=== PATIENT | female | born 1945 | race Two or more races ===

== ENCOUNTER → 2017-11-03 | Outpatient (CLI) | payer MEDICARE ==
--- NOTE | 2017-11-05 13:18 | MR ---
EXAMINATION TYPE: MR brain/cspine wo DATE OF EXAM: 11/03/2017 COMPARISON: NONE HISTORY: Essential Tremors,Neck Pain, since 2013 per patient and order. Neck pain causing pain and we akness into both arms and fingers since 2013 with headache and tremors per patient. TECHNIQUE: Multiplanar, multisequence imaging of the cervical spine, brain, and brainstem are all per formed without IV contrast. FINDINGS: Exam is suboptimal as is degraded by patient motion related to known underlying tremor. BRAIN: Diffusion weighted images demonstrate no evidence of a recent infarct or other diffusion abnormality. There is no worrisome extra-axial fluid collection. There is ventricular and sulcal prominence consis tent with diffuse cerebral atrophy. There are few scattered foci of T2 hyperintensity seen throughout the deep and periventricular white matter. Lesions are nonspecific in appearance and distribution ar e most likely on basis of product of chronic small vessel ischemic change in patient this age. Midline structures demonstrate normal morphology. The craniocervical junction appears within normal limits. Normal vascular flow voids are present. There is dominant left vertebral artery. There is tor tuous course to the vertebrobasilar system noted. There is suspected tortuous course to right posteri or communicating artery The visualized sinuses are clear and the globes are intact. IMPRESSION: Mild to moderate diffuse cerebral atrophy and mild chronic small vessel ischemic change. C-SPINE: FINDINGS: Sagittal images of the cervical spine show the craniocervical junction to appear within nor mal limits. The cervical and upper thoracic spinal cord is likely normal in course, caliber, and sig nal. Motion artifact degradation is noted making evaluation suboptimal. Vertebral alignment is anatom ic. There is mild to moderate disc space narrowing C5-C6 level otherwise the vertebral body and intra vertebral disk heights are normal. Posterior spur disc complex C5-C6 level and posterior disc herniat ion C6-C7 level are effacing the anterior thecal sac. There is mild to moderate anterior spurring faith tered C6 level. The bone marrow signal intensity is within normal limits. Axial images show the C2-C3 level to appear within normal limits. Axial images C3-C4 level shows some left-sided uncovertebral facet degenerative changes with spinal c anal is preserved bilateral neural foramina are patent. Axial images at C4-C5 level showed left paracentral disc protrusion and uncovertebral facet degenerat alejandro changes bilaterally. There is mild effacement anterior thecal sac and mild bilateral neuroforamin al narrowing. Axial images at C5-C6 level are significantly degraded by artifact. There is posterior spur disc comp hiral effacing anterior thecal sac and suspected mild bilateral neural foraminal narrowing. Axial images at C6-C7 level are significantly degraded by artifact. There is broad-based posterior di sc protrusion effacing the anterior thecal sac, bilateral neural foramina are patent. Axial images at C7-T1 level are degraded by artifact but felt within normal limits. IMPRESSION: Suboptimal study with multilevel degenerative changes seen most prominent at C5-C6 and C 6-C7 level as detailed above.
== END | disposition home or self-care (01) ==
LOC: RADMRIMAIN 19:27
PROVIDERS: ATTEND Psychiatry & Neurology Neurology
DX: M47.812 Spondylosis without myelopathy or radiculopathy, cervical region (principal); G31.9 Degenerative disease of nervous system, unspecified; I67.82 Cerebral ischemia
CPT/HCPCS: 70551; 72141

== ENCOUNTER 2018-01-02 08:52 | Day surgery (SDC) | payer MEDICARE ==
[2018-01-01 09:47] VITALS: BMI 28.7
[2018-01-02 09:18] VITALS: TEMP 97.7
[2018-01-02] MEDS: LACTATED RINGERS 1,000 ML IV SCH ×2 (09:21→09:24)
[2018-01-02] MEDS ORDERED: PROPOFOL 10 MG/ML 20 ML VIAL IV ONE (09:26)
[2018-01-02] MEDS ORDERED: LIDOCAINE 1% INJ 10MG/ML (20 ML MDV) ONE (09:26)
--- NOTE | 2018-01-02 09:28 | P.GSHP ---
History of Present Illness H&P Date: 01/02/18 Chief Complaint: GERD, GI bleed This a 72-year-old female referred from Dr. Irina Jackson. Patient presents today for EGD colonoscopy. She's had issues with GERD and GI bleed. Past Medical History Past Medical History: GERD/Reflux, Hyperlipidemia, Hypertension, Osteoarthritis (OA) Additional Past Medical History / Comment(s): ANEMIA History of Any Multi-Drug Resistant Organisms: None Reported Past Surgical History: Appendectomy, Cholecystectomy, Hysterectomy Past Anesthesia/Blood Transfusion Reactions: No Reported Reaction Smoking Status: Never smoker - Past Family History Mother Family Medical History: Dementia Brother(s) Family Medical History: Cancer Sister(s) Family Medical History: Cancer Medications and Allergies Home Medications Medication Instructions Recorded Confirmed Type Meloxicam [Mobic] 15 mg PO DAILY 01/01/18 01/02/18 History Omeprazole 40 mg PO DAILY 01/01/18 01/02/18 History Pramipexole [Mirapex] 1 mg PO HS 01/01/18 01/02/18 History Primidone [Mysoline] 50 mg PO HS 01/01/18 01/02/18 History Propranolol [Inderal] 40 mg PO BID 01/01/18 01/02/18 History Simvastatin [Zocor] 20 mg PO DAILY 01/01/18 01/02/18 History Valsartan [Diovan] 80 mg PO DAILY 01/01/18 01/02/18 History Allergies Allergy/AdvReac Type Severity Reaction Status Date / Time No Known Allergies Allergy Verified 01/02/18 09:18 Surgical - Exam Vital Signs Temp Pulse Resp BP Pulse Ox 97.7 F 107 H 20 162/93 93 L 01/02/18 09:17 01/02/18 09:17 01/02/18 09:17 01/02/18 09:17 01/02/18 09:17 - General well developed, no distress - Eyes PERRL - ENT normal pinna - Neck no masses - Respiratory normal expansion - Cardiovascular Rhythm: regular - Abdomen Abdomen: soft, non tender Assessment and Plan Assessment: GERD, GI bleed. We'll perform EGD colonoscopy.
--- NOTE | 2018-01-02 09:49 | P.OP ---
Date of Procedure: 01/02/18 Preoperative Diagnosis: GERD GI bleed Postoperative Diagnosis: Antral gastritis Hiatal hernia Esophagitis External hemorrhoids Procedure(s) Performed: EGD Colonoscopy Anesthesia: MAC Surgeon: Kevin Mckenna Pathology: other (Antrum) Condition: stable Disposition: PACU Description of Procedure: The patient's placed on the endoscopy table in the lateral position. She received IV sedation. Digital rectal exam was performed which revealed external hemorrhoids. The flexible colonoscope was then placed patient anus passed throughout the entire colon. The ileocecal valve was visualized. There was a large amount liquid stool throughout the colon. This limited the view of the mucosa. Cecum appeared normal. The ascending colon and transverse colon was normal. The descending and sigmoid colon was normal. Scope was brought back the rectum was normal. Scope was withdrawn through the anus and there is some minimal internal and more significant external hemorrhoids seen. Scope was withdrawn for patient. The gastroscope was placed into the oropharynx and passed into the esophagus and stomach. Scope was then placed through the pylorus. The first and second portion of the duodenum appeared normal. The scope was then brought back the antrum this appeared mildly inflamed. A biopsies performed. Scope was unretroflexed and remainder of the stomach appeared normal. There was a moderate size hiatal hernia. The hiatal hernia sliding. The GE junction was at 38 cm. The distal esophagus appeared inflamed and a biopsies performed. The proximal esophagus appeared normal. The withdrawn from patient.
[2018-01-02 10:08] VITALS: RESP 16
[2018-01-02 10:27] VITALS: BP 155/84
[2018-01-02 10:56] VITALS: PULSE 80
== END 2018-01-02 10:57 | disposition home or self-care (01) ==
LOC: ORWHC2ENDO 08:52
PROVIDERS: ATTEND Surgery
DX: K29.50 Unspecified chronic gastritis without bleeding (principal); K44.9 Diaphragmatic hernia without obstruction or gangrene; K21.0 Gastro-esophageal reflux disease with esophagitis; K64.4 Residual hemorrhoidal skin tags; K64.8 Other hemorrhoids; E78.5 Hyperlipidemia, unspecified; I10 Essential (primary) hypertension; M19.90 Unspecified osteoarthritis, unspecified site; R25.1 Tremor, unspecified; D64.9 Anemia, unspecified; Z79.1 Long term (current) use of non-steroidal anti-inflammatories (NSAID); Z79.899 Other long term (current) drug therapy
CPT/HCPCS: 88305; 88342; 45378; 43239; J2001; J2704

== ENCOUNTER → 2018-01-16 | Outpatient (CLI) | payer MEDICARE ==
--- NOTE | 2018-01-17 08:52 | NM ---
EXAMINATION TYPE: NM DatScan Brain SPECT DATE OF EXAM: 01/16/2018 COMPARISON: Brain MR 11/03/2017 HISTORY: Essential tremor, G 25.0 TECHNIQUE: 10 drops of Lugol's solution was administered 1 hour prior to injection as a thyroid bloc josie agent. After the administration of 4.35 mCi I-123 Ioflupane DaTscan. Images obtained 3 hours p ost injection. SPECT images of the brain were acquired with axial and coronal reconstructions. FINDINGS: Radio pharmaceutical uptake shows a normal crescent-shaped appearance bilaterally, symmetrically with in the striatum. IMPRESSION: Normal Ashly scan
== END | disposition home or self-care (01) ==
LOC: RADNMMAIN 10:53
PROVIDERS: ATTEND Psychiatry & Neurology Neurology
DX: G25.0 Essential tremor (principal)
CPT/HCPCS: 78607; A9584

== ENCOUNTER → 2018-03-21 | Outpatient (CLI) | payer MEDICARE | END | disposition home or self-care (01) | LOC: LABPAT 08:22 | PROVIDERS: ATTEND Surgery | DX: Z01.812 Encounter for preprocedural laboratory examination (principal); K21.9 Gastro-esophageal reflux disease without esophagitis; Z01.810 Encounter for preprocedural cardiovascular examination | CPT/HCPCS: 36415; 85025; 86850; 86900; 86901; 93005 ==

== ENCOUNTER 2018-03-30 06:47 | Inpatient (IN) | payer MEDICARE ==
[2018-03-21 09:20] LABS: Basophils % (A) 1 %; Eosinophils # (A) 0.1 k/uL (0-0.7); Eosinophils % (A) 2 %; HCT 31.7 % (34.0-46.0); HGB 10.8 gm/dL (11.4-16.0); Lymphocytes # (A) 1.6 k/uL (1.0-4.8); Lymphocytes % (A) 31 %; MCH 29.5 pg (25.0-35.0); MCHC 33.9 g/dL (31.0-37.0); MCV 86.9 fL (80.0-100.0); Mean Platelet Volume 7.1; Monocytes # (A) 0.4 k/uL (0-1.0); Monocytes % (A) 7 %; Neutrophils % (A) 58 %; Platelet Count 338 k/uL (150-450); RBC 3.65 m/uL (3.80-5.40); WBC 5.2 k/uL (3.8-10.6)
[2018-03-22 15:48] VITALS: BMI 29.2
[~2018-03-30 06:47] MED LIST: DEXAMETHASONE SOD PHOSPHATE 10 MG/ML 1 ML VIAL IV ONE; HEPARIN SODIUM,PORCINE 5,000 UNIT/ML 1 ML VIAL SQ ONE; LACTATED RINGERS 1,000 ML IV SCH; LIDOCAINE 1% 20 ML VIAL (10MG/ML) FOR IV START INTRADERMA PRN; MIDAZOLAM 2 MG/2 ML VIAL IV PRN; ONDANSETRON 4 MG/2 ML VIAL IVP ONE; SCOPOLAMINE 1.5MG/72HR PATCH TRANSDERM ONE; ceFAZolin IN SWFI 2 GM/20 ML SYRINGE IVP ONE
--- NOTE | 2018-03-30 07:51 | P.GSHP ---
History of Present Illness H&P Date: 03/30/18 Chief Complaint: GERD This is a 72-year-old female referred from that Miguel GENAO. Patient has excellent of GERD. She has issues with reflux in the supine position. She presents today for laparoscopic Roxy fundoplication.The patient has had long- standing problems with reflux esophagitis. The patient underwent recent EGD is found have evidence of esophagitis. Patient has been well informed on the procedure of laparoscopic Roxy fundoplication. The patient is aware the risk of the conversion to the open procedure, risk of injury to the stomach, liver and spleen. The patient is also a risk of recurrent GERD and dysphagia symptoms. The patient understands there is a postoperative diet of full liquids for 2 weeks after surgery. Past Medical History Past Medical History: GERD/Reflux, Hyperlipidemia, Hypertension, Osteoarthritis (OA) Additional Past Medical History / Comment(s): tremors in hand and heads, varicose veins rt leg, occasional dizzy spells and off balance "comes and goes" , seasonal allergies, hiatal hernia History of Any Multi-Drug Resistant Organisms: None Reported Past Surgical History: Appendectomy, Cholecystectomy, Hysterectomy Additional Past Surgical History / Comment(s): vein stripping lt leg Past Anesthesia/Blood Transfusion Reactions: No Reported Reaction Smoking Status: Never smoker - Past Family History Mother Family Medical History: Coronary Artery Disease (CAD), Dementia Brother(s) Family Medical History: Cancer, Congestive Heart Failure (CHF), Coronary Artery Disease (CAD) Additional Family Medical History / Comment(s): 1 brother of cancer, 1 of heart disease, 3 brothers agent orange 1 brother alzheimer Sister(s) Family Medical History: Cancer Additional Family Medical History / Comment(s): 2 sisters young of cancer Medications and Allergies Home Medications Medication Instructions Recorded Confirmed Type Meloxicam [Mobic] 15 mg PO DAILY PRN 01/01/18 03/30/18 History Omeprazole 40 mg PO DAILY 01/01/18 03/30/18 History Pramipexole [Mirapex] 1 mg PO HS 01/01/18 03/30/18 History Primidone [Mysoline] 50 mg PO HS 01/01/18 03/30/18 History Propranolol [Inderal] 40 mg PO BID 01/01/18 03/30/18 History Simvastatin [Zocor] 20 mg PO DAILY 01/01/18 03/30/18 History Valsartan [Diovan] 80 mg PO DAILY 01/01/18 03/30/18 History Aspirin [Adult Low Dose Aspirin EC] 81 mg PO DAILY 03/22/18 03/30/18 History Allergies Allergy/AdvReac Type Severity Reaction Status Date / Time No Known Allergies Allergy Verified 03/30/18 07:17 Surgical - Exam Vital Signs Temp Pulse Resp BP Pulse Ox 98.5 F 100 16 166/99 95 03/30/18 07:06 03/30/18 07:06 03/30/18 07:06 03/30/18 07:06 03/30/18 07:06 - General well developed, no distress - Eyes PERRL - ENT normal pinna - Neck no masses - Respiratory normal expansion - Cardiovascular Rhythm: regular - Abdomen Abdomen: soft, non tender Results - Labs 03/21/18 08:55 Assessment and Plan Assessment: GERD. We'll perform laparoscopic Roxy fundal plication.
[2018-03-30] MEDS ORDERED: LIDOCAINE 1% INJ 10MG/ML (20 ML MDV) ONE (08:03)
[2018-03-30] MEDS ORDERED: MIDAZOLAM 2 MG/2 ML VIAL ONE (08:03)
[2018-03-30] MEDS ORDERED: PROPOFOL 10 MG/ML 20 ML VIAL IV ONE (08:03)
[2018-03-30] MEDS ORDERED: fentaNYL (PF) 50 MCG/ML 2 ML AMP ONE (08:03)
[2018-03-30] MEDS ORDERED: SUCCINYLCHOLINE CHLORIDE 100 MG/5 ML SYR IV ONE (08:03)
[2018-03-30] MEDS ORDERED: BUPIVACAINE (PF) 0.5% 30 ML VIAL SQ ONE ×2 (08:26→08:36)
[2018-03-30] MEDS ORDERED: LACTATED RINGERS 1,000 ML IV ONE (09:00)
--- NOTE | 2018-03-30 09:38 | P.OP ---
Date of Procedure: 03/30/18 Preoperative Diagnosis: GERD Postoperative Diagnosis: GERD Procedure(s) Performed: Laparoscopic Roxy fundal plication Anesthesia: OLVIN Surgeon: Kevin Mckenna Estimated Blood Loss (ml): 5 Pathology: none sent Condition: stable Disposition: PACU Description of Procedure: Goyo patient was placed on the operating table in the supine position. The patient received general anesthesia. And was placed in dorsal lithotomy position. The patient was prepped and draped in the usual sterile fashion. The skin incision sites were anesthetized with 1% local Xylocaine. The skin was incised in the left periumbilical area and then using a blade less 5 mm trocar under direct visualization panel cavity was entered. After adequate insufflation the laparoscope was then placed into the peritoneal cavity. Next a 5 mm trochars placed in the right epigastric position. Another 5 millimeter trocar the right lateral position. Another 5 millimeter trocar in the left lateral position a 5 mm trocar is placed in the left epigastric position. And then the initial 5 mm trocar was exchanged for a 10 mm trocar. The left lateral lobe liver was retracted. The hernia was seen. The crural defect was then dissected using the Harmonic scissors device. A 360 crural dissection was performed the esophagus stomach was reduced back into the peritoneal Cavity. The crural defect was then closed using 2-0 Ethibond suture. Next the fundus of the stomach was mobilized using the Whitewright scissors device. and then a 58-Iranian bougie dilator was placed oropharynx passed into the esophagus and stomach the fundal plication wrap was then performed by grasping the fundus posteriorly and bringing it around the esophagus and stomach fundoplication was then performed using 2-0 Ethibond suture. Care was taken that the fundal location rested over top of the intra-abdominal esophagus. There was no injury seen to the stomach or esophagus. The dilator was then withdrawn. The abdomen was irrigated there is no bleeding seen. The trochars were then withdrawn and then skin incision sites were closed using 3-0 Monocryl suture Steri-Strips are applied. Patient thought procedure well and sent to recovery room in stable condition.
[2018-03-30] MEDS: HYDROmorphone 0.5 MG/0.5 ML SYRINGE IVP PRN ×2 (09:43→09:56)
[2018-03-30] MEDS: MORPHINE SULFATE 4 MG/ML SYRINGE IVP ONE ×2 (10:26→10:39)
[2018-03-30] MEDS ORDERED: HYDROmorphone 0.5 MG/0.5 ML SYRINGE IVP PRN (10:54)
[2018-03-30] MEDS ORDERED: HYDROcodone/APAP 7.5-325MG 1 EACH TAB PO PRN (10:55)
[2018-03-30] MEDS: LACTATED RINGERS 1,000 ML IV SCH ×2 (11:33→22:29)
--- NOTE | 2018-03-30 14:28 | P.CONS ---
History of Present Illness - Reason for Consult Consult date: 03/30/18 Medical management Requesting physician: Kevin Mckenna - Chief Complaint Status post Roxy fundoplication - History of Present Illness This is a 72-year-old female with a known history of GERD, benign essential tremor, hyperlipidemia, hypertension and osteoarthritis. Patient presents to the hospital for Roxy fundoplication to her to her history of GERD. She had a recent EGD that showed evidence of esophagitis. Patient underwent left scalp Roxy complication today. She has tolerated surgery well. We have been consulted for medical management. Postoperatively she has been slightly tachycardic. Heart rate in the low 100s to 1 teens. Patient did not take her beta fernando this morning because she was nothing by mouth before surgery. We' ll resume her propranolol now. Patient denies any chest pain, heart palpitations, shortness of breath, nausea or vomiting. Denies any bowel movement changes prior to surgery. Denies any burning with urination. Nursing staff does report difficulty to obtain accurate pulse due to patient's tremor. Review of Systems Please refer to HPI otherwise unremarkable Past Medical History Past Medical History: GERD/Reflux, Hyperlipidemia, Hypertension, Osteoarthritis (OA) Additional Past Medical History / Comment(s): tremors in hand and heads, varicose veins rt leg, occasional dizzy spells and off balance "comes and goes" , seasonal allergies, hiatal hernia History of Any Multi-Drug Resistant Organisms: None Reported Past Surgical History: Appendectomy, Cholecystectomy, Hysterectomy Additional Past Surgical History / Comment(s): vein stripping lt leg Past Anesthesia/Blood Transfusion Reactions: No Reported Reaction Past Psychological History: No Psychological Hx Reported Smoking Status: Never smoker Past Alcohol Use History: None Reported Past Drug Use History: None Reported - Past Family History Mother Family Medical History: Coronary Artery Disease (CAD), Dementia Brother(s) Family Medical History: Cancer, Congestive Heart Failure (CHF), Coronary Artery Disease (CAD) Additional Family Medical History / Comment(s): 1 brother of cancer, 1 of heart disease, 3 brothers agent orange 1 brother alzheimer Sister(s) Family Medical History: Cancer Additional Family Medical History / Comment(s): 2 sisters young of cancer Medications and Allergies Home Medications Medication Instructions Recorded Confirmed Type Meloxicam [Mobic] 15 mg PO DAILY PRN 01/01/18 03/30/18 History Omeprazole 40 mg PO DAILY 01/01/18 03/30/18 History Pramipexole [Mirapex] 1 mg PO HS 01/01/18 03/30/18 History Primidone [Mysoline] 50 mg PO HS 01/01/18 03/30/18 History Propranolol [Inderal] 40 mg PO BID 01/01/18 03/30/18 History Simvastatin [Zocor] 20 mg PO DAILY 01/01/18 03/30/18 History Valsartan [Diovan] 80 mg PO DAILY 01/01/18 03/30/18 History Aspirin [Adult Low Dose Aspirin EC] 81 mg PO DAILY 03/22/18 03/30/18 History Docusate [Colace] 100 mg PO BID #20 capsule 03/30/18 Rx HYDROcodone/APAP 7.5-325MG [[place] 1 tab PO Q4H PRN 3 Days #18 tab 03/30/18 Rx 7.5-325] Allergies Allergy/AdvReac Type Severity Reaction Status Date / Time No Known Allergies Allergy Verified 03/30/18 11:32 Physical Exam Vitals: Vital Signs Temp Pulse Pulse Pulse Resp BP BP 03/30/18 13:46 103 H 18 106/88 03/30/18 12:00 102 H 18 124/69 03/30/18 11:39 97.4 F L 101 H 20 124/65 03/30/18 11:30 101 H 18 03/30/18 11:00 100 18 141/65 03/30/18 10:55 90 16 03/30/18 10:40 91 16 03/30/18 10:25 93 16 03/30/18 10:10 94 16 03/30/18 09:55 93 16 03/30/18 09:40 100 16 03/30/18 09:25 98.6 F 114 H 16 03/30/18 07:06 98.5 F 100 16 166/99 BP Pulse Ox 03/30/18 13:46 96 03/30/18 12:00 97 03/30/18 11:39 97 03/30/18 11:30 03/30/18 11:00 97 03/30/18 10:55 146/90 97 03/30/18 10:40 152/87 03/30/18 10:25 150/85 97 03/30/18 10:10 157/97 97 03/30/18 09:55 151/94 92 L 03/30/18 09:40 148/96 99 03/30/18 09:25 152/95 97 03/30/18 07:06 95 Intake and Output 03/29/18 03/30/18 03/30/18 22:59 06:59 14:59 Intake Total 2030 Output Total 330 Balance 1700 Intake: IV 2000 Oral 30 Output: Urine 325 Estimated Blood Loss 5 Other: Weight 72.575 kg Head normocephalic Neck supple Lungs clear to auscultation bilaterally no wheezing or crackles Heart regular rate and rhythm S1-S2, no rub or gallop Abdomen is soft tender incision site nondistended positive bowel sounds no hepatosplenomegaly Extremities no edema Neuro alert and orientated to 3. Patient has known tremor through her hands and her head Results CBC & Chem 7: 03/21/18 08:55 Assessment and Plan Assessment: 1. GERD: Status post laparoscopic Roxy fundoplication. Continue with surgical postop orders 2. Tachycardia: Likely related to patient not taking her beta fernando this morning. We'll resume the propranolol and give a dose now. Check EKG to confirm sinus tachycardia 3. History of a benign essential tremor: Follows up with Dr. Armenta outpatient. Continue the primidone and Mirapex 4. Essential hypertension continue the Diovan and the Inderal 5. Hyperlipidemia: Resume statin DVT prophylaxis subcu heparin Thank you for this consultation. We will continue to follow along during patient's hospitalization. We'll check a CBC and CMP in a.m. Time with Patient: Greater than 30 (Greater than 60% of the total time spent in counseling and coordination of care.I performed an examination of the patient and discussed their management with the physician Manager Long Term Care. I have reviewed the Physician Manager Long Term Care's notes and agree with the documented findings and plan of care)
--- NOTE | 2018-03-30 15:19 | FL ---
EXAMINATION TYPE: FL esophagus cervic/pharynx DATE OF EXAM: 03/30/2018 LIMITED UGI-ESOPHAGRAM: CLINICAL HISTORY: Roxy fundoplication TECHNIQUE: Limited esophagram is performed utilizing 80 mL of Isovue-370 or early. A total of 1.01 m inutes of fluoroscopy time was utilized with 11 images saved. FINDINGS: The patient swallowed contrast without difficulty or delay. Esophageal peristalsis and mo tility are within normal limits. There is marked delay of flow of contrast along the diaphragmatic hi atus into the stomach, there is no evidence of contrast extravasation to suggest leak. No persistent hiatal hernia is seen. Patient remains asymptomatic. IMPRESSION: No evidence of postoperative leak. Marked delay in flow of contrast along the diaphragmat ic hiatus into the stomach status post Ivan fundoplication surgery earlier today.
[2018-03-30] MEDS: PROPRANOLOL 40 MG TAB PO SCH ×2 (18:23→20:33)
[2018-03-30] MEDS: ONDANSETRON 4 MG/2 ML VIAL IVP PRN (18:30)
[2018-03-30] MEDS: PRAMIPEXOLE 1 MG TAB PO SCH (20:33)
[2018-03-30] MEDS: HEPARIN SODIUM,PORCINE 5,000 UNIT/ML 1 ML VIAL SQ SCH (20:33)
[2018-03-30] MEDS: PRIMIDONE 50 MG TAB PO SCH (20:33)
[2018-03-31] MEDS: ONDANSETRON 4 MG/2 ML VIAL IVP PRN (01:46)
[2018-03-31] MEDS: LACTATED RINGERS 1,000 ML IV SCH ×2 (06:23→16:37)
[2018-03-31 06:56] LABS: Basophils % (A) 0 %; Eosinophils % (A) 0 %; HCT 27.3 % (34.0-46.0); Lymphocytes # (A) 1.4 k/uL (1.0-4.8); Lymphocytes % (A) 19 %; MCH 29.5 pg (25.0-35.0); MCHC 33.8 g/dL (31.0-37.0); MCV 87.3 fL (80.0-100.0); Monocytes # (A) 0.4 k/uL (0-1.0); Monocytes % (A) 5 %; Neutrophils # (A) 5.8 k/uL (1.3-7.7); Neutrophils % (A) 75 %; Platelet Count 267 k/uL (150-450); RBC 3.13 m/uL (3.80-5.40); RDW 13.2 % (11.5-15.5); WBC 7.7 k/uL (3.8-10.6)
[2018-03-31 06:58] LABS: HGB 9.2 gm/dL (11.4-16.0)
[2018-03-31 07:24] LABS: ALT 35 U/L (9-52); AST 33 U/L (14-36); Albumin 3.5 g/dL (3.5-5.0); Alkaline Phosphatase 55 U/L (38-126); Anion Gap 8 mmol/L; Blood Urea Nitrogen 9 mg/dL (7-17); Carbon Dioxide 27 mmol/L (22-30); Chloride 91 mmol/L (98-107); Glucose 107 mg/dL (74-99); Potassium 4.3 mmol/L (3.5-5.1); Sodium 126 mmol/L (137-145); Total Bilirubin 0.5 mg/dL (0.2-1.3); Total Protein 5.7 g/dL (6.3-8.2)
--- NOTE | 2018-03-31 08:23 | P.PN ---
Subjective Progress Note Date: 03/31/18 Patient is status post Roxy fundoplication, redo. She is postop day 1. She is tolerating fluids this morning. No reports of abdominal pain. She denies any dysphagia. She is passing flatus as well. She has no complaints. Objective - Vital Signs Vital signs: Vital Signs Temp 98.0 F 03/30/18 23:45 Pulse 68 03/30/18 23:45 Resp 16 03/30/18 23:45 BP 139/89 03/30/18 23:45 Pulse Ox 92 L 03/30/18 23:45 Intake & Output 03/30/18 03/31/18 03/31/18 18:59 06:59 18:59 Intake Total 2030 Output Total 405 0 Balance 1625 0 Weight 72.575 kg Intake: IV 2000 Oral 30 Output: Urine 400 0 Estimated Blood Loss 5 Other: # Voids 2 1 - Exam GENERAL: Well developed and in no acute distress. Pleasant. HEENT: No sclera icterus. Extraocular movements grossly intact. Moist buccal mucosa. Head is atraumatic, normocephalic. Hears conversational speech. No nasal drainage. CHEST: Non-labored respirations and equal bilateral excursions. CARDIOVASCULAR: Regular rate and rhythm. Palpable 2+ radial pulses. ABDOMEN: Soft, nontender. Nondistended. Incisions clean dry and intact. MUSCULOSKELETAL: No clubbing, cyanosis or edema. NEUROLOGIC: No focal or lateralizing signs. Has baseline resting tremors. PSYCH: Appropriate affect. Alert and oriented to person, place and time. SKIN: Good skin turgor. Well perfused. - Labs CBC & Chem 7: 03/31/18 06:40 03/31/18 06:40 Labs: Abnormal Lab Results - Last 24 Hours (Table) 03/31/18 03/31/18 Range/Units 06:40 06:40 RBC 3.13 L (3.80-5.40) m/uL Hgb 9.2 L D (11.4-16.0) gm/dL Hct 27.3 L (34.0-46.0) % Sodium 126 L (137-145) mmol/L Chloride 91 L (98-107) mmol/L Glucose 107 H (74-99) mg/dL Total Protein 5.7 L (6.3-8.2) g/dL Assessment and Plan (1) Hiatal hernia Current Visit: Yes Status: Acute Code(s): K44.9 - DIAPHRAGMATIC HERNIA WITHOUT OBSTRUCTION OR GANGRENE SNOMED Code(s): 01319185 (2) Gastro-esophageal reflux disease with esophagitis Current Visit: Yes Status: Acute Code(s): K21.0 - GASTRO-ESOPHAGEAL REFLUX DISEASE WITH ESOPHAGITIS SNOMED Code(s): 609518131 (3) Benign essential tremor Current Visit: Yes Status: Acute Code(s): G25.0 - ESSENTIAL TREMOR SNOMED Code(s): 288094105 Plan: 1. Patient is tolerating liquids despite esophagram report. 2. She has no complaints. 3. Discharge instructions reviewed.
[2018-03-31] MEDS: PROPRANOLOL 40 MG TAB PO SCH ×2 (08:53→21:44)
[2018-03-31] MEDS: ATORVASTATIN 10 MG TAB PO SCH (08:53)
[2018-03-31] MEDS: VALSARTAN 80 MG TAB PO SCH (08:55)
[2018-03-31] MEDS: HEPARIN SODIUM,PORCINE 5,000 UNIT/ML 1 ML VIAL SQ SCH ×2 (09:47→21:43)
--- NOTE | 2018-03-31 09:51 | P.PN ---
Progress Note - Text Progress Note Date: 03/31/18 Review of patient's labs, sodium is 126 with hyponatremia. Continue with medical management. Continue hospitalization secondary to symptomatic hyponatremia.
--- NOTE | 2018-03-31 13:10 | P.PN ---
Subjective Progress Note Date: 03/31/18 This is a 72-year-old female with a known history of GERD, benign essential tremor, hyperlipidemia, hypertension and osteoarthritis. Patient presents to the hospital for Roxy fundoplication to her to her history of GERD. She had a recent EGD that showed evidence of esophagitis. Patient underwent left scalp Roxy complication today. She has tolerated surgery well. We have been consulted for medical management. Postoperatively she has been slightly tachycardic. Heart rate in the low 100s to 1 teens. Patient did not take her beta fernando this morning because she was nothing by mouth before surgery. We' ll resume her propranolol now. Patient denies any chest pain, heart palpitations, shortness of breath, nausea or vomiting. Denies any bowel movement changes prior to surgery. Denies any burning with urination. Nursing staff does report difficulty to obtain accurate pulse due to patient's tremor. On 03/31/2018 patient is alert and oriented 3 she has occasional cough and is complaining of nausea Otherwise she denies any complaints there is no fever or chills no headache or dizziness no chest pain or shortness of breath no vomiting no abdominal pain no diarrhea no burning with urination no frequency or urgency and no hematuria. Objective - Vital Signs Vital signs: Vital Signs Temp 98.2 F 03/31/18 11:08 Pulse 113 H 03/31/18 11:08 Resp 16 03/31/18 11:08 BP 146/73 03/31/18 11:08 Pulse Ox 95 03/31/18 11:08 Intake & Output 03/30/18 03/31/18 03/31/18 18:59 06:59 18:59 Intake Total 2030 Output Total 405 0 300 Balance 1625 0 -300 Weight 72.575 kg Intake: IV 2000 Oral 30 Output: Urine 400 0 300 Estimated Blood Loss 5 Other: # Voids 2 1 1 - Exam Head normocephalic, and atraumatic Neck supple no JVD no goiter Lungs clear to auscultation bilaterally no wheezing or crackles Heart regular rate and rhythm S1-S2, no rub or gallop Abdomen is soft tender incision site nondistended positive bowel sounds no hepatosplenomegaly Extremities no edema no cyanosis or clubbing Neuro alert and orientated to 3. Patient has known tremor through her hands and her head - Labs CBC & Chem 7: 03/31/18 06:40 03/31/18 06:40 Labs: Abnormal Lab Results - Last 24 Hours (Table) 03/31/18 03/31/18 Range/Units 06:40 06:40 RBC 3.13 L (3.80-5.40) m/uL Hgb 9.2 L D (11.4-16.0) gm/dL Hct 27.3 L (34.0-46.0) % Sodium 126 L (137-145) mmol/L Chloride 91 L (98-107) mmol/L Glucose 107 H (74-99) mg/dL Total Protein 5.7 L (6.3-8.2) g/dL Assessment and Plan Plan: 1. GERD: Status post laparoscopic Roxy fundoplication. Continue with surgical postop orders 2. Tachycardia: resume propranolol 3. History of a benign essential tremor: Follows up with Dr. Armenta outpatient. Continue the primidone and Mirapex 4. Essential hypertension continue the Diovan and the Inderal 5. Hyperlipidemia: Resume statin 6. Hyponatremia sodium 126, IV fluids changed to normal saline at 75 mL an hour DVT prophylaxis subcu heparin
[2018-03-31] MEDS: SODIUM CHLORIDE 0.9% 1,000 ML IV SCH (14:30)
[2018-03-31] MEDS: PRIMIDONE 50 MG TAB PO SCH (21:44)
[2018-03-31] MEDS: PRAMIPEXOLE 1 MG TAB PO SCH (21:44)
[2018-04-01] MEDS: SODIUM CHLORIDE 0.9% 1,000 ML IV SCH (04:00)
[2018-04-01 06:43] LABS: Basophils % (A) 0 %; Eosinophils # (A) 0.1 k/uL (0-0.7); Eosinophils % (A) 2 %; HCT 30.7 % (34.0-46.0); HGB 10.3 gm/dL (11.4-16.0); Lymphocytes # (A) 1.3 k/uL (1.0-4.8); Lymphocytes % (A) 20 %; MCH 29.1 pg (25.0-35.0); MCHC 33.4 g/dL (31.0-37.0); MCV 87.1 fL (80.0-100.0); Mean Platelet Volume 7.2; Monocytes # (A) 0.4 k/uL (0-1.0); Monocytes % (A) 5 %; Neutrophils % (A) 73 %; Platelet Count 297 k/uL (150-450); RBC 3.53 m/uL (3.80-5.40); RDW 13.2 % (11.5-15.5); WBC 6.8 k/uL (3.8-10.6)
[2018-04-01 06:55] LABS: ALT 34 U/L (9-52); AST 34 U/L (14-36); Albumin 3.8 g/dL (3.5-5.0); Alkaline Phosphatase 60 U/L (38-126); Anion Gap 9 mmol/L; Blood Urea Nitrogen 7 mg/dL (7-17); Calcium 8.7 mg/dL (8.4-10.2); Carbon Dioxide 28 mmol/L (22-30); Chloride 95 mmol/L (98-107); Glucose 102 mg/dL (74-99); Potassium 3.7 mmol/L (3.5-5.1); Sodium 132 mmol/L (137-145); Total Bilirubin 0.4 mg/dL (0.2-1.3); Total Protein 6.1 g/dL (6.3-8.2)
[2018-04-01] MEDS: ATORVASTATIN 10 MG TAB PO SCH (08:06)
[2018-04-01] MEDS: PROPRANOLOL 40 MG TAB PO SCH (08:07)
[2018-04-01] MEDS: VALSARTAN 80 MG TAB PO SCH (08:07)
[2018-04-01] MEDS: HEPARIN SODIUM,PORCINE 5,000 UNIT/ML 1 ML VIAL SQ SCH (08:07)
[2018-04-01] MEDS: LACTATED RINGERS 1,000 ML IV SCH (08:14)
--- NOTE | 2018-04-01 09:24 | P.PN ---
Subjective Progress Note Date: 04/01/18 Patient is status post Roxy fundoplication, redo. She is postop day 2. Her discharge was held yesterday secondary to severe hyponatremia. No reports of pain this morning. She is tolerating diet. She feels well. Management of hyponatremia has been per medicine team. Objective - Vital Signs Vital signs: Vital Signs Temp 98.1 F 04/01/18 07:30 Pulse 59 L 04/01/18 07:30 Resp 18 04/01/18 07:30 BP 161/63 04/01/18 07:30 Pulse Ox 96 04/01/18 07:30 Intake & Output 03/31/18 04/01/18 04/01/18 18:59 06:59 18:59 Output Total 900 800 Balance -900 -800 Output: Urine 900 800 Other: # Voids 2 1 - Labs CBC & Chem 7: 04/01/18 06:28 04/01/18 06:28 Labs: Abnormal Lab Results - Last 24 Hours (Table) 04/01/18 04/01/18 Range/Units 06:28 06:28 RBC 3.53 L (3.80-5.40) m/uL Hgb 10.3 L (11.4-16.0) gm/dL Hct 30.7 L (34.0-46.0) % Sodium 132 L (137-145) mmol/L Chloride 95 L (98-107) mmol/L Glucose 102 H (74-99) mg/dL Total Protein 6.1 L (6.3-8.2) g/dL Assessment and Plan (1) Hiatal hernia Current Visit: Yes Status: Acute Code(s): K44.9 - DIAPHRAGMATIC HERNIA WITHOUT OBSTRUCTION OR GANGRENE SNOMED Code(s): 31922943 (2) Gastro-esophageal reflux disease with esophagitis Current Visit: Yes Status: Acute Code(s): K21.0 - GASTRO-ESOPHAGEAL REFLUX DISEASE WITH ESOPHAGITIS SNOMED Code(s): 367729789 (3) Benign essential tremor Current Visit: Yes Status: Acute Code(s): G25.0 - ESSENTIAL TREMOR SNOMED Code(s): 331130017 (4) Hyponatremia syndrome Current Visit: Yes Status: Acute Code(s): E87.1 - HYPO-OSMOLALITY AND HYPONATREMIA SNOMED Code(s): 2448644 Plan: 1. Sodium has improved today. 2. See is surgically stable and tolerating liquids. 3. Management of hyponatremia per medicine. 4. Potassium discharge when she is medically stable.
[2018-04-01 12:57] VITALS: BP 158/82; PULSE 135; RESP 19; TEMP 97.7
--- NOTE | 2018-04-01 13:55 | P.PN ---
Progress Note - Text Progress Note Date: 04/01/18 I am notified by nursing that medicine team has cleared the patient for discharge.
--- NOTE | 2018-04-01 14:04 | P.PN ---
Subjective Progress Note Date: 04/01/18 This is a 72-year-old female with a known history of GERD, benign essential tremor, hyperlipidemia, hypertension and osteoarthritis. Patient presents to the hospital for Roxy fundoplication to her to her history of GERD. She had a recent EGD that showed evidence of esophagitis. Patient underwent left scalp Roxy complication today. She has tolerated surgery well. We have been consulted for medical management. Postoperatively she has been slightly tachycardic. Heart rate in the low 100s to 1 teens. Patient did not take her beta fernando this morning because she was nothing by mouth before surgery. We' ll resume her propranolol now. Patient denies any chest pain, heart palpitations, shortness of breath, nausea or vomiting. Denies any bowel movement changes prior to surgery. Denies any burning with urination. Nursing staff does report difficulty to obtain accurate pulse due to patient's tremor. On 03/31/2018 patient is alert and oriented 3 she has occasional cough and is complaining of nausea Otherwise she denies any complaints there is no fever or chills no headache or dizziness no chest pain or shortness of breath no vomiting no abdominal pain no diarrhea no burning with urination no frequency or urgency and no hematuria. On 04/01/2018 patient is alert and oriented 3 in no apparent distress she denies any fever or chills no headache or dizziness no chest pain or shortness of breath no cough no nausea or vomiting no abdominal pain no diarrhea or constipation no burning was urination no frequency or urgency and no hematuria Objective - Vital Signs Vital signs: Vital Signs Temp 97.7 F 04/01/18 12:56 Pulse 135 H 04/01/18 12:56 Resp 19 04/01/18 12:56 BP 158/82 04/01/18 12:56 Pulse Ox 93 L 04/01/18 12:56 Intake & Output 03/31/18 04/01/18 04/01/18 18:59 06:59 18:59 Output Total 900 800 Balance -900 -800 Output: Urine 900 800 Other: # Voids 2 1 - Exam Head normocephalic, and atraumatic Neck supple no JVD no goiter Lungs clear to auscultation bilaterally no wheezing or crackles Heart regular rate and rhythm S1-S2, no rub or gallop Abdomen is soft tender incision site nondistended positive bowel sounds no hepatosplenomegaly Extremities no edema no cyanosis or clubbing Neuro alert and orientated to 3. Patient has known tremor through her hands and her head - Labs CBC & Chem 7: 04/01/18 06:28 04/01/18 06:28 Labs: Abnormal Lab Results - Last 24 Hours (Table) 04/01/18 04/01/18 Range/Units 06:28 06:28 RBC 3.53 L (3.80-5.40) m/uL Hgb 10.3 L (11.4-16.0) gm/dL Hct 30.7 L (34.0-46.0) % Sodium 132 L (137-145) mmol/L Chloride 95 L (98-107) mmol/L Glucose 102 H (74-99) mg/dL Total Protein 6.1 L (6.3-8.2) g/dL Assessment and Plan Plan: 1. GERD: Status post laparoscopic Roxy fundoplication. Continue with surgical postop orders 2. Tachycardia: resume propranolol 3. History of a benign essential tremor: Follows up with Dr. Armenta outpatient. Continue the primidone and Mirapex 4. Essential hypertension continue the Diovan and the Inderal 5. Hyperlipidemia: Resume statin 6. Hyponatremia sodium 126, IV fluids changed to normal saline at 75 mL an hour , sodium improved up to 132 Patient is medically cleared for discharge DVT prophylaxis subcu heparin
== END 2018-04-01 14:11 | disposition home or self-care (01) | DRG 327 ==
LOC: OR 06:47 → EC 06:47 → EDSTATUS 08:00 → OR 09:12 → 6PED 09:12 → EC 04-01 09:57 → 6PED 04-01 09:58
PROVIDERS: ADMIT Surgery; ATTEND Surgery
PROC: 0DV44ZZ Restriction of Esophagogastric Junction, Percutaneous Endoscopic Approach (ICD-10-PCS; principal; 2018-04-01)
DX: K21.9 Gastro-esophageal reflux disease without esophagitis (principal); E87.1 Hypo-osmolality and hyponatremia; E78.5 Hyperlipidemia, unspecified; I10 Essential (primary) hypertension; M19.90 Unspecified osteoarthritis, unspecified site; Z90.49 Acquired absence of other specified parts of digestive tract; Z82.49 Family history of ischemic heart disease and other diseases of the circulatory system; Z82.0 Family history of epilepsy and other diseases of the nervous system; Z80.9 Family history of malignant neoplasm, unspecified; Z79.1 Long term (current) use of non-steroidal anti-inflammatories (NSAID); Z79.82 Long term (current) use of aspirin; Z79.899 Other long term (current) drug therapy; R00.0 Tachycardia, unspecified; G25.0 Essential tremor
CPT/HCPCS: 36415; 74210; 80053; 85025; 86850; 86900; 86901; 93005

== ENCOUNTER → 2018-07-19 | Outpatient (CLI) | payer MEDICARE ==
[2018-07-19 16:42] LABS: Blood Urea Nitrogen 9 mg/dL (7-17)
--- NOTE | 2018-07-19 23:56 | CT ---
EXAMINATION TYPE: CT abdomen pelvis w con DATE OF EXAM: 07/19/2018 HISTORY: Epigastric pain x3 months per patient. Left lower quadrant pain for water. CT DLP: 484.6mGycm Automated Exposure Control for Dose Reduction was Utilized. CONTRAST: CT scan of the abdomen and pelvis is performed with IV Contrast, patient injected with 100 mL of Isov ue 300. COMPARISON: None FINDINGS: LUNG BASES: There are suspected coronary artery calcification in the RCA distribution or coronary diana nt. LIVER/GB: Cholecystectomy clips are present. PANCREAS: No significant abnormality is seen. SPLEEN: Numerous calcifications scattered throughout the spleen are positioned product of old granulo matous disease. ADRENALS: No significant abnormality is seen. KIDNEYS: There is 1.2 cm low dense lesion laterally upper to mid pole level left kidney axial image 2 8 favoring simple cyst. There is symmetric cortical medullary uptake and excretion from both kidneys without evidence of hydronephrosis bilaterally. BOWEL: Oral contrast reaches level of right colon. There are surgical changes epigastric region likel y from Ivan fundoplication surgery. There is contrast distended stomach. Contrast is seen in nondis tended duodenal sweep. Contrast is seen in slightly prominent small bowel loops throughout the lower abdomen. Some air fluid levels are present distally with small bowel loops being dilated greater than 3 cm in the right lower quadrant. Terminal ileum is not suspiciously dilated. A developing or partia l distal small bowel obstruction cannot be excluded. There is fairly severe prominence of fecal mater ial throughout the right and sigmoid colon. There is no suspicious dilatation or fecal material in th e left and sigmoid colon. No obvious mass is present. No obvious stricture is seen. There is focal mo derate wall thickening near level of splenic flexure. UTERUS/ADNEXA: Uterus is surgically absent or markedly atrophic in appearance. LYMPH NODES: No greater than 1cm abdominal or pelvic lymph nodes are appreciated. OSSEOUS STRUCTURES: There is moderate multilevel spurring in the visualized thoracic spine. OTHER: There is moderate calcified plaque of aorta extending into branch vessels. IMPRESSION: Fairly moderate to severe proximal to mid colonic fecal stasis, cannot exclude obstructin g or constricting mass/neoplasm near level of splenic flexure. Correlation with colonoscopy is advise d. Cannot exclude partial or developing distal small bowel obstruction as there is some dilatation of distal small bowel loops in the right lower quadrant with fairly collapsed terminal ileum.
== END | disposition home or self-care (01) ==
LOC: RADCTMAIN 16:02
PROVIDERS: ATTEND Surgery
DX: K59.8 Other specified functional intestinal disorders (principal)
CPT/HCPCS: 82565; 84520; 74177; 36415; Q9967

== ENCOUNTER 2018-07-26 08:28 | Day surgery (SDC) | payer MEDICARE ==
[2018-07-25 10:22] VITALS: BMI 25.6
[2018-07-26 09:12] VITALS: TEMP 97.3
[2018-07-26] MEDS ORDERED: LACTATED RINGERS 1,000 ML IV ONE (09:17)
[2018-07-26] MEDS ORDERED: LIDOCAINE 1% 20 ML VIAL (10MG/ML) FOR IV START INTRADERMA ONE (09:17)
[2018-07-26] MEDS ORDERED: LIDOCAINE 1% INJ 10MG/ML (20 ML MDV) ONE (10:05)
[2018-07-26] MEDS ORDERED: PROPOFOL 10 MG/ML 20 ML VIAL IV ONE (10:05)
--- NOTE | 2018-07-26 10:09 | P.GSHP ---
History of Present Illness H&P Date: 07/26/18 Chief Complaint: Constipation This is a 73-year-old female who presents today for colonoscopy. Patient's had issues with constipation. Her recent CAT scan shows evidence of severe constipation of the proximal colon. The radiologist's unable to determine if there is a splenic flexure constricting lesion. She presents today for colonoscopy to evaluate the colon for any potential blockage. Past Medical History Past Medical History: GERD/Reflux, Hyperlipidemia, Hypertension, Osteoarthritis (OA) Additional Past Medical History / Comment(s): tremors in hand and heads, varicose veins rt leg, occasional dizzy spells and off balance "comes and goes" , seasonal allergies, NO BM IN 1 1/2 WEEKS PER PT History of Any Multi-Drug Resistant Organisms: None Reported Past Surgical History: Appendectomy, Cholecystectomy, Hysterectomy Additional Past Surgical History / Comment(s): vein stripping lt leg. DIANA PROCEDURE 03/30/18. COLONOSCOPY Past Anesthesia/Blood Transfusion Reactions: No Reported Reaction Smoking Status: Never smoker - Past Family History Mother Family Medical History: Coronary Artery Disease (CAD), Dementia Brother(s) Family Medical History: Cancer, Congestive Heart Failure (CHF), Coronary Artery Disease (CAD) Additional Family Medical History / Comment(s): 1 brother of cancer, 1 of heart disease, 3 brothers agent orange 1 brother alzheimer Sister(s) Family Medical History: Cancer Additional Family Medical History / Comment(s): 2 sisters young of cancer Medications and Allergies Home Medications Medication Instructions Recorded Confirmed Type Omeprazole 40 mg PO DAILY 01/01/18 07/25/18 History Pramipexole [Mirapex] 1 mg PO HS 01/01/18 07/25/18 History Primidone [Mysoline] 50 mg PO HS 01/01/18 07/25/18 History Propranolol [Inderal] 40 mg PO BID 01/01/18 07/25/18 History Simvastatin [Zocor] 20 mg PO DAILY 01/01/18 07/25/18 History Aspirin [Adult Low Dose Aspirin EC] 81 mg PO DAILY 03/22/18 07/25/18 History Ibuprofen [Motrin] 600 mg PO Q8HR PRN 07/25/18 07/25/18 History Losartan [Cozaar] 25 mg PO DAILY 07/25/18 07/25/18 History Allergies Allergy/AdvReac Type Severity Reaction Status Date / Time No Known Allergies Allergy Verified 07/26/18 09:09 Surgical - Exam Vital Signs Temp Pulse Resp BP Pulse Ox 97.3 F L 70 16 157/76 91 L 07/26/18 09:05 07/26/18 09:05 07/26/18 09:05 07/26/18 09:05 07/26/18 09:05 - General well developed, no distress - Eyes PERRL - ENT normal pinna, normal nares - Neck no masses - Respiratory normal expansion - Cardiovascular Rhythm: regular - Abdomen Abdomen: soft, non tender Assessment and Plan Assessment: Severe constipation. We'll perform colonoscopy to evaluate for possible splenic flexure obstruction
--- NOTE | 2018-07-26 10:27 | P.OP ---
Date of Procedure: 07/26/18 Preoperative Diagnosis: Constipation Postoperative Diagnosis: Constipation Procedure(s) Performed: Colonoscopy Anesthesia: MAC Surgeon: Kevin Mckenna Pathology: none sent Condition: stable Disposition: PACU Description of Procedure: W PROCEDURE: The patient was placed on the endoscopy table in the lateral position. Digital rectal examination was performed which revealed no abnormalities. Flexible colonoscope was then placed in the patient's anus and passed throughout the entire colon. The ileocecal valve was visualized. The cecum, ascending, transverse, descending and sigmoid colon were normal. The rectum was normal as well. There were no masses, polyps or diverticula noted in the entire colon. SUMMARY OF FINDINGS: Normal colonoscopy.
[2018-07-26 10:29] VITALS: PULSE 51
[2018-07-26 10:48] VITALS: BP 152/87; RESP 18
== END 2018-07-26 11:01 | disposition home or self-care (01) ==
LOC: ORWHC2ENDO 08:28
PROVIDERS: ATTEND Surgery
DX: K59.00 Constipation, unspecified (principal); K21.9 Gastro-esophageal reflux disease without esophagitis; E78.5 Hyperlipidemia, unspecified; I10 Essential (primary) hypertension; M19.90 Unspecified osteoarthritis, unspecified site; R25.1 Tremor, unspecified; Z79.82 Long term (current) use of aspirin; Z79.899 Other long term (current) drug therapy
CPT/HCPCS: 45378; J2001; J2704

== ENCOUNTER → 2018-09-25 | Outpatient (CLI) | payer MEDICARE ==
--- NOTE | 2018-10-02 11:49 | MM ---
Reason for exam: screening (asymptomatic). Last mammogram was performed 5 years and 2 months ago. History: Patient is postmenopausal. Physical Findings: A clinical breast exam by your physician is recommended on an annual basis and results should be correlated with mammographic findings. MG Screening Mammo w CAD Bilateral CC and MLO view(s) were taken. Prior study comparison: July 11, 2013, mammogram, performed at [place]. April 19, 2010, mammogram, performed at [place]. The breast tissue is heterogeneously dense. This may lower the sensitivity of mammography. There is no discrete abnormality. No significant changes when compared with prior studies. ASSESSMENT: Negative, BI-RAD 1 RECOMMENDATION: Routine screening mammogram of both breasts in 1 year.
== END | disposition home or self-care (01) ==
LOC: RADMAMWWP 10:02
PROVIDERS: ATTEND Family Medicine
DX: Z12.31 Encounter for screening mammogram for malignant neoplasm of breast (principal)
CPT/HCPCS: 77067

== ENCOUNTER 2018-12-04 21:12 | Emergency (ER) | payer MEDICARE ==
--- NOTE | 2018-12-04 21:22 | ED ---
General Adult HPI - General Stated complaint: Fall Time Seen by Provider: 12/04/18 21:22 - History of Present Illness Initial comments: Janett is a pleasant 73-year-old female who is brought to the ED today for evaluation of possible head injury after fall. Patient reports that she was sitting on the toilet when she stood too fast got lightheaded falling forward and striking her head on the ground. Patient reports that this is happened to her in the past. She reports that she woke up immediately her had heard her fall and came to the bathroom to assist her up. He noticed a bruise over her forehead. Which time they decided to bring the patient to the hospital for evaluation. Patient denies any chest pain, palpitations or shortness of breath prior to the fall. She reports she just stood too quick and passed out. She has a history of this happening in the past. - Related Data Home Medications Medication Instructions Recorded Confirmed Omeprazole 40 mg PO DAILY 01/01/18 12/04/18 Pramipexole [Mirapex] 1 mg PO HS 01/01/18 12/04/18 Primidone [Mysoline] 50 mg PO BID 01/01/18 12/04/18 Propranolol [Inderal] 40 mg PO BID 01/01/18 12/04/18 Simvastatin [Zocor] 20 mg PO DAILY 01/01/18 12/04/18 Aspirin [Adult Low Dose Aspirin EC] 81 mg PO DAILY 03/22/18 12/04/18 Ibuprofen [Motrin] 600 mg PO Q8HR PRN 07/25/18 12/04/18 Losartan [Cozaar] 25 mg PO DAILY 07/25/18 12/04/18 Allergies Allergy/AdvReac Type Severity Reaction Status Date / Time No Known Allergies Allergy Verified 12/04/18 21:35 Review of Systems ROS Statement: Those systems with pertinent positive or pertinent negative responses have been documented in the HPI. ROS Other: All systems not noted in ROS Statement are negative. Past Medical History Past Medical History: GERD/Reflux, Hyperlipidemia, Hypertension, Osteoarthritis (OA) Additional Past Medical History / Comment(s): tremors in hand and heads, varicose veins rt leg, occasional dizzy spells and off balance "comes and goes" , seasonal allergies History of Any Multi-Drug Resistant Organisms: None Reported Past Surgical History: Appendectomy, Cholecystectomy, Hysterectomy Additional Past Surgical History / Comment(s): vein stripping lt leg. DIANA PROCEDURE 03/30/18. COLONOSCOPY Past Anesthesia/Blood Transfusion Reactions: No Reported Reaction Smoking Status: Never smoker - Past Family History Mother Family Medical History: Coronary Artery Disease (CAD), Dementia Brother(s) Family Medical History: Cancer, Congestive Heart Failure (CHF), Coronary Artery Disease (CAD) Additional Family Medical History / Comment(s): 1 brother of cancer, 1 of heart disease, 3 brothers agent orange 1 brother alzheimer Sister(s) Family Medical History: Cancer Additional Family Medical History / Comment(s): 2 sisters young of cancer General Exam - General Exam Comments Initial Comments: Physical Exam GENERAL: Patient is well-developed and well-nourished. Patient is nontoxic and well-hydrated and is in no distress. Resting tremor HENT: Normocephalic, contusion to right forehead TMs normal bilaterally No hamilton signs or raccoon eyes or other evidence of basilar skull fracture EYES: PERRL, EOMI PULMONARY: Unlabored respirations. No audible rales rhonchi or wheezing was noted. CARDIOVASCULAR: There is a regular rate and rhythm Warm and well perfused extremities ABDOMEN: Soft and nontender SKIN: Skin is clear with no lesions or rashes and otherwise unremarkable. : Deferred NEUROLOGIC: Patient is alert and oriented x3. Moving all extremities spontaneously Resting tremor MUSCULOSKELETAL: Normal extremities with adequate strength and full range of motion. No lower extremity swelling or edema. No calf tenderness. PSYCHIATRIC: Normal psychiatric evaluation. Limitations: no limitations Course Vital Signs 12/04/18 21:31 Temperature 98.0 F Pulse Rate 73 Respiratory 16 Rate Blood Pressure 127/68 O2 Sat by Pulse 95 Oximetry EKG Findings - EKG Comments: EKG Findings:: EKG obtained at 2242, rate of 70 rhythm is sinus there is a leftward axis, normal intervals, WI 174, QRS 104, QTC is 467. There are no acute ST elevations or depressions is no evidence of acute ischemia or infarction. Medical Decision Making - Medical Decision Making Patient was seen and evaluated history was obtained from patient and at bedside Patient with an apparent orthostatic syncopal episode which occurred after standing from the toilet Physical exam does reveal a contusion to the right forehead no additional signs of trauma Patient is not on any anticoagulant or antiplatelet medications Labs and imaging were ordered Labs reviewed reveal chronic hyponatremia I discussed this with the patient and who reports she's been told this for a number of years, this is attributed to her drinking excessive water. Imaging with no acute findings Patient eager for discharge home, patient has not provided a urinalysis however she denies any urinary symptoms and would prefer to be discharged rather than wait for results All questions pertaining care were answered return parameters were discussed, I discussed safe transitions from laying to sitting to standing to reduce lightheadedness or possibility of syncope. Patient expressed understanding of this. Return parameters were discussed patient was discharged home in stable condition. - Lab Data Result diagrams: 12/04/18 22:13 12/04/18 22:13 Lab Results 12/04/18 12/04/18 12/04/18 Range/Units 22:13 22:13 22:13 WBC 6.6 (3.8-10.6) k/uL RBC 3.46 L (3.80-5.40) m/uL Hgb 10.0 L (11.4-16.0) gm/dL Hct 30.2 L (34.0-46.0) % MCV 87.3 (80.0-100.0) fL MCH 28.8 (25.0-35.0) pg MCHC 33.0 (31.0-37.0) g/dL RDW 13.7 (11.5-15.5) % Plt Count 272 (150-450) k/uL Neutrophils % 77 % Lymphocytes % 15 % Monocytes % 5 % Eosinophils % 1 % Basophils % 0 % Neutrophils # 5.1 (1.3-7.7) k/uL Lymphocytes # 1.0 (1.0-4.8) k/uL Monocytes # 0.4 (0-1.0) k/uL Eosinophils # 0.1 (0-0.7) k/uL Basophils # 0.0 (0-0.2) k/uL PT (9.0-12.0) sec INR (<1.2) APTT (22.0-30.0) sec Sodium 131 L (137-145) mmol/L Potassium 4.7 (3.5-5.1) mmol/L Chloride 96 L (98-107) mmol/L Carbon Dioxide 27 (22-30) mmol/L Anion Gap 8 mmol/L BUN 19 H (7-17) mg/dL Creatinine 0.68 (0.52-1.04) mg/dL Est GFR (CKD-EPI)AfAm >90 (>60 ml/min/1.73 sqM) Est GFR (CKD-EPI)NonAf 87 (>60 ml/min/1.73 sqM) Glucose 102 H (74-99) mg/dL Calcium 8.8 (8.4-10.2) mg/dL Total Bilirubin 0.3 (0.2-1.3) mg/dL AST 27 (14-36) U/L ALT 35 (9-52) U/L Alkaline Phosphatase 81 (38-126) U/L Total Creatine Kinase 65 (30-135) U/L CK-MB (CK-2) 1.3 (0.0-2.4) ng/mL CK-MB (CK-2) Rel Index 2.0 Troponin I <0.012 (0.000-0.034) ng/mL Total Protein 6.6 (6.3-8.2) g/dL Albumin 3.9 (3.5-5.0) g/dL Blood Type Blood Type Recheck Antibody Screen Spec Expiration Date 12/04/18 12/04/18 Range/Units 22:13 22:13 WBC (3.8-10.6) k/uL RBC (3.80-5.40) m/uL Hgb (11.4-16.0) gm/dL Hct (34.0-46.0) % MCV (80.0-100.0) fL MCH (25.0-35.0) pg MCHC (31.0-37.0) g/dL RDW (11.5-15.5) % Plt Count (150-450) k/uL Neutrophils % % Lymphocytes % % Monocytes % % Eosinophils % % Basophils % % Neutrophils # (1.3-7.7) k/uL Lymphocytes # (1.0-4.8) k/uL Monocytes # (0-1.0) k/uL Eosinophils # (0-0.7) k/uL Basophils # (0-0.2) k/uL PT 9.6 (9.0-12.0) sec INR 0.9 (<1.2) APTT 21.5 L (22.0-30.0) sec Sodium (137-145) mmol/L Potassium (3.5-5.1) mmol/L Chloride (98-107) mmol/L Carbon Dioxide (22-30) mmol/L Anion Gap mmol/L BUN (7-17) mg/dL Creatinine (0.52-1.04) mg/dL Est GFR (CKD-EPI)AfAm (>60 ml/min/1.73 sqM) Est GFR (CKD-EPI)NonAf (>60 ml/min/1.73 sqM) Glucose (74-99) mg/dL Calcium (8.4-10.2) mg/dL Total Bilirubin (0.2-1.3) mg/dL AST (14-36) U/L ALT (9-52) U/L Alkaline Phosphatase (38-126) U/L Total Creatine Kinase (30-135) U/L CK-MB (CK-2) (0.0-2.4) ng/mL CK-MB (CK-2) Rel Index Troponin I (0.000-0.034) ng/mL Total Protein (6.3-8.2) g/dL Albumin (3.5-5.0) g/dL Blood Type A Positive Blood Type Recheck No Antibody Screen NEGATIVE Spec Expiration Date 12/07/2018 - 2312 Disposition Clinical Impression: Fall Disposition: HOME SELF-CARE Instructions (If sedation given, give patient instructions): Concussion (ED), Fall Prevention for Older Adults (ED) Is patient prescribed a controlled substance at d/c from ED?: No Referrals: Irina Jackson DO [Primary Care Provider] - 1-2 days Time of Disposition: 23:30
[2018-12-04] MEDS ORDERED: SODIUM CHLORIDE 0.9% 1,000 ML IV STA (21:45)
[2018-12-04 22:49] LABS: Basophils % (A) 0 %; Eosinophils # (A) 0.1 k/uL (0-0.7); Eosinophils % (A) 1 %; HCT 30.2 % (34.0-46.0); Lymphocytes % (A) 15 %; MCH 28.8 pg (25.0-35.0); MCV 87.3 fL (80.0-100.0); Mean Platelet Volume 7.3; Monocytes # (A) 0.4 k/uL (0-1.0); Monocytes % (A) 5 %; Neutrophils # (A) 5.1 k/uL (1.3-7.7); Neutrophils % (A) 77 %; Platelet Count 272 k/uL (150-450); RBC 3.46 m/uL (3.80-5.40); RDW 13.7 % (11.5-15.5); WBC 6.6 k/uL (3.8-10.6)
[2018-12-04 22:52] LABS: ALT 35 U/L (9-52); AST 27 U/L (14-36); Albumin 3.9 g/dL (3.5-5.0); Alkaline Phosphatase 81 U/L (38-126); Anion Gap 8 mmol/L; Blood Urea Nitrogen 19 mg/dL (7-17); Calcium 8.8 mg/dL (8.4-10.2); Carbon Dioxide 27 mmol/L (22-30); Chloride 96 mmol/L (98-107); Creatine Kinase 65 U/L (30-135); Glucose 102 mg/dL (74-99); Potassium 4.7 mmol/L (3.5-5.1); Sodium 131 mmol/L (137-145); Total Bilirubin 0.3 mg/dL (0.2-1.3); Total Protein 6.6 g/dL (6.3-8.2)
[2018-12-04 22:55] LABS: INR 0.9 (<1.2); Prothrombin Time 9.6 sec (9.0-12.0)
--- NOTE | 2018-12-04 22:59 | XR ---
EXAM: XR Chest, 2 Views CLINICAL HISTORY: ITS.REASON XR Reason: trauma TECHNIQUE: Frontal and lateral views of the chest. COMPARISON: No relevant prior studies available. FINDINGS: Lungs: Unremarkable. No consolidation. Pleural space: Unremarkable. No pneumothorax. Heart: Unremarkable. No cardiomegaly. Mediastinum: Unremarkable. Bones/joints: Unremarkable. IMPRESSION: No acute cardiopulmonary abnormality.
[2018-12-04 23:04] LABS: Creatine Kinase MB 1.3 ng/mL (0.0-2.4); Troponin I <0.012 ng/mL (0.000-0.034)
--- NOTE | 2018-12-04 23:06 | CT ---
EXAM: CT Head Without Intravenous Contrast CLINICAL HISTORY: ITS.REASON CT Reason: trauma TECHNIQUE: Axial computed tomography images of the head/brain without intravenous contrast. CTDI is 53 mGy and DLP is 1235 mGy-cm. This CT exam was performed using one or more of the following dose reduction techniques: automated exposure control, adjustment of the mA and/or kV according to patient size, and/or use of iterative reconstruction technique. COMPARISON: MRI dated 11/03/17. FINDINGS: Brain: There is age related cerebral atrophy. Chronic small vessel ischemic changes in the white matter. No hemorrhage. Ventricles: Unremarkable. No ventriculomegaly. Bones/joints: Unremarkable. No acute fracture. Soft tissues: Unremarkable. Vasculature: Tortuosity of the basilar artery. Sinuses: Unremarkable as visualized. No acute sinusitis. Mastoid air cells: Unremarkable as visualized. No mastoid effusion. IMPRESSION: No acute findings. Age-related cerebral atrophy and senescent white matter changes. EXAM: CT Cervical Spine Without Intravenous Contrast CLINICAL HISTORY: ITS.REASON CT Reason: trauma TECHNIQUE: Axial computed tomography images of the cervical spine without intravenous contrast. CTDI is 53 mGy and DLP is 1235 mGy-cm. This CT exam was performed using one or more of the following dose reduction techniques: automated exposure control, adjustment of the mA and/or kV according to patient size, and/or use of iterative reconstruction technique. COMPARISON: No relevant prior studies available. FINDINGS: Vertebrae: Moderate to severe intervertebral disc height loss, endplate osteophyte formation, and all vertebral joint hypertrophy at the C5-C6 and C6-C7 levels. There is associated multilevel posterior facet arthropathy. No acute fracture. Discs/spinal canal/neural foramina: No acute findings. No spinal canal stenosis. Soft tissues: Unremarkable. IMPRESSION: No acute findings. Moderate to severe degenerative disc disease at C5-C6 and C6-C7 levels.
[2018-12-04 23:14] LABS: Partial Thromboplastin Time 21.5 sec (22.0-30.0)
[2018-12-05] VITALS: BP 106/75; PULSE 71; RESP 17; TEMP 98.2
== END 2018-12-04 23:59 | disposition home or self-care (01) ==
LOC: EC 21:12
DX: Z04.3 Encounter for examination and observation following other accident (principal); S00.83XA Contusion of other part of head, initial encounter; R55 Syncope and collapse; E87.1 Hypo-osmolality and hyponatremia; K21.9 Gastro-esophageal reflux disease without esophagitis; E78.5 Hyperlipidemia, unspecified; I10 Essential (primary) hypertension; Z79.82 Long term (current) use of aspirin; Z79.899 Other long term (current) drug therapy; W18.12XA Fall from or off toilet with subsequent striking against object, initial encounter; Y92.002 Bathroom of unspecified non-institutional (private) residence as the place of occurrence of the external cause
CPT/HCPCS: 36415; 70450; 71046; 72125; 80053; 82550; 82553; 84484; 85025; 85610; 85730; 86850; 86900; 86901; 93005; 96360; 99285

== ENCOUNTER 2021-05-30 19:50 | Inpatient (IN) | payer MEDICARE ==
[2021-05-30] MEDS ORDERED: SODIUM CHLORIDE 0.9% 500 ML 500 ML IV STA (20:07)
--- NOTE | 2021-05-30 20:14 | ED ---
General Adult HPI - General Chief complaint: Syncope Stated complaint: near syncope Time Seen by Provider: 05/30/21 19:54 Source: EMS Mode of arrival: EMS Limitations: no limitations - History of Present Illness Initial comments: 76 year-old female patient presents to the emergency department via EMS today for evaluation after having a near syncopal episode at home. Family states that she was having a bowel movement. When she came out of the bathroom she became dizzy and weak and required assistance. Patient states she does not really recall the event, states that the last thing she remembers was going to the bathroom. Patient states she currently feels tired, denies any other symptoms. Reports a few episodes of diarrhea yesterday. States she did have a four hour car ride today. States her a week and a half ago. Patient denies any recent rash, fever, chills, cough, shortness of breath, chest pain, abdominal pain, nausea, vomiting, back pain, numbness, tingling, dizziness, hematuria, dysuria, urinary urgency, urinary frequency, headache, visual changes, or any other complaints. - Related Data Home Medications Medication Instructions Recorded Confirmed Pramipexole [Mirapex] 1 mg PO HS 01/01/18 05/30/21 Primidone [Mysoline] 50 mg PO HS 01/01/18 05/30/21 Propranolol [Inderal] 40 mg PO HS 01/01/18 05/30/21 Simvastatin [Zocor] 20 mg PO HS 01/01/18 05/30/21 Aspirin [Adult Low Dose Aspirin EC] 81 mg PO DAILY 03/22/18 05/30/21 Candesartan Cilexetil 8 mg PO DAILY 05/30/21 05/30/21 Ibuprofen [Motrin Ib] 200 mg PO Q8H PRN 05/30/21 05/30/21 Naproxen Sod/Diphenhydramine 1 tab PO HS PRN 05/30/21 05/30/21 [Aleve Pm Caplet] Naproxen Sodium [Aleve] 220 mg PO Q12HR PRN 05/30/21 05/30/21 Vitacraves Gummies 2 tab PO DAILY 05/30/21 05/30/21 Vitamin D Gummies (Unknown Dose) 2 tab PO DAILY 05/30/21 05/30/21 metFORMIN HCL 500 mg PO HS 05/30/21 05/30/21 Allergies Allergy/AdvReac Type Severity Reaction Status Date / Time No Known Allergies Allergy Verified 05/30/21 21:31 Review of Systems ROS Statement: Those systems with pertinent positive or pertinent negative responses have been documented in the HPI. ROS Other: All systems not noted in ROS Statement are negative. Past Medical History Past Medical History: GERD/Reflux, Hyperlipidemia, Hypertension, Osteoarthritis (OA) Additional Past Medical History / Comment(s): tremors in hand and heads, varicose veins rt leg, occasional dizzy spells and off balance "comes and goes", seasonal allergies History of Any Multi-Drug Resistant Organisms: None Reported Past Surgical History: Appendectomy, Cholecystectomy, Hysterectomy Additional Past Surgical History / Comment(s): vein stripping lt leg. DIANA PROCEDURE 03/30/18. COLONOSCOPY Past Anesthesia/Blood Transfusion Reactions: No Reported Reaction Past Psychological History: No Psychological Hx Reported Smoking Status: Never smoker Past Alcohol Use History: None Reported Past Drug Use History: None Reported - Past Family History Mother Family Medical History: Coronary Artery Disease (CAD), Dementia Brother(s) Family Medical History: Cancer, Congestive Heart Failure (CHF), Coronary Artery Disease (CAD) Additional Family Medical History / Comment(s): 1 brother of cancer, 1 of heart disease, 3 brothers agent orange 1 brother alzheimer Sister(s) Family Medical History: Cancer Additional Family Medical History / Comment(s): 2 sisters young of cancer General Exam Limitations: no limitations General appearance: alert, in no apparent distress, other (Physical well- developed, well-nourished, nontoxic-appearing adult female patient in no acute distress. Vital signs upon presentation temperature 97.5F, pulse 56, respirations 18, blood pressure 135/89, pulse ox 98% on room air.) Eye exam: Present: normal appearance, PERRL, EOMI. Absent: scleral icterus, conjunctival injection, nystagmus, periorbital swelling ENT exam: Present: normal exam, normal oropharynx, mucous membranes moist Respiratory exam: Present: normal lung sounds bilaterally. Absent: respiratory distress, wheezes, rales, rhonchi, stridor Cardiovascular Exam: Present: normal rhythm, bradycardia, normal heart sounds. Absent: systolic murmur, diastolic murmur, rubs, gallop, clicks GI/Abdominal exam: Present: soft, normal bowel sounds. Absent: distended, tenderness, guarding, rebound, rigid Neurological exam: Present: alert, oriented X3, CN II-XII intact Expanded Speech: Present: fluid speech Motor strength exam: RUE: 5, LUE: 5, RLE: 5, LLE: 5 Psychiatric exam: Present: normal affect Skin exam: Present: warm, dry, intact, normal color. Absent: rash Course Vital Signs 05/30/21 05/30/21 05/30/21 19:55 20:14 21:16 Temperature 97.5 F L Pulse Rate 56 L 53 L Pulse Rate [ 61 Sitting Adjunct Art History Instructor] Pulse Rate [ 56 L Supine Adjunct Art History Instructor] Respiratory 18 18 Rate Blood Pressure 135/89 131/98 Blood Pressure 126/90 [Right Arm Sitting] Blood Pressure 107/83 [Right Arm Standing] Blood Pressure 140/91 [Right Arm Supine] O2 Sat by Pulse 98 95 Oximetry EKG Findings - EKG Comments: EKG Findings:: EKG obtained in 1958 shows sinus bradycardia at ventricular rate of 57, [place] interval 200, QRS duration 98, QT 472, QTc 459. No evidence of ST elevation or depression Medical Decision Making - Medical Decision Making 76 old female patient presented to the emergency department via EMS for evaluation of near-syncope. Patient got up from the toilet very dizzy and weak and had to be assisted to the couch. Patient does not remember the episode. Upon arrival patient is resting comfortably reports being tired only. She is neurologically intact with no focal deficits. EKG was unremarkable. Labs reviewed and did reveal decreased sodium at 123. She had evidence for nitrite positive urinary tract infection. Chest xray negative. Did discuss findings and results with patient and family. We'll admit to the hospital for further evaluation and monitoring. Dr. Cosby requests neurology consultation and CT brain without contrast. She'll be treated with Rocephin for UTI pending culture. Case discussed with my attending Dr. Rucker. - Lab Data Result diagrams: 05/30/21 21:12 05/30/21 20:09 Lab Results 05/30/21 05/30/21 05/30/21 Range/Units 20:09 20:09 20:09 WBC (3.8-10.6) k/uL RBC (3.80-5.40) m/uL Hgb (11.4-16.0) gm/dL Hct (34.0-46.0) % MCV (80.0-100.0) fL MCH (25.0-35.0) pg MCHC (31.0-37.0) g/dL RDW (11.5-15.5) % Plt Count (150-450) k/uL MPV Neutrophils % % Lymphocytes % % Monocytes % % Eosinophils % % Basophils % % Neutrophils # (1.3-7.7) k/uL Lymphocytes # (1.0-4.8) k/uL Monocytes # (0-1.0) k/uL Eosinophils # (0-0.7) k/uL Basophils # (0-0.2) k/uL PT (9.0-12.0) sec INR (<1.2) APTT (22.0-30.0) sec Sodium 123 L (137-145) mmol/L Potassium 4.3 (3.5-5.1) mmol/L Chloride 94 L (98-107) mmol/L Carbon Dioxide 20 L (22-30) mmol/L Anion Gap 9 mmol/L BUN 14 (7-17) mg/dL Creatinine 0.60 (0.52-1.04) mg/dL Est GFR (CKD-EPI)AfAm >90 (>60 ml/min/1.73 sqM) Est GFR (CKD-EPI)NonAf 89 (>60 ml/min/1.73 sqM) Glucose 95 (74-99) mg/dL Calcium 8.6 (8.4-10.2) mg/dL Magnesium 1.8 (1.6-2.3) mg/dL Total Bilirubin 0.4 (0.2-1.3) mg/dL AST 33 (14-36) U/L ALT 21 (4-34) U/L Alkaline Phosphatase 56 (38-126) U/L Troponin I 0.016 (0.000-0.034) ng/mL Total Protein 6.4 (6.3-8.2) g/dL Albumin 3.9 (3.5-5.0) g/dL Urine Color Yellow Urine Appearance Clear (Clear) Urine pH 6.5 (5.0-8.0) Ur Specific [place] 1.014 (1.001-1.035) Urine Protein Trace H (Negative) Urine Glucose (UA) Negative (Negative) Urine Ketones Negative (Negative) Urine Blood Negative (Negative) Urine Nitrite Positive H (Negative) Urine Bilirubin Negative (Negative) Urine Urobilinogen <2.0 (<2.0) mg/dL Ur Leukocyte Esterase Large H (Negative) Urine RBC 2 (0-5) /hpf Urine WBC 47 H (0-5) /hpf Ur Squamous Epith Cells <1 (0-4) /hpf Amorphous Sediment Rare H (None) /hpf Urine Bacteria Many H (None) /hpf Hyaline Casts 7 H (0-2) /lpf Urine Mucus Rare H (None) /hpf 05/30/21 05/30/21 Range/Units 21:12 21:12 WBC 6.2 (3.8-10.6) k/uL RBC 3.15 L (3.80-5.40) m/uL Hgb 9.8 L (11.4-16.0) gm/dL Hct 27.8 L (34.0-46.0) % MCV 88.2 (80.0-100.0) fL MCH 31.0 (25.0-35.0) pg MCHC 35.2 (31.0-37.0) g/dL RDW 13.0 (11.5-15.5) % Plt Count 264 (150-450) k/uL MPV 8.7 Neutrophils % 65 % Lymphocytes % 23 % Monocytes % 8 % Eosinophils % 2 % Basophils % 0 % Neutrophils # 4.0 (1.3-7.7) k/uL Lymphocytes # 1.5 (1.0-4.8) k/uL Monocytes # 0.5 (0-1.0) k/uL Eosinophils # 0.1 (0-0.7) k/uL Basophils # 0.0 (0-0.2) k/uL PT 11.0 (9.0-12.0) sec INR 1.0 (<1.2) APTT 19.6 L (22.0-30.0) sec Sodium (137-145) mmol/L Potassium (3.5-5.1) mmol/L Chloride (98-107) mmol/L Carbon Dioxide (22-30) mmol/L Anion Gap mmol/L BUN (7-17) mg/dL Creatinine (0.52-1.04) mg/dL Est GFR (CKD-EPI)AfAm (>60 ml/min/1.73 sqM) Est GFR (CKD-EPI)NonAf (>60 ml/min/1.73 sqM) Glucose (74-99) mg/dL Calcium (8.4-10.2) mg/dL Magnesium (1.6-2.3) mg/dL Total Bilirubin (0.2-1.3) mg/dL AST (14-36) U/L ALT (4-34) U/L Alkaline Phosphatase (38-126) U/L Troponin I (0.000-0.034) ng/mL Total Protein (6.3-8.2) g/dL Albumin (3.5-5.0) g/dL Urine Color Urine Appearance (Clear) Urine pH (5.0-8.0) Ur Specific [place] (1.001-1.035) Urine Protein (Negative) Urine Glucose (UA) (Negative) Urine Ketones (Negative) Urine Blood (Negative) Urine Nitrite (Negative) Urine Bilirubin (Negative) Urine Urobilinogen (<2.0) mg/dL Ur Leukocyte Esterase (Negative) Urine RBC (0-5) /hpf Urine WBC (0-5) /hpf Ur Squamous Epith Cells (0-4) /hpf Amorphous Sediment (None) /hpf Urine Bacteria (None) /hpf Hyaline Casts (0-2) /lpf Urine Mucus (None) /hpf - Radiology Data Radiology results: report reviewed, image reviewed Two-view x-ray of the chest is obtained. Report reviewed in its entirety. Impression by Dr. Goel shows no acute cardio pulmonary process. Disposition Clinical Impression: Near syncope, Hyponatremia, UTI (urinary tract infection) Disposition: ADMITTED IP TO THIS [facility] Condition: Serious Referrals: Irina Jackson DO [Primary Care Provider] - 1-2 days Decision to Admit Reason: Admit from EC Decision Date: 05/30/21 Decision Time: 21:52
[2021-05-30 20:44] LABS: ALT 21 U/L (4-34); AST 33 U/L (14-36); African American GFR (CKD) >90 (>60 ml/min/1.73 sqM); Albumin 3.9 g/dL (3.5-5.0); Alkaline Phosphatase 56 U/L (38-126); Anion Gap 9 mmol/L; Blood Urea Nitrogen 14 mg/dL (7-17); Calcium 8.6 mg/dL (8.4-10.2); Carbon Dioxide 20 mmol/L (22-30); Chloride 94 mmol/L (98-107); Glucose 95 mg/dL (74-99); Magnesium 1.8 mg/dL (1.6-2.3); Non-African American GFR(CKD) 89 (>60 ml/min/1.73 sqM); Sodium 123 mmol/L (137-145); Total Bilirubin 0.4 mg/dL (0.2-1.3); Total Protein 6.4 g/dL (6.3-8.2)
[2021-05-30 20:45] LABS: Potassium 4.3 mmol/L (3.5-5.1)
--- NOTE | 2021-05-30 20:47 | XR ---
EXAMINATION TYPE: XR chest 2V DATE OF EXAM: 05/30/20212033 COMPARISON: Chest radiograph 12/04/2018 HISTORY: Syncope, abdominal pain TECHNIQUE: Frontal and lateral views of the chest are obtained. FINDINGS: There is no focal air space opacity, pleural effusion, or pneumothorax seen. The cardiac silhouette size is within normal limits. The osseous structures are intact. Multilevel degenerative changes of the visualized thoracolumbar spine. Gaseous distention of the large bowel in the left upp er abdomen. IMPRESSION: No acute cardiopulmonary process.
[2021-05-30 21:18] LABS: Basophils % (A) 0 %; Eosinophils # (A) 0.1 k/uL (0-0.7); Eosinophils % (A) 2 %; HCT 27.8 % (34.0-46.0); HGB 9.8 gm/dL (11.4-16.0); Lymphocytes # (A) 1.5 k/uL (1.0-4.8); Lymphocytes % (A) 23 %; MCHC 35.2 g/dL (31.0-37.0); MCV 88.2 fL (80.0-100.0); Mean Platelet Volume 8.7; Monocytes # (A) 0.5 k/uL (0-1.0); Monocytes % (A) 8 %; Neutrophils % (A) 65 %; Platelet Count 264 k/uL (150-450); RBC 3.15 m/uL (3.80-5.40); WBC 6.2 k/uL (3.8-10.6)
[2021-05-30 21:22] LABS: Amorphous Sediment,Urine Rare /hpf; Appearance,Urine Clear (Clear); Bacteria,Urine Many /hpf; Bilirubin,Urine Negative (Negative); Blood,Urine Negative (Negative); Color,Urine Yellow; Glucose,Urine (UA) Negative (Negative); Hyaline Casts,Urine 7 /lpf (0-2); Ketones,Urine Negative (Negative); Leukocyte Esterase,Urine Large (Negative); Mucus,Urine Rare /hpf; Nitrite,Urine Positive (Negative); PH, Urine 6.5 (5.0-8.0); Protein,Urine Trace (Negative); RBC,Urine 2 /hpf (0-5); Specific Gravity,Urine 1.014 (1.001-1.035); Squamous Epithelial Cell,Urine <1 /hpf (0-4); Urobilinogen,Urine <2.0 mg/dL (<2.0); WBC,Urine 47 /hpf (0-5)
[2021-05-30 21:39] LABS: Partial Thromboplastin Time 19.6 sec (22.0-30.0)
[2021-05-30] MEDS ORDERED: cefTRIAXone IN SWFI 1,000 MG/10 ML SYRINGE IVP STA (21:49)
[2021-05-30] MEDS ORDERED: NALOXONE 0.4 MG/ML 1 ML VIAL IV PRN (21:50)
[2021-05-30] MEDS: SODIUM CHLORIDE 0.9% 1,000 ML IV SCH (22:06)
--- NOTE | 2021-05-30 22:14 | CT ---
EXAMINATION TYPE: CT brain wo con DATE OF EXAM: 05/30/2021 COMPARISON: 12/04/2018 HISTORY: Syncope. CT DLP: 1099.4 mGycm Automated exposure control for dose reduction was used. There is mild cerebral atrophy. There is no mass effect nor midline shift. There is no sign of intrac ranial hemorrhage. Calvarium is intact. Skull base is intact. IMPRESSION: Mild cerebral atrophy. No acute intracranial abnormality.
[2021-05-30] MEDS ORDERED: ACETAMINOPHEN TAB 325 MG TAB PO PRN (23:25)
[2021-05-30] MEDS ORDERED: ONDANSETRON 4 MG/2 ML VIAL IVP PRN (23:25)
[2021-05-30] MEDS ORDERED: ALPRAZolam 0.5 MG TAB PO PRN (23:26)
[2021-05-31 06:21] LABS: Glucose,Whole Blood 154 mg/dL (75-99)
[2021-05-31] MEDS: INSULIN ASPART (NovoLOG) 100 UNIT/ML VIAL SQ SCH ×4 (06:25→21:20)
[2021-05-31 07:58] LABS: Basophils % (A) 0 %; Eosinophils % (A) 1 %; HCT 28.9 % (34.0-46.0); HGB 10.1 gm/dL (11.4-16.0); Lymphocytes # (A) 1.5 k/uL (1.0-4.8); Lymphocytes % (A) 27 %; MCH 31.3 pg (25.0-35.0); MCV 89.4 fL (80.0-100.0); Mean Platelet Volume 7.4; Monocytes # (A) 0.3 k/uL (0-1.0); Monocytes % (A) 5 %; Neutrophils # (A) 3.8 k/uL (1.3-7.7); Neutrophils % (A) 66 %; Platelet Count 299 k/uL (150-450); RBC 3.23 m/uL (3.80-5.40); WBC 5.8 k/uL (3.8-10.6)
[2021-05-31 08:13] LABS: African American GFR (CKD) >90 (>60 ml/min/1.73 sqM); Anion Gap 7 mmol/L; Blood Urea Nitrogen 10 mg/dL (7-17); Calcium 8.9 mg/dL (8.4-10.2); Carbon Dioxide 24 mmol/L (22-30); Chloride 99 mmol/L (98-107); Glucose 95 mg/dL (74-99); Non-African American GFR(CKD) >90 (>60 ml/min/1.73 sqM); Potassium 3.8 mmol/L (3.5-5.1); Sodium 130 mmol/L (137-145)
[2021-05-31] MEDS ORDERED: LOSARTAN 50 MG TAB PO SCH (09:00)
[2021-05-31] MEDS: ASPIRIN 81 MG PO SCH (09:02)
[2021-05-31 11:58] LABS: Glucose,Whole Blood 85 mg/dL (75-99)
--- NOTE | 2021-05-31 13:30 | P.HPIM ---
History of Present Illness 76-year-old pleasant female came in with lightheadedness after having a bowel movement and after she came out of the bathroom she did actually pass out patient denied any seizure-like activity, postictal confusion or bowel or bladder incontinence. Patient doesn't have any fever chills patient denied any dysuria. But did have increased urinary frequency with urinalysis showing large leukocyte esterase positive nitrate and increased white blood cell count in the urine. Because of which patient was started on IV antibiotics and urine cultures were ordered. Patient will have a few chills or leukocytosis. Patient also found to have hyponatremia although patient has diarrhea once in 2 days patient denied any large watery bowel movements. Patient's sodium did improve with IV fluids since yesterday to today from 123 to 1:30 cutting down the rate of IV fluids to 75 mL per hour. REVIEW OF SYSTEMS: CONSTITUTIONAL: No fever, no malaise, no fatigue. HEENT: No recent visual problems or hearing problems. Denied any sore throat. CARDIOVASCULAR: No chest pain, orthopnea, PND, no palpitations. PULMONARY: No shortness of breath, no cough, no hemoptysis. GASTROINTESTINAL no nausea, no vomiting, no abdominal pain. NEUROLOGICAL: No headaches, no weakness, no numbness. HEMATOLOGICAL: Denies any bleeding or petechiae. GENITOURINARY: Denies any burning micturition. MUSCULOSKELETAL/RHEUMATOLOGICAL: Denies any joint pain, swelling, or any muscle pain. ENDOCRINE: Denies any polyuria or polydipsia. The rest of the 14-point review of systems is negative. PHYSICAL EXAMINATION: GENERAL: The patient is alert and oriented x3, not in any acute distress. Well developed, well nourished. Patient has tremor HEENT: Pupils are round and equally reacting to light. EOMI. No scleral icterus. No conjunctival pallor. Normocephalic, atraumatic. No pharyngeal erythema. No thyromegaly. CARDIOVASCULAR: S1 and S2 present. No murmurs, rubs, or gallops. PULMONARY: Chest is clear to auscultation, no wheezing or crackles. ABDOMEN: Soft, nontender, nondistended, normoactive bowel sounds. No palpable organomegaly. MUSCULOSKELETAL: No joint swelling or deformity. EXTREMITIES: No cyanosis, clubbing, or pedal edema. NEUROLOGICAL: Gross neurological examination did not reveal any focal deficits. SKIN: No rashes. Assessment and plan -Syncope: Multifactorial, secondary to dehydration vasovagal event, with contribution from possible urinary tract infection. Patient will continue on IV fluids and IV antibiotics. Echocardiogram will be obtained to rule out any valvular abnormalities specifically aortic stenosis. Patient will be continued on secured entrance monitor EKG did not show any significant abnormality that that can explain her syncope. -Tremor possibility of Parkinson's patient is already on antiparkinsonian medications follows neurology as an outpatient -Generalized deconditioning physical therapy and occupational therapy evaluation -Type 2 diabetes mellitus -Gastroesophageal reflux disease -Hypertension -Hypovolemic hyponatremia from dehydration improving cut down the IV fluids to 75 mL/h repeat basic metabolic profile tomorrow. DVT prophylaxis: Lovenox Past Medical History Past Medical History: Diabetes Mellitus, GERD/Reflux, Hyperlipidemia, Hypertension, Osteoarthritis (OA) Additional Past Medical History / Comment(s): tremors in hand and heads, varicose veins rt leg, occasional dizzy spells and off balance "comes and goes", seasonal allergies History of Any Multi-Drug Resistant Organisms: None Reported Past Surgical History: Appendectomy, Cholecystectomy, Hysterectomy Additional Past Surgical History / Comment(s): vein stripping lt leg. DIANA P ROCEDURE 03/30/18. COLONOSCOPY. hernia repair Past Anesthesia/Blood Transfusion Reactions: No Reported Reaction Past Psychological History: No Psychological Hx Reported Smoking Status: Never smoker Past Alcohol Use History: None Reported Past Drug Use History: None Reported - Past Family History Mother Family Medical History: Coronary Artery Disease (CAD), Dementia Brother(s) Family Medical History: Cancer, Congestive Heart Failure (CHF), Coronary Artery Disease (CAD) Additional Family Medical History / Comment(s): 1 brother of cancer, 1 of heart disease, 3 brothers agent orange 1 brother alzheimer Sister(s) Family Medical History: Cancer Additional Family Medical History / Comment(s): 2 sisters young of cancer Medications and Allergies Home Medications Medication Instructions Recorded Confirmed Type Pramipexole [Mirapex] 1 mg PO HS 01/01/18 05/30/21 History Primidone [Mysoline] 50 mg PO HS 01/01/18 05/30/21 History Propranolol [Inderal] 40 mg PO HS 01/01/18 05/30/21 History Simvastatin [Zocor] 20 mg PO HS 01/01/18 05/30/21 History Aspirin [Adult Low Dose Aspirin EC] 81 mg PO DAILY 03/22/18 05/30/21 History Candesartan Cilexetil 8 mg PO DAILY 05/30/21 05/30/21 History Ibuprofen [Motrin Ib] 200 mg PO Q8H PRN 05/30/21 05/30/21 History Naproxen Sod/Diphenhydramine 1 tab PO HS PRN 05/30/21 05/30/21 History [Aleve Pm Caplet] Naproxen Sodium [Aleve] 220 mg PO Q12HR PRN 05/30/21 05/30/21 History Vitacraves Gummies 2 tab PO DAILY 05/30/21 05/30/21 History Vitamin D Gummies (Unknown Dose) 2 tab PO DAILY 05/30/21 05/30/21 History metFORMIN HCL 500 mg PO HS 05/30/21 05/30/21 History Allergies Allergy/AdvReac Type Severity Reaction Status Date / Time bee venom protein (honey bee) Allergy Swelling Verified 05/30/21 23:15 cat dander Allergy Rash/Hives Verified 05/30/21 23:15 Physical Exam Vitals: Vital Signs Temp Pulse Pulse Pulse Pulse Resp BP 05/31/21 08:00 98.3 F 71 18 05/31/21 07:51 05/31/21 04:00 59 L 18 05/31/21 00:00 62 18 05/30/21 22:14 98.2 F 62 62 18 05/30/21 22:08 98.7 F 55 L 22 150/98 05/30/21 21:16 53 L 18 131/98 05/30/21 20:14 61 56 L 05/30/21 19:55 97.5 F L 56 L 18 135/89 BP BP BP Pulse Ox 05/31/21 08:00 140/80 98 05/31/21 07:51 95 05/31/21 04:00 129/72 91 L 05/31/21 00:00 122/68 96 05/30/21 22:14 122/68 96 05/30/21 22:08 97 05/30/21 21:16 95 05/30/21 20:14 126/90 107/83 140/91 05/30/21 19:55 98 Intake and Output 0805/31/21 05/31/21 22:59 06:59 14:59 Intake Total 480 450 240 Balance 480 450 240 Intake: Oral 480 450 240 Other: Voiding Method Bedside Commode Bedside Commode # Voids 1 1 1 # Bowel Movements 1 Weight 63.503 kg 51 kg Results CBC & Chem 7: 05/31/21 07:13 05/31/21 07:13 Labs: Abnormal Lab Results - Last 24 Hours (Table) 05/30/21 05/30/21 05/30/21 Range/Units 20:09 20:09 21:12 RBC 3.15 L (3.80-5.40) m/uL Hgb 9.8 L (11.4-16.0) gm/dL Hct 27.8 L (34.0-46.0) % APTT (22.0-30.0) sec Sodium 123 L (137-145) mmol/L Chloride 94 L (98-107) mmol/L Carbon Dioxide 20 L (22-30) mmol/L POC Glucose (mg/dL) (75-99) mg/dL Urine Protein Trace H (Negative) Urine Nitrite Positive H (Negative) Ur Leukocyte Esterase Large H (Negative) Urine WBC 47 H (0-5) /hpf Amorphous Sediment Rare H (None) /hpf Urine Bacteria Many H (None) /hpf Hyaline Casts 7 H (0-2) /lpf Urine Mucus Rare H (None) /hpf 05/30/21 05/31/21 05/31/21 Range/Units 21:12 06:16 07:13 RBC 3.23 L (3.80-5.40) m/uL Hgb 10.1 L (11.4-16.0) gm/dL Hct 28.9 L (34.0-46.0) % APTT 19.6 L (22.0-30.0) sec Sodium (137-145) mmol/L Chloride (98-107) mmol/L Carbon Dioxide (22-30) mmol/L POC Glucose (mg/dL) 154 H (75-99) mg/dL Urine Protein (Negative) Urine Nitrite (Negative) Ur Leukocyte Esterase (Negative) Urine WBC (0-5) /hpf Amorphous Sediment (None) /hpf Urine Bacteria (None) /hpf Hyaline Casts (0-2) /lpf Urine Mucus (None) /hpf 05/31/21 Range/Units 07:13 RBC (3.80-5.40) m/uL Hgb (11.4-16.0) gm/dL Hct (34.0-46.0) % APTT (22.0-30.0) sec Sodium 130 L (137-145) mmol/L Chloride (98-107) mmol/L Carbon Dioxide (22-30) mmol/L POC Glucose (mg/dL) (75-99) mg/dL Urine Protein (Negative) Urine Nitrite (Negative) Ur Leukocyte Esterase (Negative) Urine WBC (0-5) /hpf Amorphous Sediment (None) /hpf Urine Bacteria (None) /hpf Hyaline Casts (0-2) /lpf Urine Mucus (None) /hpf Microbiology - Last 24 Hours (Table) 05/30/21 20:09 Urine Culture - Preliminary Urine,Catheterized
[2021-05-31] MEDS: SODIUM CHLORIDE 0.9% 1,000 ML IV SCH (16:46)
[2021-05-31 16:48] LABS: Glucose,Whole Blood 93 mg/dL (75-99)
[2021-05-31 20:04] LABS: Glucose,Whole Blood 122 mg/dL (75-99)
[2021-05-31] MEDS ORDERED: PRIMIDONE 50 MG TAB PO SCH (21:00)
[2021-05-31] MEDS ORDERED: PROPRANOLOL 40 MG TAB PO SCH (21:00)
[2021-05-31] MEDS ORDERED: ATORVASTATIN 10 MG TAB PO SCH (21:00)
[2021-05-31] MEDS ORDERED: PRAMIPEXOLE 1 MG TAB PO SCH (21:00)
[2021-05-31] MEDS ORDERED: metFORMIN 500 MG TAB PO SCH (21:00)
[2021-06-01 05:57] LABS: Glucose,Whole Blood 99 mg/dL (75-99)
[2021-06-01] MEDS: INSULIN ASPART (NovoLOG) 100 UNIT/ML VIAL SQ SCH (06:08)
[2021-06-01] MEDS ORDERED: ENOXAPARIN 30 MG/0.3 ML SYRINGE SQ SCH (09:00)
[2021-06-01] MEDS: ASPIRIN 81 MG PO SCH (09:52)
[2021-06-01 10:10] VITALS: PULSE 60; RESP 17; TEMP 98.1
[2021-06-01 11:05] VITALS: BP 138/81
--- NOTE | 2021-06-01 11:39 | ECHOF ---
Referral Reason:Syncope MEASUREMENTS -------- HEIGHT: 157.5 cm WEIGHT: 50.8 kg BP: 140/80 RVIDd: 3.4 cm (< 3.3) IVSd: 1.3 cm (0.6 - 1.1) LVIDd: 4.4 cm (3.9 - 5.3) LVPWd: 1.3 cm (0.6 - 1.1) IVSs: 1.8 cm LVIDs: 2.9 cm LVPWs: 1.6 cm LA Diam: 3.7 cm (2.7 - 3.8) LAESV Index (A-L): 34.36 ml/m Ao Diam: 3.6 cm (2.0 - 3.7) AV Cusp: 1.8 cm (1.5 - 2.6) MV EXCURSION: 14.577 mm (> 18.000) MV EF SLOPE: 32 mm/s (70 - 150) EPSS: 1.1 cm MV E Howie: 0.94 m/s MV DecT: 255 ms MV A Howie: 0.97 m/s MV E/A Ratio: 0.97 RAP: 5.00 mmHg RVSP: 20.73 mmHg FINDINGS -------- Sinus rhythm. This was a technically adequate study. There is mild concentric left ventricular hypertrophy. Overall left ventricular systolic function i s normal with, an EF between 55 - 60 %. The right ventricle is mildly enlarged. The left atrium is normal in size. The right atrial size is normal. There is mild aortic valve sclerosis. The mitral valve is normal. There is trace to mild mitral regurgitation. The tricuspid valve appears structurally normal. Mild tricuspid regurgitation present. Right vent ricular systolic pressure is normal at < 35 mmHg. The pulmonic valve was not well visualized. The aortic root size is normal. Ascending AO 40 mm IVC Not well visulized. There is no pericardial effusion. CONCLUSIONS -------- 1. There is mild concentric left ventricular hypertrophy. 2. Overall left ventricular systolic function is normal with, an EF between 55 - 60 %. 3. The right ventricle is mildly enlarged. 4. There is mild aortic valve sclerosis. 5. There is trace to mild mitral regurgitation. 6. Mild tricuspid regurgitation present. 7. Ascending AO 40 mm 8. There is no pericardial effusion. WRAP YARN SORTER: Vaishnavi Tomlinson [facility]
[2021-06-01 12:06] LABS: Glucose,Whole Blood 93 mg/dL (75-99)
[2021-06-01 12:09] LABS: Basophils % (A) 0 %; Eosinophils # (A) 0.1 k/uL (0-0.7); Eosinophils % (A) 1 %; HCT 29.2 % (34.0-46.0); Lymphocytes # (A) 1.6 k/uL (1.0-4.8); Lymphocytes % (A) 29 %; MCH 31.3 pg (25.0-35.0); MCHC 34.4 g/dL (31.0-37.0); MCV 90.9 fL (80.0-100.0); Mean Platelet Volume 7.9; Monocytes # (A) 0.3 k/uL (0-1.0); Monocytes % (A) 6 %; Neutrophils # (A) 3.3 k/uL (1.3-7.7); Neutrophils % (A) 62 %; Platelet Count 294 k/uL (150-450); RBC 3.21 m/uL (3.80-5.40); RDW 13.3 % (11.5-15.5); WBC 5.3 k/uL (3.8-10.6)
[2021-06-01] MEDS ORDERED: SODIUM CHLORIDE TAB 1 GM TAB PO STA (12:11)
[2021-06-01 12:24] LABS: African American GFR (CKD) >90 (>60 ml/min/1.73 sqM); Anion Gap 8 mmol/L; Blood Urea Nitrogen 10 mg/dL (7-17); Calcium 8.7 mg/dL (8.4-10.2); Carbon Dioxide 24 mmol/L (22-30); Chloride 97 mmol/L (98-107); Glucose 93 mg/dL (74-99); Non-African American GFR(CKD) >90 (>60 ml/min/1.73 sqM); Potassium 4.4 mmol/L (3.5-5.1); Sodium 129 mmol/L (137-145)
[2021-06-01 13:08] VITALS: BMI 20.5
--- NOTE | 2021-06-02 16:59 | P.DS ---
Providers Date of admission: 05/30/21 21:45 Expected date of discharge: 06/01/21 Attending physician: Jama Melgar MD Primary care physician: Irina Jackson Hospital Course: Final Diagnoses: Near-syncope, secondary to suspected hypotension related to ANS in a patient with Parkinson's syndrome. We will discuss in clinic addition of Sinemet. Possible Acute UTI, culture pending the final results to be faxed to PCP's office. Tremors, secondary to Parkinson's Hypovolemic hyponatremia secondary to dehydration, 123 on admission, currently up to 129. Grieving, recently Hypertension Gastroesophageal reflux disease Diabetes mellitus2, hemoglobin A1c 6 Hospital course: This is a pleasant 76-year-old female with history of Parkinson's disease currently on Mysoline, has not followed with neurology in over 2 years, presented to the hospital with complaint of near syncope. Patient reported she just returned from a long drive from [facility] approximately 4-1/2 hours, it was towards the end of the day when the near-syncopal event occurred. Patient reports she has not been feeling as steady, muscle tone decreased. Has also been under significant stress, actively grieving, as she recently lost her . Received gentle IV fluid hydration. No significant orthostatic hypotension. Echo reported normal LV function, EF 55-60%, ascending AO 40mm. chest x-ray reported no acute cardiopulmonary process. Brain CT brain no acute intracranial abnormality, mild cerebral atrophy. Significant clinical improvement. Patient will be discharged today with daughter,PAOLA in a stable condition with guarded prognosis. Final urine culture pending, results to be faxed to PCPs office. The impression and plan of care has been dictated as directed. : I performed a history and examination of this patient, discussed the same with the dictator. I agree with the dictator's note ,documented as a scribe. Any additional findings or plans will be noted. Patient Condition at Discharge: Stable Plan - Discharge Summary Discharge Rx Participant: Yes New Discharge Prescriptions: No Action Propranolol [Inderal] 40 mg PO HS Primidone [Mysoline] 50 mg PO HS Pramipexole [Mirapex] 1 mg PO HS Simvastatin [Zocor] 20 mg PO HS Aspirin [Adult Low Dose Aspirin EC] 81 mg PO DAILY Vitacraves Gummies 2 tab PO DAILY metFORMIN HCL 500 mg PO HS Naproxen Sodium [Aleve] 220 mg PO Q12HR PRN PRN Reason: Pain Naproxen Sod/Diphenhydramine [Aleve Pm Caplet] 1 tab PO HS PRN PRN Reason: PAIN/SLEEP Ibuprofen [Motrin Ib] 200 mg PO Q8H PRN PRN Reason: Pain Candesartan Cilexetil 8 mg PO DAILY Vitamin D Gummies (Unknown Dose) 2 tab PO DAILY Discharge Medication List Pramipexole [Mirapex] 1 mg PO HS 01/01/18 [History] Primidone [Mysoline] 50 mg PO HS 01/01/18 [History] Propranolol [Inderal] 40 mg PO HS 01/01/18 [History] Simvastatin [Zocor] 20 mg PO HS 01/01/18 [History] Aspirin [Adult Low Dose Aspirin EC] 81 mg PO DAILY 03/22/18 [History] Candesartan Cilexetil 8 mg PO DAILY 05/30/21 [History] Ibuprofen [Motrin Ib] 200 mg PO Q8H PRN 05/30/21 [History] Naproxen Sod/Diphenhydramine [Aleve Pm Caplet] 1 tab PO HS PRN 05/30/21 [History] Naproxen Sodium [Aleve] 220 mg PO Q12HR PRN 05/30/21 [History] Vitacraves Gummies 2 tab PO DAILY 05/30/21 [History] Vitamin D Gummies (Unknown Dose) 2 tab PO DAILY 05/30/21 [History] metFORMIN HCL 500 mg PO HS 05/30/21 [History] Follow up Appointment(s)/Referral(s): [facility], [NON-STAFF] - Irina Jackson DO [Primary Care Provider] - 1 Week (June 03 1:30) Ambulatory/Diagnostic Orders: Complete Blood Count w/diff [LAB.AMB] Time Frame: 3 Days, Location: None Selected Patient Instructions/Handouts: Hyponatremia (DC), Syncope (GEN) Activity/Diet/Wound Care/Special Instructions: consistent carbohydrate diet activity as tolerated; get up slowly from a sitting position Discharge Disposition: HOME SELF-CARE
== END 2021-06-01 13:47 | disposition home or self-care (01) | DRG 315 ==
LOC: EC 19:50 → 3SCARD 21:45
PROVIDERS: ADMIT Family Medicine; ATTEND Family Medicine
DX: I95.89 Other hypotension (principal); E87.1 Hypo-osmolality and hyponatremia; N39.0 Urinary tract infection, site not specified; E11.9 Type 2 diabetes mellitus without complications; E78.5 Hyperlipidemia, unspecified; E86.0 Dehydration; E86.1 Hypovolemia; G20 Parkinson's disease; I10 Essential (primary) hypertension; K21.9 Gastro-esophageal reflux disease without esophagitis; M19.90 Unspecified osteoarthritis, unspecified site; Z79.82 Long term (current) use of aspirin; Z79.84 Long term (current) use of oral hypoglycemic drugs; Z80.9 Family history of malignant neoplasm, unspecified; Z82.0 Family history of epilepsy and other diseases of the nervous system; Z82.49 Family history of ischemic heart disease and other diseases of the circulatory system; Z90.710 Acquired absence of both cervix and uterus; J30.2 Other seasonal allergic rhinitis; G90.9 Disorder of the autonomic nervous system, unspecified
CPT/HCPCS: 36415; 70450; 71046; 80048; 80053; 81001; 83036; 83735; 84484; 85025; 85610; 85730; 87077; 87086; 87186; 93005; 93306; 94760; 99285

== ENCOUNTER 2021-08-05 16:08 | Inpatient (IN) | payer MEDICARE ==
[2021-08-05] MEDS ORDERED: SODIUM CHLORIDE 0.9% 1,000 ML IV STA (16:23)
[2021-08-05 16:50] LABS: Basophils % (A) 0 %; Eosinophils % (A) 1 %; HCT 27.5 % (34.0-46.0); HGB 9.4 gm/dL (11.4-16.0); Lymphocytes # (A) 0.5 k/uL (1.0-4.8); Lymphocytes % (A) 10 %; MCH 30.7 pg (25.0-35.0); MCHC 34.2 g/dL (31.0-37.0); MCV 89.6 fL (80.0-100.0); Mean Platelet Volume 7.5; Monocytes # (A) 0.1 k/uL (0-1.0); Monocytes % (A) 2 %; Neutrophils # (A) 4.6 k/uL (1.3-7.7); Neutrophils % (A) 86 %; Platelet Count 228 k/uL (150-450); RBC 3.07 m/uL (3.80-5.40); RDW 13.3 % (11.5-15.5); WBC 5.4 k/uL (3.8-10.6)
[2021-08-05 17:00] LABS: Partial Thromboplastin Time 23.3 sec (22.0-30.0); Prothrombin Time 10.8 sec (9.0-12.0)
[2021-08-05 17:01] LABS: Albumin 3.3 g/dL (3.5-5.0); Calcium 8.2 mg/dL (8.4-10.2); Magnesium 1.7 mg/dL (1.6-2.3); Potassium 4.1 mmol/L (3.5-5.1); Total Bilirubin 0.5 mg/dL (0.2-1.3); Total Protein 5.9 g/dL (6.3-8.2)
--- NOTE | 2021-08-05 18:20 | CT ---
EXAMINATION TYPE: CT brain gillianine wo con DATE OF EXAM: 08/05/2021 COMPARISON: 05/30/2021 and 12/04/2018 HISTORY: Head trauma, minor TECHNIQUE: CT scan of the head and cervical spine without contrast CT DLP: 1361.6 mGycm Automated exposure control for dose reduction was used. FINDINGS: CT head: No acute intracranial hemorrhage, midline shift or mass effect. Antoine-white matter differentiation is preserved. There is mild brain volume loss and prominence of the CSF spaces and ventricles. chronic microvascula r ischemic changes seen in the deep periventricular white matter. No acute orbital, osseous or soft tissue abnormality seen. Paranasal sinuses and mastoid air cells are well aerated. Minimal atherosclerotic calcifications are seen in the intracranial internal carotid arteries. CT cervical spine: Motion artifact limits evaluation of the upper cervical spine. No acute distress fracture seen. The c raniocervical junction is maintained. Mild Straightening of cervical lordosis seen. Severe degenerative changes seen at C5-6 and C6-7. Mild uncovertebral facet joint arthropathy changes seen in the cervical spine. No bony spinal canal stenosis seen. Mild degenerative changes seen at th e craniocervical junction. No prevertebral soft tissue swelling seen. The soft tissue posterior to the cervical spine demonstrat es minimal stranding. Prominent bilateral cervical and supraclavicular lymph nodes are noted. The ascending aorta diameter is approximately 4.2 cm. Scattered calcifications seen in the wall of th e intrathoracic aorta. Mild groundglass opacities and interstitial septal thickening is seen in the upper lungs. IMPRESSION: 1. NO ACUTE INTRACRANIAL HEMORRHAGE, MIDLINE SHIFT OR MASS EFFECT. 2. No ACUTE FRACTURE OR DISLOCATION THE CERVICAL SPINE. 3. CHRONIC CHANGES WITHIN THE BRAIN DESCRIBED IN BODY OF REPORT. 4. 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
--- NOTE | 2021-08-05 18:35 | CT ---
EXAMINATION TYPE: CT thor lumbar spine wo con DATE OF EXAM: 08/05/2021 COMPARISON: None HISTORY: trauma, pain TECHNIQUE: CT scan of the thoracic and lumbar spine CT DLP: 1193 mGycm Automated exposure control for dose reduction was used. FINDINGS: No acute fracture or dislocation seen in the thoracic or lumbar spine. There is mild curvature of the spine. The vertebral body heights are maintained. Posterior elements are acutely intact. Mild to moderate degenerative changes in the thoracic and lumbar spine including narrowing of the int ervertebral spaces. Facet joint arthropathy changes and evidence of disc herniation in the lumbar spi ne extending from L2-3 to L5-S1. CHEST: There is diffuse groundglass opacities in the lungs and mild interstitial septal thickening. T here is a 4 mm nodular density in the left lower lobe series 202 image 56. No pleural effusion or pne umothorax seen. There is a calcified nodule in the right upper lobe. There are calcified mediastinal and hilar lymph nodes. No pathologically enlarged lymph nodes seen. The heart is normal in size. No pericardial effusion seen. Coronary arterial calcifications noted. The ascending aorta has a diameter of 4.5 x 4.6 cm. Scattered atherosclerotic calcifications are seen in the wall of the intrathoracic aorta. Abdominal aorta is nonaneurysmal. ABDOMEN: Innumerable punctate calcifications are seen in the spleen. The amount of stool seen in the colon. Cholecystectomy clips noted. Atherosclerotic calcifications are seen in the abdominal aorta. IMPRESSION: 1. NO ACUTE FRACTURE OR DISLOCATION. 2. DIFFUSE GROUNDGLASS OPACITIES AND MILD INTERSTITIAL SEPTAL THICKENING CARDIOMEGALY SUGGESTING PULM ONARY EDEMA/PULMONARY VASCULAR CONGESTION. 3. THERE IS A 4 MILLIMETER NODULE IN THE LEFT LOWER LOBE NONSPECIFIC, INFECTIOUS, INFLAMMATORY OR MAL IGNANT. SHORT-TERM FOLLOW-UP IN 3-6 MONTHS RECOMMENDED. 4. EVIDENCE OF REMOTE GRANULOMATOUS DISEASE. 5. 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 6. LARGE STOOL BURDEN.
--- NOTE | 2021-08-05 19:17 | ED ---
General Adult HPI - General Chief complaint: Syncope Stated complaint: syncope Time Seen by Provider: 08/05/21 16:20 Source: patient, EMS, RN notes reviewed, old records reviewed Mode of arrival: EMS Limitations: no limitations - History of Present Illness Initial comments: Patient was evaluated when she was placed in a room. Patient is a 76-year-old fe male with past medical history remarkable for orthostatic hypotension, hypertension, chronic tremors, diabetes, GERD, UTIs who presents emergency Department with complaints of multiple syncopal episodes at home today. Patient states that she was feeling lightheaded and "passed out" multiple times today. She believes she hit the back of her head. She is complaining of midline back pain as well as the back of her head pain. Denies any chest pain, shortness of breath. Denies any abdominal pain, nausea, vomiting. She states this does occur occasionally. She denies any fevers or chills or dysuria. Denies any vaginal discharge or bleeding. Denies any nausea or vomiting, diarrhea. She has no known sick contacts. She did receive both Covid vaccines. Other than the mild pain, which she states is well-controlled, she is complaining of nothing at this time. She presents emergency department after being brought by EMS. EMS placed the patient in a cervical collar. She denies being on blood thinners. - Related Data Home Medications Medication Instructions Recorded Confirmed Pramipexole [Mirapex] 1 mg PO HS 01/01/18 08/05/21 Primidone [Mysoline] 50 mg PO HS 01/01/18 08/05/21 Propranolol [Inderal] 40 mg PO HS 01/01/18 08/05/21 Simvastatin [Zocor] 20 mg PO HS 01/01/18 08/05/21 Aspirin [Adult Low Dose Aspirin EC] 81 mg PO DAILY 03/22/18 08/05/21 Candesartan Cilexetil 8 mg PO DAILY 05/30/21 08/05/21 Ibuprofen [Motrin Ib] 200 mg PO Q8H PRN 05/30/21 08/05/21 Naproxen Sodium [Aleve] 220 mg PO Q12H PRN 05/30/21 08/05/21 Vitacraves Gummies 2 tab PO DAILY 05/30/21 08/05/21 Vitamin D Gummies (Unknown Dose) 2 tab PO DAILY 05/30/21 08/05/21 Levocetirizine Dihydrochloride 5 mg PO DAILY 08/05/21 08/05/21 [Xyzal] Sodium Bicarbonate Tab 650 mg PO DAILY 08/05/21 08/05/21 glipiZIDE [Glucotrol] 5 mg PO HS 08/05/21 08/05/21 Allergies Allergy/AdvReac Type Severity Reaction Status Date / Time bee venom protein (honey bee) Allergy Swelling Verified 08/05/21 18:14 cat dander Allergy Rash/Hives Verified 08/05/21 18:14 Review of Systems ROS Statement: Those systems with pertinent positive or pertinent negative responses have been documented in the HPI. Review of Systems: CONST: Denies fever EYES: Denies blurry vision ENT: Denies nasal congestion C/V: Denies Chest pain RESP: Denies shortness of breath GI: Denies abdominal pain : Denies dysuria SKIN: Denies rash. MSK: Endorses joint pain. NEURO: Denies headache ROS Other: All systems not noted in ROS Statement are negative. Past Medical History Past Medical History: Diabetes Mellitus, GERD/Reflux, Hyperlipidemia, Hypertension, Osteoarthritis (OA) Additional Past Medical History / Comment(s): tremors in hand and heads, varicose veins rt leg, occasional dizzy spells and off balance "comes and goes", seasonal allergies History of Any Multi-Drug Resistant Organisms: None Reported Past Surgical History: Appendectomy, Cholecystectomy, Hysterectomy Additional Past Surgical History / Comment(s): vein stripping lt leg. DIANA PROCEDURE 03/30/18. COLONOSCOPY. hernia repair Past Anesthesia/Blood Transfusion Reactions: No Reported Reaction Past Psychological History: No Psychological Hx Reported Smoking Status: Never smoker Past Alcohol Use History: None Reported Past Drug Use History: None Reported - Past Family History Mother Family Medical History: Coronary Artery Disease (CAD), Dementia Brother(s) Family Medical History: Cancer, Congestive Heart Failure (CHF), Coronary Artery Disease (CAD) Additional Family Medical History / Comment(s): 1 brother of cancer, 1 of heart disease, 3 brothers agent orange 1 brother alzheimer Sister(s) Family Medical History: Cancer Additional Family Medical History / Comment(s): 2 sisters young of cancer General Exam - General Exam Comments Initial Comments: General: Appears in no acute distress. HEAD: Normal with no signs of head trauma. No Christine sign, no raccoon eyes. Negative for hemotympanum. EYES: PERRLA, EOMI, conjunctiva normal, no discharge. Pupils are 3 mm and equal bilaterally. ENT: Hearing grossly intact, normal oropharynx. Dry mucous membranes. RESPIRATORY: Clear breath sounds bilaterally. No wheezes, rales, or rhonchi. C/V: Regular rate and rhythm. S1 and S2 auscultated, no edema, peripheral pulses 2+ and intact throughout ABD: Abd is soft, nontender, nondistended EXT: Normal range of motion, no obvious deformity. Patient has mild midline cervical, thoracic, lumbar spine tenderness palpation. There is also extension the paraspinal muscles which seemed to be more tender. Pelvis is stable. SKIN: No rashes or lesions observed on exposed skin. NEURO: Alert and oriented 4. GCS is 15. NIH is 0. No focal deficits. Kristin ent has a chronic baseline tremor. Limitations: no limitations Course Vital Signs 08/05/21 08/05/21 16:14 19:02 Temperature 99.1 F Pulse Rate 90 70 Respiratory 20 18 Rate Blood Pressure 90/67 95/73 O2 Sat by Pulse 96 94 L Oximetry Medical Decision Making - Medical Decision Making Based on the patient's presentation and physical exam, I'm concerned for acute dehydration at this time, however it does appear that she had multiple syncopal episodes with some posterior scalp pain as well as back pain. Therefore we will obtain a cardiac workup in addition to CT imaging of the head, C-spine, thoracic spine, lumbar spine. She was in agreement this plan. Urinalysis also be obtained. Blood cultures and lactate will be sent as the patient presented mildly hypotensive. She'll be given a 1 L fluid bolus and reassessed. She was in agreement with this plan. She'll be connected to continuous cardiac monitoring while she is here in the department. Head CT showed no acute intracranial process. Cervical spine, thoracic spine, lumbar spine CT showed no acute traumatic process. They did see if he is 400 dilation of the ascending aorta. There is also nodule in the left lower lobe that is nonspecific, but I discussed with the patient and made them aware. He also commented on what appears to be redosed later updated to include bilateral groundglass opacities concerning for pulmonary edema. The setting of dehydration, they will administered a one-time dose of Rocephin here in the department and repeat x-rays tomorrow. Chest x-ray was obtained and revealed []. COVID-19 swab is negative. Laboratory studies are remarkable for a normocytic anemia of 9.4. Ration select lites are remarkable for a hyponatremia of 123 and hypokalemia 92. Patient is an AK I with an elevated creatinine and UN of 21.06. Baseline creatinine is approximately 0.5. Patient is mildly elevated LFTs, with AST 45 and ALT of 40. Troponin is negative. Remainder of her labs are relatively unremarkable. Urinalysis is still pending at this time. Patient will be given a one-time dose of antiemetics in the department and subsequently reassess. CT imaging was concerning for possible pneumonia versus interstitial edema in the lungs, however patient is relatively a symptomatically denies any cough, fevers, chills, difficulty breathing. As we are currently waiting for her urinalysis, I will administered one-time dose of Rocephin here in the department to cover for the possible pneumonia. He lives in agreement this plan. Due to the patient's hyponatremia, as well as dehydration an AK I, I recommended that we admit the patient to the hospital for telemetry monitoring. They were in agreement this plan. I spoke with the admitting physician, Dr. Melgar who accepted the patient. Patient was therefore be admitted in serious condition to telemetry bed. She was started on a maintenance drip of 100 mL an hour normal saline for her hyponatremia and dehydration. - Lab Data Result diagrams: 08/05/21 16:42 08/05/21 16:42 Lab Results 08/05/21 08/05/21 08/05/21 Range/Units 16:42 16:42 16:42 WBC 5.4 (3.8-10.6) k/uL RBC 3.07 L (3.80-5.40) m/uL Hgb 9.4 L (11.4-16.0) gm/dL Hct 27.5 L (34.0-46.0) % MCV 89.6 (80.0-100.0) fL MCH 30.7 (25.0-35.0) pg MCHC 34.2 (31.0-37.0) g/dL RDW 13.3 (11.5-15.5) % Plt Count 228 (150-450) k/uL MPV 7.5 Neutrophils % 86 % Lymphocytes % 10 % Monocytes % 2 % Eosinophils % 1 % Basophils % 0 % Neutrophils # 4.6 (1.3-7.7) k/uL Lymphocytes # 0.5 L (1.0-4.8) k/uL Monocytes # 0.1 (0-1.0) k/uL Eosinophils # 0.0 (0-0.7) k/uL Basophils # 0.0 (0-0.2) k/uL PT 10.8 (9.0-12.0) sec INR 1.0 (<1.2) APTT 23.3 (22.0-30.0) sec Sodium 123 L (137-145) mmol/L Potassium 4.1 (3.5-5.1) mmol/L Chloride 92 L (98-107) mmol/L Carbon Dioxide 22 (22-30) mmol/L Anion Gap 9 mmol/L BUN 28 H (7-17) mg/dL Creatinine 1.06 H (0.52-1.04) mg/dL Est GFR (CKD-EPI)AfAm 59 (>60 ml/min/1.73 sqM) Est GFR (CKD-EPI)NonAf 51 (>60 ml/min/1.73 sqM) Glucose 114 H (74-99) mg/dL Plasma Lactic Acid Alan (0.7-2.0) mmol/L Calcium 8.2 L (8.4-10.2) mg/dL Magnesium 1.7 (1.6-2.3) mg/dL Total Bilirubin 0.5 (0.2-1.3) mg/dL AST 45 H (14-36) U/L ALT 40 H (4-34) U/L Alkaline Phosphatase 72 (38-126) U/L Troponin I (0.000-0.034) ng/mL Total Protein 5.9 L (6.3-8.2) g/dL Albumin 3.3 L (3.5-5.0) g/dL 08/05/21 08/05/21 Range/Units 16:42 16:42 WBC (3.8-10.6) k/uL RBC (3.80-5.40) m/uL Hgb (11.4-16.0) gm/dL Hct (34.0-46.0) % MCV (80.0-100.0) fL MCH (25.0-35.0) pg MCHC (31.0-37.0) g/dL RDW (11.5-15.5) % Plt Count (150-450) k/uL MPV Neutrophils % % Lymphocytes % % Monocytes % % Eosinophils % % Basophils % % Neutrophils # (1.3-7.7) k/uL Lymphocytes # (1.0-4.8) k/uL Monocytes # (0-1.0) k/uL Eosinophils # (0-0.7) k/uL Basophils # (0-0.2) k/uL PT (9.0-12.0) sec INR (<1.2) APTT (22.0-30.0) sec Sodium (137-145) mmol/L Potassium (3.5-5.1) mmol/L Chloride (98-107) mmol/L Carbon Dioxide (22-30) mmol/L Anion Gap mmol/L BUN (7-17) mg/dL Creatinine (0.52-1.04) mg/dL Est GFR (CKD-EPI)AfAm (>60 ml/min/1.73 sqM) Est GFR (CKD-EPI)NonAf (>60 ml/min/1.73 sqM) Glucose (74-99) mg/dL Plasma Lactic Acid Alan 1.0 (0.7-2.0) mmol/L Calcium (8.4-10.2) mg/dL Magnesium (1.6-2.3) mg/dL Total Bilirubin (0.2-1.3) mg/dL AST (14-36) U/L ALT (4-34) U/L Alkaline Phosphatase (38-126) U/L Troponin I <0.012 (0.000-0.034) ng/mL Total Protein (6.3-8.2) g/dL Albumin (3.5-5.0) g/dL - EKG Data -: EKG Interpreted by Me EKG Comments: 12-lead Electrocardiogram Interpretation Note EKG was reviewed and interpreted by myself. 12-lead ECG performed at 1616 is interpreted by me as revealing normal sinus rhythm at a rate of 79 beats per minute. [place] is normal. MO intervals 180 ms, QR sabianism is 96 seconds, QTC is 451 ms.. There were no ST or T wave abnormalities to suggest myocardial ischemia or injury. R wave progression across the precordium was satisfactory. By my interpretation this EKG is non-diagnostic for acute ischemia. Disposition Clinical Impression: Dehydration, NORBERTO (acute kidney injury), Hyponatremia, Pneumonia, Normocytic anemia, Syncope, Orthostatic hypotension Disposition: ADMITTED IP TO THIS HOSP Condition: Serious Referrals: Irina Jackson DO [Primary Care Provider] - 1-2 days
[2021-08-05] MEDS: SODIUM CHLORIDE 0.9% 1,000 ML IV SCH ×2 (20:16→22:19)
[2021-08-05] MEDS ORDERED: cefTRIAXone IN SWFI 1,000 MG/10 ML SYRINGE IVP STA (20:34)
--- NOTE | 2021-08-05 21:00 | XR ---
EXAMINATION TYPE: XR chest 2V DATE OF EXAM: 08/05/2021 COMPARISON: NONE HISTORY: Syncope TECHNIQUE: 2 views FINDINGS: There is no heart failure nor confluent pneumonic infiltrate. There are chest leads. Costop hrenic angles are clear. Heart size is normal. The thorax is intact. IMPRESSION: No active cardiopulmonary disease. Normal heart. No change.
[2021-08-05] MEDS: ATORVASTATIN 10 MG TAB PO SCH (22:18)
[2021-08-05] MEDS: AZITHROMYCIN 500 MG in SODIUM CHLORIDE 0.9% 250 ML IVPB SCH (22:18)
[2021-08-05] MEDS: PROPRANOLOL 40 MG TAB PO SCH (23:28)
[2021-08-06 01:20] LABS: Appearance,Urine Clear (Clear); Bilirubin,Urine Negative (Negative); Blood,Urine Negative (Negative); Color,Urine Light Yellow; Glucose,Urine (UA) Negative (Negative); Ketones,Urine Negative (Negative); Leukocyte Esterase,Urine Negative (Negative); Nitrite,Urine Negative (Negative); Protein,Urine Negative (Negative); Specific Gravity,Urine 1.006 (1.001-1.035); Urobilinogen,Urine <2.0 mg/dL (<2.0)
[2021-08-06] MEDS: ASPIRIN 81 MG PO SCH (07:56)
[2021-08-06] MEDS: LORATADINE 10 MG TAB PO SCH (07:56)
[2021-08-06] MEDS: PROPRANOLOL 40 MG TAB PO SCH (07:57)
[2021-08-06] MEDS: AZITHROMYCIN 500 MG in SODIUM CHLORIDE 0.9% 250 ML IVPB SCH (08:31)
[2021-08-06] MEDS ORDERED: LOSARTAN 50 MG TAB PO SCH (09:00)
[2021-08-06] MEDS: SODIUM CHLORIDE 0.9% 1,000 ML IV SCH ×2 (14:30→19:29)
[2021-08-06 18:50] LABS: Basophils % (A) 0 %; Eosinophils % (A) 1 %; HCT 26.4 % (34.0-46.0); HGB 8.5 gm/dL (11.4-16.0); Lymphocytes # (A) 0.9 k/uL (1.0-4.8); Lymphocytes % (A) 31 %; MCH 30.2 pg (25.0-35.0); MCHC 32.1 g/dL (31.0-37.0); Mean Platelet Volume 7.6; Monocytes # (A) 0.2 k/uL (0-1.0); Monocytes % (A) 6 %; Neutrophils # (A) 1.7 k/uL (1.3-7.7); Neutrophils % (A) 58 %; Platelet Count 204 k/uL (150-450); RBC 2.81 m/uL (3.80-5.40); RDW 13.5 % (11.5-15.5)
[2021-08-06 18:53] LABS: African American GFR (CKD) >90 (>60 ml/min/1.73 sqM); Anion Gap 8 mmol/L; Blood Urea Nitrogen 14 mg/dL (7-17); Calcium 8.2 mg/dL (8.4-10.2); Carbon Dioxide 16 mmol/L (22-30); Chloride 104 mmol/L (98-107); Glucose 118 mg/dL (74-99); Non-African American GFR(CKD) 87 (>60 ml/min/1.73 sqM); Potassium 3.5 mmol/L (3.5-5.1); Sodium 128 mmol/L (137-145)
[2021-08-06] MEDS: ATORVASTATIN 10 MG TAB PO SCH (19:29)
[2021-08-06] MEDS ORDERED: PRAMIPEXOLE 1 MG TAB PO SCH (21:00)
--- NOTE | 2021-08-07 00:21 | P.HPIM ---
History of Present Illness H&P Date: 08/06/21 Chief Complaint: syncope Janett Cid is a 76 yo F with PMH of tremors, hypertension, diabetes, hyponatremia who presented to the ED after episodes of near syncope at home. She notes that she had been experiencing episodes of dizziness and passed out multiple times earlier today. She states she was having similar symptoms 2 months ago and was seen by Cardiology at that time and no cardiac cause. She states she has been drinking plenty of fluids every day since her last admission. She has not had a chance to follow [facility] with Neurology. On presentation vitals stable, labs with sodium 123 and Cr 1.06 with baseline 0.6. Review of Systems All systems: negative Constitutional: Reports malaise, Reports weakness, Denies chills, Denies fever Eyes: denies blurred vision, denies pain Ears, nose, mouth and throat: Denies headache, Denies sore throat Cardiovascular: Reports syncope, Denies chest pain, Denies shortness of breath Respiratory: Denies cough Gastrointestinal: Denies abdominal pain, Denies diarrhea, Denies nausea, Denies vomiting Genitourinary: Denies dysuria, Denies hematuria Musculoskeletal: Denies myalgias Integumentary: Denies pruritus, Denies rash Neurological: Denies numbness, Denies weakness Psychiatric: Denies anxiety, Denies depression Endocrine: Denies fatigue, Denies weight change Past Medical History Past Medical History: Diabetes Mellitus, GERD/Reflux, Hyperlipidemia, Hypertension, Osteoarthritis (OA) Additional Past Medical History / Comment(s): tremors in hand and heads, varicose veins rt leg, occasional dizzy spells and off balance "comes and goes", seasonal allergies History of Any Multi-Drug Resistant Organisms: None Reported Past Surgical History: Appendectomy, Cholecystectomy, Hysterectomy Additional Past Surgical History / Comment(s): vein stripping lt leg. DIANA PROCEDURE 03/30/18. COLONOSCOPY. hernia repair Past Anesthesia/Blood Transfusion Reactions: No Reported Reaction Past Psychological History: No Psychological Hx Reported Smoking Status: Never smoker Past Alcohol Use History: None Reported Past Drug Use History: None Reported - Past Family History Mother Family Medical History: Coronary Artery Disease (CAD), Dementia Brother(s) Family Medical History: Cancer, Congestive Heart Failure (CHF), Coronary Artery Disease (CAD) Additional Family Medical History / Comment(s): 1 brother of cancer, 1 of heart disease, 3 brothers agent orange 1 brother alzheimer Sister(s) Family Medical History: Cancer Additional Family Medical History / Comment(s): 2 sisters young of cancer Medications and Allergies Home Medications Medication Instructions Recorded Confirmed Type Pramipexole [Mirapex] 1 mg PO HS 01/01/18 08/05/21 History Primidone [Mysoline] 50 mg PO HS 01/01/18 08/05/21 History Propranolol [Inderal] 40 mg PO HS 01/01/18 08/05/21 History Simvastatin [Zocor] 20 mg PO HS 01/01/18 08/05/21 History Aspirin [Adult Low Dose Aspirin EC] 81 mg PO DAILY 03/22/18 08/05/21 History Candesartan Cilexetil 8 mg PO DAILY 05/30/21 08/05/21 History Ibuprofen [Motrin Ib] 200 mg PO Q8H PRN 05/30/21 08/05/21 History Naproxen Sodium [Aleve] 220 mg PO Q12H PRN 05/30/21 08/05/21 History Vitacraves Gummies 2 tab PO DAILY 05/30/21 08/05/21 History Vitamin D Gummies (Unknown Dose) 2 tab PO DAILY 05/30/21 08/05/21 History Levocetirizine Dihydrochloride 5 mg PO DAILY 08/05/21 08/05/21 History [Xyzal] Sodium Bicarbonate Tab 650 mg PO DAILY 08/05/21 08/05/21 History glipiZIDE [Glucotrol] 5 mg PO HS 08/05/21 08/05/21 History Allergies Allergy/AdvReac Type Severity Reaction Status Date / Time bee venom protein (honey bee) Allergy Swelling Verified 08/05/21 18:14 cat dander Allergy Rash/Hives Verified 08/05/21 18:14 Physical Exam Vitals: Vital Signs Temp Pulse Resp BP Pulse Ox 08/06/21 20:00 98.9 F 54 L 18 114/70 94 L 08/06/21 14:00 98 F 62 16 129/69 94 L 08/06/21 07:37 97.6 F 69 16 137/72 95 08/06/21 02:00 98.0 F 65 16 118/73 96 Intake and Output 08/06/21 08/06/21 08/07/21 14:59 22:59 06:59 Intake Total 1200 Output Total 677 1200 Balance 523 -1200 Intake: Intake, IV Titration 1200 Amount Azithromycin 500 mg In 250 Sodium Chloride 0.9% 250 ml @ 250 mls/hr IVPB DAILY [facility] Rx#:[id number] Sodium Chloride 0.9% 1, 900 000 ml @ 100 mls/hr IV . Q10H [facility] Rx#:[id number] cefTRIAXone 1 gm In 50 Sodium Chloride 0.9% 50 ml @ 100 mls/hr IVPB Q24HR [facility] Rx#:[id number] Output: Urine 1200 Post Void Residual 677 Other: Voiding Method Indwelling Catheter General: well nourished, well developed, NAD. Vitals reviewed Eyes: PERRL, EOMI, conjunctiva normal HENT: normocephalic, mucus membranes moist Neck: supple, no JVD Lungs: normal respiratory effort, no wheezes or rales CV: Regular rate and rhythm, no murmur. Peripheral pulses 2+ Abdomen: soft, nondistended, no organomegaly Lymph: no cervical or axillary LAD Skin: warm and dry. Neuro: A&Ox3, normal mood and affect. Resting tremor to face/head Results CBC & Chem 7: 08/06/21 18:37 08/06/21 18:37 Labs: Abnormal Lab Results - Last 24 Hours (Table) 08/06/21 08/06/21 Range/Units 18:37 18:37 WBC 3.0 L (3.8-10.6) k/uL RBC 2.81 L (3.80-5.40) m/uL Hgb 8.5 L (11.4-16.0) gm/dL Hct 26.4 L (34.0-46.0) % Lymphocytes # 0.9 L (1.0-4.8) k/uL Sodium 128 L (137-145) mmol/L Carbon Dioxide 16 L (22-30) mmol/L Glucose 118 H (74-99) mg/dL Calcium 8.2 L (8.4-10.2) mg/dL Microbiology - Last 24 Hours (Table) 08/05/21 16:42 Blood Culture - Preliminary Blood No Growth after 24 hours 08/05/21 16:42 Blood Culture - Preliminary Blood No Growth after 24 hours Assessment and Plan Plan: 1. Hyponatremia and acute kidney injury. Start IV fluids. consult nephrology. check urine sodium and osmolality. Hold tremor medications. Continue home bicarb 2. HTN. Reduce cozaar from 50 to 25 mg 3. T2DM. Hold glipizide, sugars controlled currently
[2021-08-07] MEDS: ACETAMINOPHEN TAB 325 MG TAB PO PRN (03:49)
[2021-08-07] MEDS: SODIUM BICARBONATE TAB 650 MG TAB PO SCH (07:34)
[2021-08-07] MEDS: LORATADINE 10 MG TAB PO SCH (07:34)
[2021-08-07] MEDS: ASPIRIN 81 MG PO SCH (07:35)
[2021-08-07] MEDS: LOSARTAN 25 MG TAB PO SCH (07:35)
[2021-08-07 08:49] LABS: African American GFR (CKD) >90 (>60 ml/min/1.73 sqM); Anion Gap 7 mmol/L; Blood Urea Nitrogen 9 mg/dL (7-17); Calcium 8.4 mg/dL (8.4-10.2); Carbon Dioxide 20 mmol/L (22-30); Chloride 103 mmol/L (98-107); Glucose 103 mg/dL (74-99); Non-African American GFR(CKD) 87 (>60 ml/min/1.73 sqM); Potassium 3.1 mmol/L (3.5-5.1); Sodium 130 mmol/L (137-145)
[2021-08-07] MEDS ORDERED: POTASSIUM CHLORIDE ER 20 MEQ TAB.ER PO STA (09:16)
--- NOTE | 2021-08-07 09:51 | P.NPCON ---
History of Present Illness - Reason for Consult hyponatremia - History of Present Illness Reason for consultation: Hyponatremia History of present illness: Patient is a 76-year-old female seen in renal consultation for hyponatremia. Patient presented to the hospital due to syncopal episodes. Patient states she felt lightheaded and dizzy at home and was passing out. Patient's sodium level was low at 123 on admission and is up to 1:30 today. She is maintained on normal saline. She was noted to have urinary retention that over 2 L drained and Maravilla catheter was initially placed. Acidosis is improving. Creatinine was 1.06 on admission and is now 0.63. Denies use of diuretics. She was taking n aproxen as needed for pain. She does have history of diabetes. No history of malignancy. No vomiting or diarrhea. Oral intake is fair. No hematuria or dysuria. Vital signs are stable. General: The patient appeared well nourished and normally developed. HEENT: Head exam is unremarkable. LUNGS: Breath sounds decreased. HEART: Rate and Rhythm are regular. ABDOMEN: Soft, no distention. EXTREMITITES: No edema. Tremors noted. Past Medical History Past Medical History: Diabetes Mellitus, GERD/Reflux, Hyperlipidemia, Hypertension, Osteoarthritis (OA) Additional Past Medical History / Comment(s): tremors in hand and heads, varic ose veins rt leg, occasional dizzy spells and off balance "comes and goes", seasonal allergies History of Any Multi-Drug Resistant Organisms: None Reported Past Surgical History: Appendectomy, Cholecystectomy, Hysterectomy Additional Past Surgical History / Comment(s): vein stripping lt leg. DIANA PROCEDURE 03/30/18. COLONOSCOPY. hernia repair Past Anesthesia/Blood Transfusion Reactions: No Reported Reaction Past Psychological History: No Psychological Hx Reported Smoking Status: Never smoker Past Alcohol Use History: None Reported Past Drug Use History: None Reported - Past Family History Mother Family Medical History: Coronary Artery Disease (CAD), Dementia Brother(s) Family Medical History: Cancer, Congestive Heart Failure (CHF), Coronary Artery Disease (CAD) Additional Family Medical History / Comment(s): 1 brother of cancer, 1 of heart disease, 3 brothers agent orange 1 brother alzheimer Sister(s) Family Medical History: Cancer Additional Family Medical History / Comment(s): 2 sisters young of cancer Medications and Allergies Home Medications Medication Instructions Recorded Confirmed Type Pramipexole [Mirapex] 1 mg PO HS 01/01/18 08/05/21 History Primidone [Mysoline] 50 mg PO HS 01/01/18 08/05/21 History Propranolol [Inderal] 40 mg PO HS 01/01/18 08/05/21 History Simvastatin [Zocor] 20 mg PO HS 01/01/18 08/05/21 History Aspirin [Adult Low Dose Aspirin EC] 81 mg PO DAILY 03/22/18 08/05/21 History Candesartan Cilexetil 8 mg PO DAILY 05/30/21 08/05/21 History Ibuprofen [Motrin Ib] 200 mg PO Q8H PRN 05/30/21 08/05/21 History Naproxen Sodium [Aleve] 220 mg PO Q12H PRN 05/30/21 08/05/21 History Vitacraves Gummies 2 tab PO DAILY 05/30/21 08/05/21 History Vitamin D Gummies (Unknown Dose) 2 tab PO DAILY 05/30/21 08/05/21 History Levocetirizine Dihydrochloride 5 mg PO DAILY 08/05/21 08/05/21 History [Xyzal] Sodium Bicarbonate Tab 650 mg PO DAILY 08/05/21 08/05/21 History glipiZIDE [Glucotrol] 5 mg PO HS 08/05/21 08/05/21 History Allergies Allergy/AdvReac Type Severity Reaction Status Date / Time bee venom protein (honey bee) Allergy Swelling Verified 08/05/21 18:14 cat dander Allergy Rash/Hives Verified 08/05/21 18:14 Physical Exam Vitals: Vital Signs Temp Pulse Resp BP Pulse Ox 08/07/21 08:00 98.2 F 65 16 122/73 98 08/07/21 02:00 97.3 F L 56 L 17 125/73 97 08/06/21 20:00 98.9 F 54 L 18 114/70 94 L 08/06/21 14:00 98 F 62 16 129/69 94 L Intake and Output 08/06/21 08/07/21 08/07/21 22:59 06:59 14:59 Output Total 1200 1200 Balance -1200 -1200 Output: Urine 1200 1200 Other: Voiding Method Indwelling Catheter Results - Lab Results Most recent lab results Calcium 8.4 mg/dL (8.4-10.2) 08/07/21 07:42 Magnesium 1.7 mg/dL (1.6-2.3) 08/05/21 16:42 08/06/21 18:37 08/07/21 07:42 Assessment and Plan Plan: Assessment: 1. Hyponatremia secondary to urinary retention. Improved. 2. Urinary retention status post Maravilla catheter placement. 3. Hypokalemia from poor intake and postobstructive diuresis. 4. Mild acute kidney injury secondary to urinary retention. Resolved. 5. Benign hypertension. Controlled. Plan: Decreased rate of normal saline to 75 mL an hour. Add Flomax. Check orthostatic vital signs. If standing blood pressure below 115/70, discontinue Cozaar. Replace potassium. Thank you for the consultation. I will continue to follow the patient with you during her hospital stay.
--- NOTE | 2021-08-07 16:13 | PN ---
PROGRESS NOTE I am covering for Dr. Melgar. DATE OF SERVICE: 08/07/2021. This 76-year-old woman who was admitted with hyponatremia and acute kidney injury is being closely monitored. No chest pain. No palpitations. No fever. The sodium is 130. Dr. Ashraf is following the patient and recommended continued IV fluids. No chest pain. No palpitations. No fever. PHYSICAL EXAMINATION: Alert and oriented x3. Pulse is 65, blood pressure 120/73, respiration 16, temperature 98.2, pulse ox 98% on room air. HEENT: Conjunctivae normal. NECK: No jugular venous distention. CARDIOVASCULAR: S1, S2 muffled. RESPIRATION: Breath sounds diminished at the bases. A few scattered rhonchi. ABDOMEN: Soft. NERVOUS SYSTEM: No focal deficit. LABS: Labs at this time show WBC 3, hemoglobin is 8.5. Sodium 130. ASSESSMENT: 1. Hyponatremia second to urinary retention. 2. Urinary retention, status post Maravilla catheter placement. 3. Hypokalemia from poor intake. 4. Anemia. 5. Mild leukopenia. 6. Mild metabolic acidosis. 7. Elevated procalcitonin. 8. History of diabetes mellitus, type 2. 9. Gastroesophageal reflux disease. 10.Hypertension. 11.Hyperlipidemia. 12.History of degenerative joint disease. 13.History of tremors. 14.History of appendectomy. 15.History of cholecystectomy. 16.History of hysterectomy. 17.History of colonoscopy. 18.Stent procedure 03/30/18. 19.Obesity with body mass index of 30.2. 20.FULL CODE. RECOMMENDATIONS AND DISCUSSION: In this 76-year-old woman who presented with multiple complex medical issues, we will monitor the patient closely, continue the current medications, continue symptomatic treatment. Otherwise, UA is unremarkable. Will repeat the labs for tomorrow and closely follow with Nephrology. Guarded prognosis. Further recommendations to follow. MMODL / IJN: [id number] /
[2021-08-07] MEDS: TAMSULOSIN 0.4 MG CAP.ER.24H PO SCH (17:10)
[2021-08-07] MEDS: IBUPROFEN 200 MG TAB PO PRN (19:18)
[2021-08-07] MEDS: ATORVASTATIN 10 MG TAB PO SCH (20:08)
[2021-08-07] MEDS: PROPRANOLOL 40 MG TAB PO SCH (20:08)
[2021-08-07] MEDS: SODIUM CHLORIDE 0.9% 1,000 ML IV SCH ×2 (20:10→20:11)
[2021-08-08 07:41] LABS: Chloride 104 mmol/L (98-107); Glucose 102 mg/dL (74-99); Potassium 3.6 mmol/L (3.5-5.1); Sodium 133 mmol/L (137-145)
[2021-08-08 07:43] LABS: African American GFR (CKD) >90 (>60 ml/min/1.73 sqM); Anion Gap 7 mmol/L; Blood Urea Nitrogen 4 mg/dL (7-17); Calcium 8.3 mg/dL (8.4-10.2); Carbon Dioxide 22 mmol/L (22-30); Magnesium 1.6 mg/dL (1.6-2.3); Non-African American GFR(CKD) >90 (>60 ml/min/1.73 sqM)
[2021-08-08] MEDS: LORATADINE 10 MG TAB PO SCH (08:31)
[2021-08-08] MEDS: LOSARTAN 25 MG TAB PO SCH (08:31)
[2021-08-08] MEDS: SODIUM BICARBONATE TAB 650 MG TAB PO SCH (08:31)
[2021-08-08] MEDS: ASPIRIN 81 MG PO SCH (08:31)
[2021-08-08] MEDS ORDERED: POTASSIUM CHLORIDE ER 20 MEQ TAB.ER PO STA (10:25)
--- NOTE | 2021-08-08 10:26 | P.PN ---
Subjective Patient is seen in follow-up for hyponatremia. Sodium level improving with IV hydration. Oral intake here. Nonoliguric. Has a Maravilla catheter for urinary retention. Vital signs are stable. General: The patient appeared well nourished and normally developed. HEENT: Head exam is unremarkable. LUNGS: Breath sounds decreased. HEART: Rate and Rhythm are regular. ABDOMEN: Soft, no distention. EXTREMITITES: No edema. Objective - Vital Signs Vital signs: Vital Signs Temp 98.8 F 08/08/21 08:00 Pulse 58 L 08/08/21 08:32 Resp 18 08/08/21 08:32 BP 122/69 08/08/21 08:00 Pulse Ox 91 L 08/08/21 08:00 Intake & Output 08/07/21 08/08/21 08/08/21 18:59 06:59 18:59 Intake Total 680 Output Total 1600 2000 Balance -920 -2000 Intake: Oral 680 Output: Urine 1600 2000 Other: Voiding Method Indwelling Catheter Indwelling Catheter Indwelling Catheter # Bowel Movements 1 0 - Labs CBC & Chem 7: 08/06/21 18:37 08/08/21 07:11 Labs: Abnormal Lab Results - Last 24 Hours (Table) 08/08/21 Range/Units 07:11 Sodium 133 L (137-145) mmol/L BUN 4 L (7-17) mg/dL Glucose 102 H (74-99) mg/dL Calcium 8.3 L (8.4-10.2) mg/dL Microbiology - Last 24 Hours (Table) 08/05/21 16:42 Blood Culture - Preliminary Blood No Growth after 48 hours 08/05/21 16:42 Blood Culture - Preliminary Blood No Growth after 48 hours Assessment and Plan Plan: Assessment: 1. Hyponatremia secondary to urinary retention. Improved. 2. Urinary retention status post Maravilla catheter placement. On Flomax. 3. Hypokalemia from poor intake and postobstructive diuresis. 4. Mild acute kidney injury secondary to urinary retention. Resolved. 5. Benign hypertension. Controlled. Standing blood pressure not low. Plan: Decrease rate of normal saline to 50 mL an hour. Replace potassium and magnesium. Repeat labs in the morning.
[2021-08-08] MEDS: MAGNESIUM SULFATE-D5W PMX 1 GM in DEXTROSE/WATER 1 100ML.BAG IVPB SCH ×2 (10:43→11:43)
[2021-08-08] MEDS: SODIUM CHLORIDE 0.9% 1,000 ML IV SCH (10:43)
[2021-08-08 12:17] LABS: Basophils # (A) 0.01 X 10*3/uL (0.00-0.10); Basophils % (A) 0.2 %; Eosinophils # (A) 0.07 X 10*3/uL (0.04-0.35); Eosinophils % (A) 1.1 %; HCT 24.3 % (37.2-46.3); HGB 7.9 g/dL (12.0-15.0); Lymphocytes # (A) 1.23 X 10*3/uL (0.90-5.00); Lymphocytes % (A) 20.1 %; MCH 29.6 pg (27.0-32.0); MCHC 32.5 g/dL (32.0-37.0); Mean Platelet Volume 10.7 fL (9.5-12.2); Monocytes # (A) 0.52 X 10*3/uL (0.20-1.00); Monocytes % (A) 8.5 %; Neutrophils # (A) 4.26 X 10*3/uL (1.80-7.70); Neutrophils % (A) 69.6 %; Platelet Count 236 X 10*3/uL (140-440); RBC 2.67 X 10*6/uL (4.10-5.20); RDW 14.1 % (11.5-14.5); WBC 6.12 X 10*3/uL (4.50-10.00)
[2021-08-08] MEDS: TAMSULOSIN 0.4 MG CAP.ER.24H PO SCH (16:32)
--- NOTE | 2021-08-08 18:46 | PN ---
PROGRESS NOTE DATE OF SERVICE: 08/08/2021 This 76-year-old woman who was admitted with hyponatremia secondary to urine retention, is being closely monitored. No chest pain. No palpitations. No fever. PHYSICAL EXAMINATION: Alert and oriented x3. Pulse 77, blood pressure 121/77, respiration 18, temperature 98.2, pulse ox 98% on room air. HEENT: Conjunctivae normal. Oral mucosa moist. NECK: No jugular venous distention. No lymph node enlargement. CARDIOVASCULAR: S1, S2, muffled. No S3, no S4, RESPIRATORY: Diminished breath sounds at the bases. A few scattered rhonchi. ABDOMEN: Soft. NERVOUS SYSTEM: No focal deficits. LABS: WBC 6.1, hemoglobin 7.2, sodium 133. ASSESSMENT: 1. Hyponatremia secondary to urinary retention. 2. Urinary retention status post Maravilla catheter placement. 3. Hypokalemia from poor intake. 4. Anemia. 5. Mild leukopenia. 6. Mild metabolic acidosis. 7. Elevated procalcitonin. 8. History of diabetes mellitus type 2. 9. Gastroesophageal reflux disease. 10.Hypertension. 11.Hyperlipidemia. 12.History of DJD. 13.History of tremors. 14.History of appendectomy. 15.History of cholecystectomy. 16.History of hysterectomy. 17.History of colonoscopy. 18.Stent procedure 03/30/2018. 19.Obesity with body mass index of 30.2. 20.FULL CODE. RECOMMENDATION: Recommend to continue current medications and symptomatic treatment. Otherwise, continue to monitor. Dr. Melgar will follow tomorrow. MMODL / IJN: [id number] /
[2021-08-08] MEDS: ATORVASTATIN 10 MG TAB PO SCH (20:54)
[2021-08-08] MEDS: PROPRANOLOL 40 MG TAB PO SCH (20:55)
[2021-08-09] MEDS: LOSARTAN 25 MG TAB PO SCH (08:39)
[2021-08-09] MEDS: ASPIRIN 81 MG PO SCH (08:39)
[2021-08-09] MEDS: LORATADINE 10 MG TAB PO SCH (08:39)
[2021-08-09] MEDS: SODIUM BICARBONATE TAB 650 MG TAB PO SCH (08:39)
--- NOTE | 2021-08-09 09:21 | P.PN ---
Subjective Patient is seen in follow-up for hyponatremia. Sodium level improving with IV hydration. Oral intake fair. Nonoliguric. Has a Maravilla catheter for urinary retention. Hemodynamically stable. Vital signs are stable. General: The patient appeared well nourished and normally developed. HEENT: Head exam is unremarkable. LUNGS: Breath sounds decreased. HEART: Rate and Rhythm are regular. ABDOMEN: Soft, no distention. EXTREMITITES: No edema. Objective - Vital Signs Vital signs: Vital Signs Temp 97.8 F 08/09/21 08:00 Pulse 50 L 08/09/21 08:00 Resp 20 08/09/21 08:00 BP 130/79 08/09/21 08:00 Pulse Ox 94 L 08/09/21 08:00 Intake & Output 08/08/21 08/09/21 08/09/21 18:59 06:59 18:59 Intake Total 1780 600 Output Total 1500 1575 Balance 280 600 -1575 Intake: Intake, IV Titration 700 600 Amount Magnesium Sulfate-D5w Pmx 100 1 gm In Dextrose/Water 1 100ml.bag @ 100 mls/hr IVPB Q1H [facility] Rx#: [id number] Sodium Chloride 0.9% 1, 600 600 000 ml @ 50 mls/hr IV . Q20H [facility] Rx#:[id number] Oral 1080 Output: Urine 1500 1575 Other: Voiding Method Indwelling Catheter Indwelling Catheter - Labs CBC & Chem 7: 08/08/21 07:11 08/08/21 07:11 Labs: Abnormal Lab Results - Last 24 Hours (Table) 08/07/21 08/08/21 Range/Units 01:20 07:11 RBC 2.67 L (4.10-5.20) X 10*6/uL Hgb 7.9 L (12.0-15.0) g/dL Hct 24.3 L (37.2-46.3) % Ur Random Sodium 32 L (40-220) mmol/L Microbiology - Last 24 Hours (Table) 08/05/21 16:42 Blood Culture - Preliminary Blood No Growth after 72 hours 08/05/21 16:42 Blood Culture - Preliminary Blood No Growth after 72 hours Assessment and Plan Plan: Assessment: 1. Hyponatremia secondary to urinary retention. Improved. 2. Urinary retention status post Maravilla catheter placement. On Flomax. 3. Hypokalemia from poor intake and postobstructive diuresis. Replaced. Better. 4. Mild acute kidney injury secondary to urinary retention. Resolved. 5. Benign hypertension. Controlled. Standing blood pressure not low. 6. Anemia. Rule out iron deficiency. Plan: Maintain normal saline at 50 mL an hour. Replace potassium and magnesium as needed. Follow-up morning labs. Discontinue Maravilla catheter and monitor serial postvoid residuals.
[2021-08-09 11:42] LABS: African American GFR (CKD) 106.3 (60.0-200.0); Anion Gap 11.9 mmol/L (4.00-12.00); BUN/Creat Ratio 8.18 Ratio (12.00-20.00); Blood Urea Nitrogen 4.4 mg/dL (9.0-27.0); Calcium 8.7 mg/dL (8.7-10.3); Carbon Dioxide 22.9 mmol/L (21.6-31.8); Magnesium 2.1 mg/dL (1.5-2.4); Non-African American GFR(CKD) 91.7 (60.0-200.0); Potassium 4.2 mmol/L (3.5-5.5)
[2021-08-09] MEDS: ACETAMINOPHEN TAB 325 MG TAB PO PRN (12:01)
[2021-08-09] MEDS: SODIUM CHLORIDE 0.9% 1,000 ML IV SCH (12:02)
[2021-08-09 17:10] LABS: % Iron Saturation 8.5 (12.00-45.00)
[2021-08-09] MEDS: TAMSULOSIN 0.4 MG CAP.ER.24H PO SCH (18:19)
[2021-08-09] MEDS: PROPRANOLOL 40 MG TAB PO SCH (21:21)
[2021-08-09] MEDS: ATORVASTATIN 10 MG TAB PO SCH (21:22)
[2021-08-10 07:16] LABS: African American GFR (CKD) >90 (>60 ml/min/1.73 sqM); Anion Gap 5 mmol/L; Blood Urea Nitrogen 6 mg/dL (7-17); Carbon Dioxide 29 mmol/L (22-30); Chloride 98 mmol/L (98-107); Glucose 104 mg/dL (74-99); Magnesium 1.9 mg/dL (1.6-2.3); Non-African American GFR(CKD) >90 (>60 ml/min/1.73 sqM); Sodium 132 mmol/L (137-145)
[2021-08-10] MEDS: SODIUM BICARBONATE TAB 650 MG TAB PO SCH (08:19)
[2021-08-10] MEDS: SODIUM CHLORIDE 0.9% 1,000 ML IV SCH (08:19)
[2021-08-10] MEDS: ASPIRIN 81 MG PO SCH (08:20)
[2021-08-10] MEDS: LORATADINE 10 MG TAB PO SCH (08:20)
[2021-08-10] MEDS: LOSARTAN 25 MG TAB PO SCH (08:20)
--- NOTE | 2021-08-10 08:39 | P.PN ---
Subjective Progress Note Date: 08/09/21 Her sodium continues to improve, up to 134 today on IV fluids. She continues on oral sodium bicarbonate and da silva in place. Nephrology following Objective - Vital Signs Vital signs: Vital Signs Temp 97.7 F 08/10/21 06:45 Pulse 77 08/10/21 06:45 Resp 17 08/10/21 06:45 BP 138/80 08/10/21 06:45 Pulse Ox 98 08/10/21 06:45 Intake & Output 08/09/21 08/10/21 08/10/21 18:59 06:59 18:59 Intake Total 472 Output Total 3175 1900 400 Balance -3193 -1900 -400 Intake: Oral 472 Output: Urine 3175 1900 400 Straight 1200 Other: Voiding Method Indwelling Catheter # Voids 1 2 # Bowel Movements 1 - Exam General: elderly female in NAD HEENT: normocephalic, atraumatic, mucus membranes moist CV: RRR, no murmur Lungs: normal effort, clear thoughout Neuro: intention tremor, oriented x3 - Labs CBC & Chem 7: 08/08/21 07:11 08/10/21 05:47 Labs: Abnormal Lab Results - Last 24 Hours (Table) 08/09/21 08/09/21 08/10/21 Range/Units 07:42 07:42 05:47 Sodium 134 L 132 L (135-145) mmol/L BUN 4.4 L 6 L (9.0-27.0) mg/dL Creatinine 0.5 L 0.46 L (0.6-1.5) mg/dL BUN/Creatinine Ratio 8.18 L (12.00-20.00) Ratio Glucose 104 H (74-99) mg/dL Iron 20 L (50-170) ug/dL % Saturation 8.50 L (12.00-45.00) Transferrin 169.0 L (204.0-354.0) mg/dL Ferritin 327.0 H (10.0-291.0) ng/mL Microbiology - Last 24 Hours (Table) 08/05/21 16:42 Blood Culture - Preliminary Blood No Growth after 96 hours 08/05/21 16:42 Blood Culture - Preliminary Blood No Growth after 96 hours Assessment and Plan Plan: Continue gentle IV fluid hydration, continue with oral sodium bicarb. Nephrology following. Closely follow electrolytes
--- NOTE | 2021-08-10 09:23 | P.PN ---
Subjective Patient is seen in follow-up for hyponatremia. Sodium level improved from admission. Stable at 132 today. Oral intake fair. Nonoliguric. Maravilla catheter removed August 09. Has been voiding on her own. Hemodynamically stable. Vital signs are stable. General: The patient appeared well nourished and normally developed. HEENT: Head exam is unremarkable. LUNGS: Breath sounds decreased. HEART: Rate and Rhythm are regular. ABDOMEN: Soft, no distention. EXTREMITITES: No edema. Objective - Vital Signs Vital signs: Vital Signs Temp 97.7 F 08/10/21 06:45 Pulse 77 08/10/21 06:45 Resp 17 08/10/21 06:45 BP 138/80 08/10/21 06:45 Pulse Ox 98 08/10/21 06:45 Intake & Output 08/09/21 08/10/21 08/10/21 18:59 06:59 18:59 Intake Total 472 Output Total 3175 1900 400 Balance -2703 -1900 -400 Intake: Oral 472 Output: Urine 3175 1900 400 Straight 1200 Other: Voiding Method Indwelling Catheter # Voids 1 2 # Bowel Movements 1 - Labs CBC & Chem 7: 08/08/21 07:11 08/10/21 05:47 Labs: Abnormal Lab Results - Last 24 Hours (Table) 08/09/21 08/09/21 08/10/21 Range/Units 07:42 07:42 05:47 Sodium 134 L 132 L (135-145) mmol/L BUN 4.4 L 6 L (9.0-27.0) mg/dL Creatinine 0.5 L 0.46 L (0.6-1.5) mg/dL BUN/Creatinine Ratio 8.18 L (12.00-20.00) Ratio Glucose 104 H (74-99) mg/dL Iron 20 L (50-170) ug/dL % Saturation 8.50 L (12.00-45.00) Transferrin 169.0 L (204.0-354.0) mg/dL Ferritin 327.0 H (10.0-291.0) ng/mL Microbiology - Last 24 Hours (Table) 08/05/21 16:42 Blood Culture - Preliminary Blood No Growth after 96 hours 08/05/21 16:42 Blood Culture - Preliminary Blood No Growth after 96 hours Assessment and Plan Plan: Assessment: 1. Hyponatremia secondary to urinary retention. Improved. 2. Urinary retention status post Maravilla catheter placement and removal. On Flomax. 3. Hypokalemia from poor intake and postobstructive diuresis. Replaced. Better. 4. Mild acute kidney injury secondary to urinary retention. Resolved. 5. Benign hypertension. Controlled. Standing blood pressure not low. 6. Anemia. Iron deficiency noted. Plan: Hep-Lock IV fluids. 1200 mL fluid restriction. Add IV iron. Repeat labs in the morning.
[2021-08-10] MEDS: SODIUM FERRIC GLUCONAT-SUCROSE 125 MG in SODIUM CHLORIDE 0.9% 100 ML IVPB SCH (10:59)
[2021-08-10] MEDS ORDERED: ZOLPIDEM 5 MG TAB PO PRN (15:14)
[2021-08-10] MEDS: TAMSULOSIN 0.4 MG CAP.ER.24H PO SCH (17:32)
[2021-08-10] MEDS: IBUPROFEN 200 MG TAB PO PRN (19:47)
[2021-08-10] MEDS: ATORVASTATIN 10 MG TAB PO SCH (20:55)
[2021-08-10] MEDS: PROPRANOLOL 40 MG TAB PO SCH (20:55)
[2021-08-11 07:10] LABS: African American GFR (CKD) >90 (>60 ml/min/1.73 sqM); Anion Gap 6 mmol/L; Blood Urea Nitrogen 8 mg/dL (7-17); Calcium 9.2 mg/dL (8.4-10.2); Carbon Dioxide 28 mmol/L (22-30); Chloride 99 mmol/L (98-107); Glucose 107 mg/dL (74-99); Magnesium 1.8 mg/dL (1.6-2.3); Non-African American GFR(CKD) 87 (>60 ml/min/1.73 sqM); Potassium 4.3 mmol/L (3.5-5.1); Sodium 133 mmol/L (137-145)
[2021-08-11 07:31] VITALS: BP 139/80; PULSE 59; RESP 18; TEMP 97.9
[2021-08-11] MEDS: SODIUM BICARBONATE TAB 650 MG TAB PO SCH (07:46)
[2021-08-11] MEDS: LOSARTAN 25 MG TAB PO SCH (07:46)
[2021-08-11] MEDS: ASPIRIN 81 MG PO SCH (07:46)
[2021-08-11] MEDS: LORATADINE 10 MG TAB PO SCH (07:46)
--- NOTE | 2021-08-11 08:25 | P.PN ---
Subjective Progress Note Date: 08/10/21 Sodium stable at 132 today, she denies weakness, has been on fluid restriction. Maravilla catheter removed yesterday and she is voiding appropriately Objective - Vital Signs Vital signs: Vital Signs Temp 97.9 F 08/11/21 07:30 Pulse 59 L 08/11/21 07:30 Resp 18 08/11/21 07:30 BP 139/80 08/11/21 07:30 Pulse Ox 91 L 08/11/21 07:30 Intake & Output 08/10/21 08/11/21 08/11/21 18:59 06:59 18:59 Intake Total 120 Output Total 400 Balance -400 120 Intake: Oral 120 Output: Urine 400 Other: Voiding Method Toilet Toilet # Voids 4 2 # Bowel Movements 1 - Exam General: elderly female in NAD HEENT: normocephalic, atraumatic, mucus membranes moist CV: RRR, no murmur Lungs: normal effort, clear thoughout Neuro: intention tremor, oriented x3 - Labs CBC & Chem 7: 08/08/21 07:11 08/11/21 06:10 Labs: Abnormal Lab Results - Last 24 Hours (Table) 08/09/21 08/11/21 Range/Units 07:42 06:10 Sodium 133 L (137-145) mmol/L Glucose 107 H (74-99) mg/dL Procalcitonin 0.18 H (0.02-0.09) ng/mL Microbiology - Last 24 Hours (Table) 08/05/21 16:42 Blood Culture - Preliminary Blood No Growth after 120 hours 08/05/21 16:42 Blood Culture - Preliminary Blood No Growth after 120 hours Assessment and Plan Plan: Continue gentle IV fluid hydration, continue with oral sodium bicarb. Continue fluid restriction. Nephrology following. Closely follow electrolytes. Discharge planning in progress
[2021-08-11] MEDS: SODIUM FERRIC GLUCONAT-SUCROSE 125 MG in SODIUM CHLORIDE 0.9% 100 ML IVPB SCH (09:23)
--- NOTE | 2021-08-11 10:39 | P.PN ---
Subjective Patient is seen in follow-up for hyponatremia. Sodium level improved from admission. Stable at 133 today. Oral intake fair. Nonoliguric. Maravilla catheter removed August 09. Has been voiding on her own. Hemodynamically stable. No changes overnight. Vital signs are stable. General: The patient appeared well nourished and normally developed. HEENT: Head exam is unremarkable. LUNGS: Breath sounds decreased. HEART: Rate and Rhythm are regular. ABDOMEN: Soft, no distention. EXTREMITITES: No edema. Objective - Vital Signs Vital signs: Vital Signs Temp 97.9 F 08/11/21 07:30 Pulse 59 L 08/11/21 07:30 Resp 18 08/11/21 07:30 BP 139/80 08/11/21 07:30 Pulse Ox 95 08/11/21 08:36 Intake & Output 08/10/21 08/11/21 08/11/21 18:59 06:59 18:59 Intake Total 120 Output Total 400 Balance -400 120 Intake: Oral 120 Output: Urine 400 Other: Voiding Method Toilet Toilet # Voids 4 2 # Bowel Movements 1 - Labs CBC & Chem 7: 08/08/21 07:11 08/11/21 06:10 Labs: Abnormal Lab Results - Last 24 Hours (Table) 08/09/21 08/11/21 Range/Units 07:42 06:10 Sodium 133 L (137-145) mmol/L Glucose 107 H (74-99) mg/dL Procalcitonin 0.18 H (0.02-0.09) ng/mL Microbiology - Last 24 Hours (Table) 08/05/21 16:42 Blood Culture - Preliminary Blood No Growth after 120 hours 08/05/21 16:42 Blood Culture - Preliminary Blood No Growth after 120 hours Assessment and Plan Plan: Assessment: 1. Hyponatremia secondary to urinary retention. Improved. 2. Urinary retention status post Maravilla catheter placement and removal. On marcela. 3. Hypokalemia from poor intake and postobstructive diuresis. Replaced. Better. 4. Mild acute kidney injury secondary to urinary retention. Resolved. 5. Benign hypertension. Controlled. 6. Anemia. Iron deficiency noted. Plan: Remains off IV fluids. 1200 mL fluid restriction. Encouraged oral intake. Receiving IV iron. Discontinue oral bicarbonate. Follow up outpatient in 1 week.
--- NOTE | 2021-08-11 11:13 | P.DS ---
Providers Date of admission: 08/05/21 19:18 Expected date of discharge: 08/11/21 Attending physician: Jama Melgar MD Consults: 08/06/21 13:53 Consult Physician Routine Consulting Provider: Jeanette Capps Consult Reason/Comments: hyponatremia Do you want consulting provider notified?: Yes Primary care physician: Irina Jackson [facility] Course: Final diagnoses Assessment: Final Diagnoses: Hyponatremia secondary to urinary retention acute kidney injury, mild secondary to urinary retention Hypertension, benign Diabetes mellitus type 2 Anemia, iron deficient Hospital course: Janett Cid is a 76 yo F with PMH of tremors, hypertension, diabetes, hyponatremia who presented to the ED after episodes of near syncope at home. She notes that she had been experiencing episodes of dizziness and passed out multiple times earlier today. She states she was having similar symptoms 2 months ago and was seen by Cardiology at that time and no cardiac cause. She states she has been drinking plenty of fluids every day since her last admission. She has not had a chance to follow [facility] with Neurology. On presentation vitals stable, labs with sodium 123 and Cr 1.06 with baseline 0.6. Evaluated by nephrology. Urine osmolality plan 78, urine random sodium 32 .Significant clinical improvement with IV fluid hydration. Voiding spontaneously post Maravilla catheter. Sodium bicarb discontinued as per nephrology. Patient will be discharged home today in stable condition with guarded prognosis, maintaining strict 1200 mL mL fluid restrictions, pending final clearance/recommendations from nephrology. Close monitoring of sodium levels outpatient. Glucotrol currently on hold, blood sugars controlled currently. Cozaar decreased to 25 mg daily. The impression and plan of care has been dictated as directed. : I performed a history and examination of this patient, discussed the same with the dictator. I agree with the dictator's note ,documented as a scribe. Any additional findings or plans will be noted. Patient Condition at Discharge: Stable Plan - Discharge Summary Discharge Rx Participant: Yes New Discharge Prescriptions: New Tamsulosin HCl [Flomax] 0.4 mg PO PC-SUPPER #30 tablet Losartan [Cozaar] 25 mg PO DAILY #30 tab Continue Propranolol [Inderal] 40 mg PO HS Primidone [Mysoline] 50 mg PO HS Pramipexole [Mirapex] 1 mg PO HS Simvastatin [Zocor] 20 mg PO HS Aspirin [Adult Low Dose Aspirin EC] 81 mg PO DAILY Vitacraves Gummies 2 tab PO DAILY Levocetirizine Dihydrochloride [Xyzal] 5 mg PO DAILY Ibuprofen [Motrin Ib] 200 mg PO Q8H PRN PRN Reason: Pain Vitamin D Gummies (Unknown Dose) 2 tab PO DAILY Discharge Medication List Pramipexole [Mirapex] 1 mg PO HS 01/01/18 [History] Primidone [Mysoline] 50 mg PO HS 01/01/18 [History] Propranolol [Inderal] 40 mg PO HS 01/01/18 [History] Simvastatin [Zocor] 20 mg PO HS 01/01/18 [History] Aspirin [Adult Low Dose Aspirin EC] 81 mg PO DAILY 03/22/18 [History] Ibuprofen [Motrin Ib] 200 mg PO Q8H PRN 05/30/21 [History] Vitacraves Gummies 2 tab PO DAILY 05/30/21 [History] Vitamin D Gummies (Unknown Dose) 2 tab PO DAILY 05/30/21 [History] Levocetirizine Dihydrochloride [Xyzal] 5 mg PO DAILY 08/05/21 [History] Losartan [Cozaar] 25 mg PO DAILY #30 tab 08/11/21 [Rx] Tamsulosin HCl [Flomax] 0.4 mg PO PC-SUPPER #30 tablet 08/11/21 [Rx] Follow up Appointment(s)/Referral(s): Jama Melgar MD [STAFF PHYSICIAN] - 08/16/21 2:00 pm (With Anabelle) Ambulatory/Diagnostic Orders: Basic Metabolic Panel [LAB.AMB] Time Frame: 3 Days, Location: None Selected Patient Instructions/Handouts: Hyponatremia (DC) Activity/Diet/Wound Care/Special Instructions: 1200 mL fluid restriction
== END 2021-08-11 13:00 | disposition home or self-care (01) | DRG 641 ==
LOC: EC 16:08 → 4SSUR 19:18
PROVIDERS: ADMIT Family Medicine; ATTEND Family Medicine
DX: E87.1 Hypo-osmolality and hyponatremia (principal); N17.9 Acute kidney failure, unspecified; E87.2 Acidosis; E11.9 Type 2 diabetes mellitus without complications; D72.819 Decreased white blood cell count, unspecified; D50.9 Iron deficiency anemia, unspecified; Z20.822 Contact with and (suspected) exposure to COVID-19; E86.0 Dehydration; E78.5 Hyperlipidemia, unspecified; E87.6 Hypokalemia; I83.91 Asymptomatic varicose veins of right lower extremity; I10 Essential (primary) hypertension; J30.2 Other seasonal allergic rhinitis; K21.9 Gastro-esophageal reflux disease without esophagitis; R33.9 Retention of urine, unspecified; R25.1 Tremor, unspecified; I95.1 Orthostatic hypotension; M54.9 Dorsalgia, unspecified; M19.90 Unspecified osteoarthritis, unspecified site; Z68.30 Body mass index [BMI] 30.0-30.9, adult; E66.9 Obesity, unspecified; Z79.82 Long term (current) use of aspirin; Z79.899 Other long term (current) drug therapy; Z87.440 Personal history of urinary (tract) infections; Z90.49 Acquired absence of other specified parts of digestive tract; Z90.710 Acquired absence of both cervix and uterus; Z87.19 Personal history of other diseases of the digestive system; Z86.79 Personal history of other diseases of the circulatory system; Z98.890 Other specified postprocedural states; Z91.030 Bee allergy status; Z91.048 Other nonmedicinal substance allergy status; Z82.49 Family history of ischemic heart disease and other diseases of the circulatory system; Z81.8 Family history of other mental and behavioral disorders; Z82.0 Family history of epilepsy and other diseases of the nervous system; Z80.9 Family history of malignant neoplasm, unspecified
CPT/HCPCS: 36415; 70450; 71046; 72125; 72128; 72131; 80048; 80053; 81003; 82728; 83540; 83550; 83605; 83735; 83935; 84132; 84145; 84300; 84484; 85025; 85610; 85730; 87040; 87635; 93005; 96360; 96361; 99285

== ENCOUNTER 2023-02-04 23:13 | Inpatient (IN) | payer MEDICARE ==
--- NOTE | 2023-02-04 23:34 | ED ---
General Adult HPI - General Chief complaint: Fall Stated complaint: Hip Fracture Time Seen by Provider: 02/04/23 23:16 Source: patient, EMS Mode of arrival: EMS Limitations: no limitations - History of Present Illness Initial comments: Dictation was produced using [employer] dictation software. please excuse any grammatical, word or spelling errors. Chief Complaint: 77-year-old female presents after fall History of Present Illness: Is 77-year-old female she is a resident at [facility]. She is at the residential for debility, frequent falls and syncope. Patient is an unreliable historian however she is able to provide some history states that she was in the bathroom she tried to stand up when she fell. According to EMS, but he [facility] staff heard a loud noise in patient's room. They went to check on her immediately. 1 PM today. Patient is brought to the emergency department at approximately 11:15 PM. The ROS documented in this emergency department record has been reviewed and confirmed by me. Those systems with pertinent positive or negative responses have been documented in the HPI. All other systems are other negative and/or noncontributory. - Related Data Home Medications Medication Instructions Recorded Confirmed Pramipexole [Mirapex] 1 mg PO HS 01/01/18 08/05/21 Primidone [Mysoline] 50 mg PO HS 01/01/18 08/05/21 Propranolol [Inderal] 40 mg PO HS 01/01/18 08/05/21 Simvastatin [Zocor] 20 mg PO HS 01/01/18 08/05/21 Aspirin [Adult Low Dose Aspirin EC] 81 mg PO DAILY 03/22/18 08/05/21 Ibuprofen [Motrin Ib] 200 mg PO Q8H PRN 05/30/21 08/05/21 Vitacraves Gummies 2 tab PO DAILY 05/30/21 08/05/21 Vitamin D Gummies (Unknown Dose) 2 tab PO DAILY 05/30/21 08/05/21 Levocetirizine Dihydrochloride 5 mg PO DAILY 08/05/21 08/05/21 [Xyzal] Previous Rx's Medication Instructions Recorded Losartan [Cozaar] 25 mg PO DAILY #30 tab 08/11/21 Tamsulosin HCl [Flomax] 0.4 mg PO PC-SUPPER #30 tablet 08/11/21 Allergies Allergy/AdvReac Type Severity Reaction Status Date / Time bee venom protein (honey bee) Allergy Swelling Verified 08/05/21 18:14 cat dander Allergy Rash/Hives Verified 08/05/21 18:14 Review of Systems ROS Statement: Those systems with pertinent positive or pertinent negative responses have been documented in the HPI. ROS Other: All systems not noted in ROS Statement are negative. Past Medical History Past Medical History: Diabetes Mellitus, GERD/Reflux, Hyperlipidemia, Hypertension, Osteoarthritis (OA) Additional Past Medical History / Comment(s): tremors in hand and heads, varicose veins rt leg, occasional dizzy spells and off balance "comes and goes", seasonal allergies History of Any Multi-Drug Resistant Organisms: None Reported Past Surgical History: Appendectomy, Cholecystectomy, Hysterectomy Additional Past Surgical History / Comment(s): vein stripping lt leg. DIANA PROCEDURE 03/30/18. COLONOSCOPY. hernia repair Past Anesthesia/Blood Transfusion Reactions: No Reported Reaction Past Psychological History: No Psychological Hx Reported Smoking Status: Never smoker Past Alcohol Use History: None Reported Past Drug Use History: None Reported - Past Family History Mother Family Medical History: Coronary Artery Disease (CAD), Dementia Brother(s) Family Medical History: Cancer, Congestive Heart Failure (CHF), Coronary Artery Disease (CAD) Additional Family Medical History / Comment(s): 1 brother of cancer, 1 of heart disease, 3 brothers agent orange 1 brother alzheimer Sister(s) Family Medical History: Cancer Additional Family Medical History / Comment(s): 2 sisters young of cancer General Exam - General Exam Comments Initial Comments: PHYSICAL EXAM: General Impression: Alert and oriented x3, not in acute distress HEENT: Normocephalic atraumatic, extra-ocular movements intact, pupils equal and reactive to light bilaterally, mucous membranes moist. Cardiovascular: Heart regular rate and rhythm Chest: Able to complete full sentences, no retractions, no tachypnea Abdomen: abdomen soft, non-tender, non-distended, no organomegaly Musculoskeletal: Pulses present and equal in all extremities, no peripheral edema, pain with manipulation of the left lower extremity, no gross deformities, left leg appears to be atraumatic. Left leg is not shortened or externally rotated. No ecchymoses Motor: no focal deficits noted Neurological: CN II-XII grossly intact, no focal motor or sensory deficits noted Skin: Intact with no visualized rashes Psych: Normal affect and mood Limitations: no limitations Course Vital Signs 02/04/23 02/05/23 23:17 00:22 Temperature 98.0 F Pulse Rate 70 70 Respiratory 14 14 Rate Blood Pressure 97/70 90/63 O2 Sat by Pulse 94 L 95 Oximetry Medical Decision Making - Medical Decision Making ED course: 77-year-old female presents with left leg pain after fall. Vital signs upon arrival are within acceptable limits. Nursing notes and chart review was performed EKG interpreted by me: Ventricular rate 71, sinus rhythm,. 165, QRS 105, QTC 429. No MS prolongation, no QTC prolongation, no ST or T-wave changes noted. Overall, this EKG is unremarkable Received a call from radiology relay some incidental finding seen on the image. There did not appear to be any traumatic issues and the CT brain and C-spine however there was concern for a parasellar mass versus intracranial arterial aneurysm. There is also what appears to be a large thoracic aorta. Patient denies any chest pain. She denies any headache at this time. Radiology made this aware to me for the purposes of presurgical evaluation. Was pt. sent in by a medical professional or institution (, PA, PULP GRINDER, urgent care, hospital, or residential...) When possible be specific @ -shelter Did you speak to anyone other than the patient for history (EMS, parent, family, police, friend...)? What history was obtained from this source @ -EMS Did you review nursing and triage notes (agree or disagree)? Why? @ -Reviewed, he has agreed Were old charts reviewed (outside hosp., previous admission, EMS record, old EKG, old radiological studies, urgent care reports/EKG's, residential records)? Report findings @ -shelter transfer documentation Differential Diagnosis (chest pain, altered mental status, abdominal pain women, abdominal pain men, vaginal bleeding, musculoskeletal, weakness, fever, dyspnea, syncope, headache, dizziness, GI bleed, back pain, seizure, CVA, palpatations, mental health)? @ -Differential Musculoskeletal: Muscular strain, contusion, ligament sprain, fracture, arthritis, septic arthritis, bursitis, cellulitis, muscle spasm, nerve compression, DVT, arterial occlusion, herpes zoster, electrolyte abnormality, tumor.... This is not meant to be in all inclusive list EKG interpreted by me (3pts min.). @ -See above X-rays interpreted by me (1pt min.). @ -Left intertrochanteric hip fracture tib-fib x-ray and pelvis x-ray otherwise negative. Chest x-ray is nonacute. CT interpreted by me (1pt min.). 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 Is also. The enlarged thoracic aorta. U/S interpreted by me (1pt. min.). @ -None done What testing was considered but not performed or refused? (CT, X-rays, U/S, labs)? Why? @ -None What meds were considered but not given or refused? Why? @ -None Did you discuss the management of the patient with other professionals (professionals i.e. , GIOVANI, PULP GRINDER, lab, RT, psych nurse, older adult social work specialist, manager government, teacher, disability liaison officer, watch case polisher)? Give summary @ -Discussed with orthopedic surgery, Dr. Perez Was smoking cessation discussed for >3mins.? @ -No Was critical care preformed (if so, how long)? @ -No Were there social determinants of health that impacted care today? How? (Homelessness, low income, unemployed, alcoholism, drug addiction, transportation, low edu. Level, literacy, decrease access to med. care, [facility], rehab)? @ -No Was there de-escalation of care discussed even if they declined (Discuss DNR or withdrawal of care, Hospice)? DNR status @ -No What co-morbidities impacted this encounter? (DM, HTN, Smoking, COPD, CAD, Cancer, CVA, ARF, Chemo, Hep., AIDS, mental health diagnosis, sleep apnea, morbid obesity)? @ -None Was patient admitted / discharged? Hospital course, mention meds given and route, prescriptions, significant lab abnormalities, going to OR and other pertinent info. @ -77-year-old female presents to emergency department after fall. She allegedly fell at 1:00 PM. She presented to our emergency department 10 hours later. Patient is a left hip fracture. There were incidental findings that were made aware to me by radiologist. Agree with those interpretations. Giovani frazier be admitted for further care. Undiagnosed new problem with uncertain prognosis? @ -No Drug Therapy requiring intensive monitoring for toxicity (Heparin, Nitro, Insulin, Cardizem)? @ -No Were any procedures done? @ -No Diagnosis/symptom? Acute, or Chronic, or Acute on Chronic? Uncomplicated (without systemic symptoms) or Complicated (systemic symptoms)? @ -1. Acute left hip fracture Side effects of treatment? @ -No Exacerbation, Progression, or Severe Exacerbation? @ -No Poses a threat to life or bodily function? How? (Chest pain, [place], [place], pneumonia, PE, COPD, DKA, ARF, appy, cholecystitis, CVA, Diverticulitis, Homicidal, Suicidal, threat to staff... and all critical care pts) @ -No - Lab Data Result diagrams: 02/04/23 23:31 02/04/23 23:31 Lab Results 02/04/23 02/04/23 Range/Units 23:31 23:31 WBC 9.8 (3.8-10.6) k/uL RBC 3.23 L (3.80-5.40) m/uL Hgb 9.7 L (11.4-16.0) gm/dL Hct 29.1 L (34.0-46.0) % MCV 90.2 (80.0-100.0) fL MCH 30.2 (25.0-35.0) pg MCHC 33.5 (31.0-37.0) g/dL RDW 13.1 (11.5-15.5) % Plt Count 311 (150-450) k/uL MPV 7.8 Neutrophils % 85 % Lymphocytes % 9 % Monocytes % 5 % Eosinophils % 0 % Basophils % 0 % Neutrophils # 8.3 H (1.3-7.7) k/uL Lymphocytes # 0.8 L (1.0-4.8) k/uL Monocytes # 0.5 (0-1.0) k/uL Eosinophils # 0.0 (0-0.7) k/uL Basophils # 0.0 (0-0.2) k/uL Sodium 129 L (137-145) mmol/L Potassium 4.6 (3.5-5.1) mmol/L Chloride 96 L (98-107) mmol/L Carbon Dioxide 25 (22-30) mmol/L Anion Gap 8 mmol/L BUN 16 (7-17) mg/dL Creatinine 0.55 (0.52-1.04) mg/dL Est GFR (CKD-EPI)AfAm >90 (>60 ml/min/1.73 sqM) Est GFR (CKD-EPI)NonAf >90 (>60 ml/min/1.73 sqM) Glucose 115 H (74-99) mg/dL Calcium 8.4 (8.4-10.2) mg/dL Disposition Clinical Impression: Fall, Hip fracture Disposition: ADMITTED IP TO THIS [facility] Condition: Serious Decision Time: 00:45
[2023-02-04 23:58] LABS: Basophils % (A) 0 %; Eosinophils % (A) 0 %; HCT 29.1 % (34.0-46.0); HGB 9.7 gm/dL (11.4-16.0); Lymphocytes # (A) 0.8 k/uL (1.0-4.8); Lymphocytes % (A) 9 %; MCH 30.2 pg (25.0-35.0); MCHC 33.5 g/dL (31.0-37.0); MCV 90.2 fL (80.0-100.0); Mean Platelet Volume 7.8; Monocytes # (A) 0.5 k/uL (0-1.0); Monocytes % (A) 5 %; Neutrophils # (A) 8.3 k/uL (1.3-7.7); Neutrophils % (A) 85 %; Platelet Count 311 k/uL (150-450); RBC 3.23 m/uL (3.80-5.40); RDW 13.1 % (11.5-15.5); WBC 9.8 k/uL (3.8-10.6)
[2023-02-05] LABS: African American GFR (CKD) >90 (>60 ml/min/1.73 sqM); Anion Gap 8 mmol/L; Blood Urea Nitrogen 16 mg/dL (7-17); Calcium 8.4 mg/dL (8.4-10.2); Carbon Dioxide 25 mmol/L (22-30); Chloride 96 mmol/L (98-107); Glucose 115 mg/dL (74-99); Non-African American GFR(CKD) >90 (>60 ml/min/1.73 sqM); Potassium 4.6 mmol/L (3.5-5.1); Sodium 129 mmol/L (137-145)
--- NOTE | 2023-02-05 00:07 | XR ---
EXAMINATION TYPE: XR chest 1V portable DATE OF EXAM: 02/04/2023 COMPARISON: NONE HISTORY: Post fall TECHNIQUE: Single frontal view of the chest is obtained. FINDINGS: Heart size is prominent. There is no pleural effusion or pneumothorax. Patient is rotated which distorts appearance of the mediastinum. No overt failure. IMPRESSION: Limited exam due to rotation demonstrates no definite acute process.
--- NOTE | 2023-02-05 00:09 | XR ---
EXAMINATION TYPE: XR tibia fibula LT DATE OF EXAM: 02/04/2023 COMPARISON: NONE HISTORY: Pain TECHNIQUE: Two views are submitted. FINDINGS: The osseous structures are intact. The joint spaces are preserved. Soft tissue ossification noted. Extensive overlying artifact in the soft tissues. No diagnostic evidence of acute fracture. Arthropat hy of the knee joint. IMPRESSION: 1. No acute osseous abnormality.
--- NOTE | 2023-02-05 00:10 | XR ---
EXAMINATION TYPE: XR femur LT DATE OF EXAM: 02/04/2023 CLINICAL HISTORY: Pain TECHNIQUE: Two views of the left femur are obtained. COMPARISON: None FINDINGS: There is a displaced intertrochanteric fracture of the left femur. Moderate hip arthropath y. Moderate to severe osteoarthritis medial compartment knee joint. IMPRESSION: 1. Displaced intertrochanteric fracture left femur
--- NOTE | 2023-02-05 00:11 | XR ---
EXAMINATION TYPE: XR pelvis AP view DATE OF EXAM: 02/04/2023 COMPARISON: NONE HISTORY: Pain Displaced intertrochanteric fracture left femur with moderate hip arthropathy. Postsurgical change ri ght hip. Prominent bowel loops of bowel gas incidentally noted correlate clinically. SI joints symmet tc. IMPRESSION: 1. Displaced left intertrochanteric femoral fracture. 2. Prominent bowel loops in the abdomen.
[2023-02-05] MEDS ORDERED: MORPHINE SULFATE 4 MG/ML SYRINGE IV STA (00:13)
[2023-02-05] MEDS ORDERED: ACETAMINOPHEN TAB 325 MG TAB PO PRN (00:31)
[2023-02-05] MEDS ORDERED: NALOXONE 0.4 MG/ML 1 ML VIAL IV PRN ×2 (00:31→15:23)
[2023-02-05] MEDS ORDERED: MORPHINE SULFATE 4 MG/ML SYRINGE IV PRN (00:31)
[2023-02-05] MEDS ORDERED: SODIUM CHLORIDE 0.9% 500 ML 500 ML IV STA (00:36)
--- NOTE | 2023-02-05 00:36 | CT ---
EXAMINATION TYPE: CT brain cspine wo con DATE OF EXAM: 02/04/2023 COMPARISON: 08/05/2021 HISTORY: FALL APPROX [address] TODAY. LT LEG PA[address] DLP: 1336.9 mGycm Automated exposure control for dose reduction was used. TECHNIQUE: CT scan of the head and cervical spine are performed without contrast. FINDINGS: There is no acute intracranial hemorrhage, mass effect, or midline shift identified. Ther e is underlying degenerative change and low attenuation white matter which is most typical of microva scular remote white matter ischemia. Calvarium intact. There appears to be right parasellar mass kristen uring 2.1 cm. Differential diagnosis includes carotid artery aneurysm. Meningioma in the differential diagnosis. Assessment spinal canal is limited due to artifact and resolution. There is severe multilevel degener ative disc disease. There is a large thoracic aortic aneurysm involving the aortic arch measuring 5.5 cm with displacement of the trachea. Atherosclerotic plaque involving the origin of the great vessel s. There is multilevel severe degenerative disc disease, there is multilevel foraminal encroachment a nd facet arthropathy. Carotid artery calcifications are noted. Shotty adenopathy seen scattered throu ghout the soft tissue compartments of the neck IMPRESSION: 1. There is no acute fracture or dislocation evident in the cervical spine. Severe multilevel degener ative disc disease and facet arthropathy. 2. No acute intracranial hemorrhage, mass effect, or midline shift is seen. Degenerative and nonspeci fic white matter changes most typical remote ischemia. 3. There is marked enlargement of the aortic arch which is only partially included in the field-of-vi ew at the level of the aortic arch measuring a maximal dimension of 5.7 cm. There is displacement of trachea and esophagus. Findings are suggestive of a large thoracic aortic aneurysm. 4. there is displacement and prominence of the cavernous sinus bilaterally greater on the right and 2 .1 cm parasellar mass. Would favor bilateral carotid artery cavernous segment aneurysm in the differ ential diagnosis. Additional consideration would be meningioma and less likely a pituitary neoplasm. Case discussed with referring ER physician 12:20 AM 02/05/2023.
[2023-02-05] MEDS: SODIUM CHLORIDE 0.9% 1,000 ML IV SCH ×2 (00:49→13:48)
--- NOTE | 2023-02-05 04:48 | P.HPIM ---
History of Present Illness H&P Date: 02/05/23 The patient is a 77-year-old female with a PMH of type II DM, hypertension, and tremors, resident of [facility] who experienced a fall earlier today. The patient was confused and agitated at the time of interview and no meaningful history could be obtained. The history thereby obtained from the ED documentation and provider. The patient had reportedly experienced a fall at around 1 PM earlier today as she attempted to stand up and her bathroom. The staff reportedly heard a loud thud and upon checking in on the patient, noticed that she was on the ground. The patient was subsequently brought to the emergency room at around 11 PM, several hours later for an unknown reason. The patient was combative and refused to answer any questions. In the emergency room, a head/cervical spine CT without contrast revealed a markedly enlarged aortic arch with displacement of the trachea and esophagus with findings suggestive of a large thoracic aortic aneurysm. 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 Pelvis x-ray revealed a displaced left intertrochanteric femoral fracture. Left tibia/fibula x-ray was unremarkable. Chest x-ray although limited revealed no acute abnormalities. EKG revealed sinus rhythm at 71 bpm with poor R-wave progression. Laboratory evaluation was remarkable for hemoglobin 9.7 (up from previously 7.9 on 08/19), sodium 129, chloride 96, glucose 115. ED documentation reviewed and case discussed with ED provider. Review of systems: Pertinent positives and negatives as discussed in HPI, a complete review of systems was performed and all other systems are negative. Physical examination: Vital signs reviewed General: non toxic, no distress, appears at stated age, normal weight Derm: no unusual rashes/lesions, warm Head: atraumatic, normocephalic, symmetric Eyes: EOMI, no lid lag, anicteric sclera, pupils equal round reactive to light ENT: Nose and ears atraumatic Neck: No cervical lymphadenopathy, trachea midline, supple Mouth: no lip lesion, mucus membranes moist Cardiovascular: S1S2 reg, no murmur, positive dorsalis pedis pulse bilateral, no edema Lungs: CTA bilateral, no rhonchi, no rales, no accessory muscle use Abdominal: soft, nontender to palpation, no guarding Ext: mno gross muscle atrophy, no contractures, Neuro: Moving all extremities, no gross focal neuro deficits Psych: Combative, refusing to answer any questions including orientation questions Assessment: Traumatic left femoral intertrochanteric displaced fracture Thoracic aortic aneurysm Parasellar mass Hypochloremic hyponatremia Normocytic anemia Chronic conditions: Type II DM, hypertension, hyperlipidemia Imaging: head/cervical spine CT without contrast revealed a markedly enlarged aortic arch with displacement of the trachea and esophagus with findings suggestive of a large thoracic aortic aneurysm. 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 Pelvis x-ray revealed a displaced left intertrochanteric femoral fracture. Left tibia/fibula x-ray was unremarkable. Chest x-ray although limited revealed no acute abnormalities. EKG revealed sinus rhythm at 71 bpm with poor R-wave progression. Data Review: Laboratory evaluation was remarkable for hemoglobin 9.7 (up from previously 7.9 on 08/19), sodium 129, chloride 96, glucose 115. Plan: Vascular surgery consult for thoracic aortic aneurysm Suspect hypochloremic hyponatremia due to poor oral intake Patient will need outpatient follow-up for parasellar mass Continue with IV fluids normal saline 75 mL/h Monitor BMP Insulin sliding scale and blood glucose monitoring Defer pain control and DVT prophylaxis to the primary surgery service We appreciate this opportunity to be involved in this patient's care. We will follow the patient with you. For any further questions, please not hesitate to contact the sound inpatient team. Past Medical History Past Medical History: Diabetes Mellitus, GERD/Reflux, Hyperlipidemia, Hypertension, Osteoarthritis (OA) Additional Past Medical History / Comment(s): tremors in hand and heads, varicose veins rt leg, occasional dizzy spells and off balance "comes and goes", seasonal allergies History of Any Multi-Drug Resistant Organisms: None Reported Past Surgical History: Appendectomy, Cholecystectomy, Hysterectomy Additional Past Surgical History / Comment(s): vein stripping lt leg. DIANA PROCEDURE 03/30/18. COLONOSCOPY. hernia repair Past Anesthesia/Blood Transfusion Reactions: No Reported Reaction Past Psychological History: No Psychological Hx Reported Smoking Status: Never smoker Past Alcohol Use History: None Reported Past Drug Use History: None Reported - Past Family History Mother Family Medical History: Coronary Artery Disease (CAD), Dementia Brother(s) Family Medical History: Cancer, Congestive Heart Failure (CHF), Coronary Artery Disease (CAD) Additional Family Medical History / Comment(s): 1 brother of cancer, 1 of heart disease, 3 brothers agent orange 1 brother alzheimer Sister(s) Family Medical History: Cancer Additional Family Medical History / Comment(s): 2 sisters young of cancer Medications and Allergies Home Medications Medication Instructions Recorded Confirmed Type Pramipexole [Mirapex] 1 mg PO HS 01/01/18 08/05/21 History Primidone [Mysoline] 50 mg PO HS 01/01/18 08/05/21 History Propranolol [Inderal] 40 mg PO HS 01/01/18 08/05/21 History Simvastatin [Zocor] 20 mg PO HS 01/01/18 08/05/21 History Aspirin [Adult Low Dose Aspirin EC] 81 mg PO DAILY 03/22/18 08/05/21 History Ibuprofen [Motrin Ib] 200 mg PO Q8H PRN 05/30/21 08/05/21 History Vitacraves Gummies 2 tab PO DAILY 05/30/21 08/05/21 History Vitamin D Gummies (Unknown Dose) 2 tab PO DAILY 05/30/21 08/05/21 History Levocetirizine Dihydrochloride 5 mg PO DAILY 08/05/21 08/05/21 History [Xyzal] Losartan [Cozaar] 25 mg PO DAILY #30 tab 08/11/21 Rx Tamsulosin HCl [Flomax] 0.4 mg PO PC-SUPPER #30 tablet 08/11/21 Rx Allergies Allergy/AdvReac Type Severity Reaction Status Date / Time bee venom protein (honey bee) Allergy Swelling Verified 08/05/21 18:14 cat dander Allergy Rash/Hives Verified 08/05/21 18:14 Physical Exam Vitals: Vital Signs Temp Pulse Resp BP BP Pulse Ox 02/05/23 02:00 98.4 F 16 99/68 94 L 02/05/23 01:25 70 14 104/76 100 02/05/23 00:22 70 14 90/63 95 02/04/23 23:17 98.0 F 70 14 97/70 94 L Intake and Output 02/04/23 02/04/23 02/05/23 14:59 22:59 06:59 Other: Weight 58.967 kg Results CBC & Chem 7: 02/04/23 23:31 02/04/23 23:31 Labs: Abnormal Lab Results - Last 24 Hours (Table) 02/04/23 02/04/23 Range/Units 23:31 23:31 RBC 3.23 L (3.80-5.40) m/uL Hgb 9.7 L (11.4-16.0) gm/dL Hct 29.1 L (34.0-46.0) % Neutrophils # 8.3 H (1.3-7.7) k/uL Lymphocytes # 0.8 L (1.0-4.8) k/uL Sodium 129 L (137-145) mmol/L Chloride 96 L (98-107) mmol/L Glucose 115 H (74-99) mg/dL
[2023-02-05 06:40] LABS: Glucose,Whole Blood 99 mg/dL (70-110)
[2023-02-05] MEDS: INSULIN ASPART (NovoLOG) 100 UNIT/ML VIAL SQ SCH ×4 (06:49→21:37)
[2023-02-05] MEDS: HEPARIN SODIUM,PORCINE/PF 5,000 UNIT/0.5 ML SYRINGE SQ SCH ×2 (08:05→16:17)
--- NOTE | 2023-02-05 09:48 | P.GSCN ---
History of Present Illness Consult date: 02/05/23 Reason for Consult: Thoracic aortic aneurysm History of present illness: 77-year-old female with a PMH of type II DM, hypertension, and tremors, resident [facility] who experienced a fall yesterday. During workup in the ED she was found to have a hip fracture on the left and is in need of surgery. Due to the patient being found down and her confusion she did have a CT of the brain and neck without contrast which demonstrated an enlarged aortic arch. She denies any chest pain, back pain currently. She states knowing of the aneurysm but with her confusion she may not be reliable. She denies any upper or lower extremity weakness, fevers, chills, chest pain or shortness of breath. Review of Systems All systems: negative (what is mentioned in the PMH or HPI) Past Medical History Past Medical History: Diabetes Mellitus, GERD/Reflux, Hyperlipidemia, Hypertension, Osteoarthritis (OA) Additional Past Medical History / Comment(s): tremors in hand and heads, varicose veins rt leg, occasional dizzy spells and off balance "comes and goes", seasonal allergies History of Any Multi-Drug Resistant Organisms: None Reported Past Surgical History: Appendectomy, Cholecystectomy, Hysterectomy Additional Past Surgical History / Comment(s): vein stripping lt leg. DIANA PROCEDURE 03/30/18. COLONOSCOPY. hernia repair Past Anesthesia/Blood Transfusion Reactions: No Reported Reaction Past Psychological History: No Psychological Hx Reported Smoking Status: Never smoker Past Alcohol Use History: None Reported Past Drug Use History: None Reported - Past Family History Mother Family Medical History: Coronary Artery Disease (CAD), Dementia Brother(s) Family Medical History: Cancer, Congestive Heart Failure (CHF), Coronary Artery Disease (CAD) Additional Family Medical History / Comment(s): 1 brother of cancer, 1 of heart disease, 3 brothers agent orange 1 brother alzheimer Sister(s) Family Medical History: Cancer Additional Family Medical History / Comment(s): 2 sisters young of cancer Medications and Allergies Home Medications Medication Instructions Recorded Confirmed Type Pramipexole [Mirapex] 1 mg PO HS 01/01/18 08/05/21 History Primidone [Mysoline] 50 mg PO HS 01/01/18 08/05/21 History Propranolol [Inderal] 40 mg PO HS 01/01/18 08/05/21 History Simvastatin [Zocor] 20 mg PO HS 01/01/18 08/05/21 History Aspirin [Adult Low Dose Aspirin EC] 81 mg PO DAILY 03/22/18 08/05/21 History Ibuprofen [Motrin Ib] 200 mg PO Q8H PRN 05/30/21 08/05/21 History Vitacraves Gummies 2 tab PO DAILY 05/30/21 08/05/21 History Vitamin D Gummies (Unknown Dose) 2 tab PO DAILY 05/30/21 08/05/21 History Levocetirizine Dihydrochloride 5 mg PO DAILY 08/05/21 08/05/21 History [Xyzal] Losartan [Cozaar] 25 mg PO DAILY #30 tab 08/11/21 Rx Tamsulosin HCl [Flomax] 0.4 mg PO PC-SUPPER #30 tablet 08/11/21 Rx Allergies Allergy/AdvReac Type Severity Reaction Status Date / Time bee venom protein (honey bee) Allergy Swelling Verified 08/05/21 18:14 cat dander Allergy Rash/Hives Verified 08/05/21 18:14 Surgical - Exam Vital Signs Temp Pulse Resp BP Pulse Ox 98.0 F 70 14 97/70 94 L 02/04/23 23:17 02/04/23 23:17 02/04/23 23:17 02/04/23 23:17 02/04/23 23:17 palpable DP and PT pulses bilaterally palpable radial pulses bilaterally - General well developed, well nourished, no distress - Eyes PERRL, normal ocular movement - ENT normal pinna, normal nares - Neck no masses - Respiratory normal expansion, normal respiratory effort - Cardiovascular Rhythm: regular - Abdomen Abdomen: soft, non tender - Integumentary no rash - Neurologic confused - Psychiatric oriented to person, speech is normal, other Results - Labs 02/04/23 23:31 02/04/23 23:31 Abnormal Lab Results - Last 24 Hours (Table) 02/04/23 02/04/23 Range/Units 23:31 23:31 RBC 3.23 L (3.80-5.40) m/uL Hgb 9.7 L (11.4-16.0) gm/dL Hct 29.1 L (34.0-46.0) % Neutrophils # 8.3 H (1.3-7.7) k/uL Lymphocytes # 0.8 L (1.0-4.8) k/uL Sodium 129 L (137-145) mmol/L Chloride 96 L (98-107) mmol/L Glucose 115 H (74-99) mg/dL Diabetes panel 02/04/23 Range/Units 23:31 Sodium 129 L (137-145) mmol/L Potassium 4.6 (3.5-5.1) mmol/L Chloride 96 L (98-107) mmol/L Carbon Dioxide 25 (22-30) mmol/L BUN 16 (7-17) mg/dL Creatinine 0.55 (0.52-1.04) mg/dL Glucose 115 H (74-99) mg/dL Calcium 8.4 (8.4-10.2) mg/dL Calcium panel 02/04/23 Range/Units 23:31 Calcium 8.4 (8.4-10.2) mg/dL Pituitary panel 02/04/23 Range/Units 23:31 Sodium 129 L (137-145) mmol/L Potassium 4.6 (3.5-5.1) mmol/L Chloride 96 L (98-107) mmol/L Carbon Dioxide 25 (22-30) mmol/L BUN 16 (7-17) mg/dL Creatinine 0.55 (0.52-1.04) mg/dL Glucose 115 H (74-99) mg/dL Calcium 8.4 (8.4-10.2) mg/dL Adrenal panel 02/04/23 Range/Units 23:31 Sodium 129 L (137-145) mmol/L Potassium 4.6 (3.5-5.1) mmol/L Chloride 96 L (98-107) mmol/L Carbon Dioxide 25 (22-30) mmol/L BUN 16 (7-17) mg/dL Creatinine 0.55 (0.52-1.04) mg/dL Glucose 115 H (74-99) mg/dL Calcium 8.4 (8.4-10.2) mg/dL Assessment and Plan Assessment: Thoracic aortic aneurysm Traumatic left femoral intertrochanteric displaced fracture Parasellar mass Normocytic anemia Type II DM hypertension hyperlipidemia Plan: Reviewed CT brain and neck independently and there is evidence of aneurysmal disease involving the aortic arch but the study is without contrast. To better evaluate the aortic aneurysm she will require a CTA of the chest. She is not having any symptoms of the aneurysm at this time and therefore no need for surgical intervention and should not preclude the patient to undergo surgical intervention for her hip. I spoke with orthopedic surgery and would not have any issues clearing for s fang from a vascular standpoint. Thank you for the consultation.
--- NOTE | 2023-02-05 10:00 | P.HPOR ---
History of Present Illness H&P Date: 02/05/23 Chief Complaint: Left hip pain. This is a 77-year-old female who presented to the emergency department yesterday after falling when she was getting up to go to the bathroom. The patient resides at [facility]. The patient is a poor historian. History is obtained from the chart. She was brought to the emergency department and on exam and x- ray she was found to have an intertrochanteric fracture of the left hip. She is admitted to our service for further intervention and care. She has been seen by internal medicine. Vascular consult is pending. Past Medical History Past Medical History: Diabetes Mellitus, GERD/Reflux, Hyperlipidemia, Hypertension, Osteoarthritis (OA) Additional Past Medical History / Comment(s): tremors in hand and heads, varicose veins rt leg, occasional dizzy spells and off balance "comes and goes", seasonal allergies History of Any Multi-Drug Resistant Organisms: None Reported Past Surgical History: Appendectomy, Cholecystectomy, Hysterectomy Additional Past Surgical History / Comment(s): vein stripping lt leg. DIANA PROCEDURE 03/30/18. COLONOSCOPY. hernia repair Past Anesthesia/Blood Transfusion Reactions: No Reported Reaction Past Psychological History: No Psychological Hx Reported Smoking Status: Never smoker Past Alcohol Use History: None Reported Past Drug Use History: None Reported - Past Family History Mother Family Medical History: Coronary Artery Disease (CAD), Dementia Brother(s) Family Medical History: Cancer, Congestive Heart Failure (CHF), Coronary Artery Disease (CAD) Additional Family Medical History / Comment(s): 1 brother of cancer, 1 of heart disease, 3 brothers agent orange 1 brother alzheimer Sister(s) Family Medical History: Cancer Additional Family Medical History / Comment(s): 2 sisters young of cancer Medications and Allergies Home Medications Medication Instructions Recorded Confirmed Type Pramipexole [Mirapex] 1 mg PO HS 01/01/18 08/05/21 History Primidone [Mysoline] 50 mg PO HS 01/01/18 08/05/21 History Propranolol [Inderal] 40 mg PO HS 01/01/18 08/05/21 History Simvastatin [Zocor] 20 mg PO HS 01/01/18 08/05/21 History Aspirin [Adult Low Dose Aspirin EC] 81 mg PO DAILY 03/22/18 08/05/21 History Ibuprofen [Motrin Ib] 200 mg PO Q8H PRN 05/30/21 08/05/21 History Vitacraves Gummies 2 tab PO DAILY 05/30/21 08/05/21 History Vitamin D Gummies (Unknown Dose) 2 tab PO DAILY 05/30/21 08/05/21 History Levocetirizine Dihydrochloride 5 mg PO DAILY 08/05/21 08/05/21 History [Xyzal] Losartan [Cozaar] 25 mg PO DAILY #30 tab 08/11/21 Rx Tamsulosin HCl [Flomax] 0.4 mg PO PC-SUPPER #30 tablet 08/11/21 Rx Allergies Allergy/AdvReac Type Severity Reaction Status Date / Time bee venom protein (honey bee) Allergy Swelling Verified 08/05/21 18:14 cat dander Allergy Rash/Hives Verified 08/05/21 18:14 Physical Examination This is a 77-year-old female in no acute distress. She is alert with some confusion. She does recall the fall. She is aware that she has a fractured hip. Exam of the head neck reveal no obvious deformity. She is able to turn her head side to side. She is nontender over the cervical spine and paraspinal musculature. Exam of the upper extremities is unremarkable. She is able to lift each arm overhead fairly well. She has full wrist and finger motion bilaterally. Neurovascular status to the upper extremities is intact. Exam of the lower extremities reveals no obvious deformity. There is pain with any attempt of motion to the left leg. She is able to dorsiflex the foot and ankle without difficulty or pain. Neurovascular status to the lower extremities grossly intact. Results X-rays reveal a minimally displaced intertrochanteric fracture of the left hip. There are components from a hemiarthroplasty to the right hip. There is an aortic arch aneurysm noted on CT of the neck. - Labs Labs: Abnormal Lab Results - Last 24 Hours (Table) 02/04/23 02/04/23 Range/Units 23:31 23:31 RBC 3.23 L (3.80-5.40) m/uL Hgb 9.7 L (11.4-16.0) gm/dL Hct 29.1 L (34.0-46.0) % Neutrophils # 8.3 H (1.3-7.7) k/uL Lymphocytes # 0.8 L (1.0-4.8) k/uL Sodium 129 L (137-145) mmol/L Chloride 96 L (98-107) mmol/L Glucose 115 H (74-99) mg/dL H & H 02/04/23 Range/Units 23:31 Hgb 9.7 L (11.4-16.0) gm/dL Hct 29.1 L (34.0-46.0) % Result Diagrams: 02/04/23 23:31 02/04/23 23:31 Assessment and Plan (1) Fall Current Visit: Yes Status: Acute Code(s): W19.XXXA - UNSPECIFIED FALL, INITI AL ENCOUNTER SNOMED Code(s): 6279678 (2) Hip fracture Current Visit: Yes Status: Acute Code(s): S72.009A - FRACTURE OF UNSP PART OF NECK OF UNSP FEMUR, INIT SNOMED Code(s): 923812868 (3) Syncope Current Visit: No Status: Acute Code(s): R55 - SYNCOPE AND COLLAPSE SNOMED Code(s): 812314980 Plan: The clinical and x-ray findings are discussed with the patient and nursing staff. It is recommended she undergo closed reduction and insertion of intertrochanteric nail of the left hip. The patient was evaluated by Dr. Rao today who believes that the aneurysm has been present for some time. He has no concerns regarding hip surgery today. The patient has also been seen by internal medicine who is recommending echocardiogram and cardiology consult for her syncopal episodes. We will await medical clearance for surgery and proceed with the intertrochanteric nail when cleared.
[2023-02-05 11:13] LABS: Glucose,Whole Blood 98 mg/dL (70-110)
--- NOTE | 2023-02-05 11:46 | P.CRDCN ---
History of Present Illness Consult date: 02/05/23 History of present illness: 77-year-old female has a known history of type 2 diabetes, hypertension, and tremors, patient resides at [facility]. We've been asked to see the patient for syncope and preoperative clearance. Patient was getting up from going to the bathroom and fallen in her bathroom. Patient is pleasantly confused and a poor historian. Her fall was unwitnessed, and unsure whether or not the patient had fallen or had a syncopal episode. Patient was brought into the ER and found to have a left hip fracture. Her EKG showed sinus rhythm. She underwent a CT of the chest without contrast and was found to have an enlarged aortic arch measuring is possibly large as 5.7 cm. Cardiothoracic has been consulted and a chest CTA has been ordered. Patient will under need to go surgery for the left hip fracture. Patient is resting comfortably in bed in no signs of acute distress at the time of exam. Upon physical exam patient does not have any symptoms of congestive heart failure. She denies any episodes of chest pain. There is no noted systolic heart murmur. Patient does have an aortic aneurysm, will obtain a 2-D echocardiogram after surgery. At that time there is no complete contraindications for surgery under anesthesia. Review of Systems REVIEW OF SYSTEMS At the time of my exam: CONSTITUTIONAL: Denies fever or chills. EYES: Negative for vision changes ENT: Negative for hearing loss CARDIOVASCULAR: Denies chest pain, shortness of breath, diaphoresis, orthopnea, PND or palpitations. VASCULAR: Denies edema RESPIRATORY: Denies cough. GASTROINTESTINAL: Denies abdominal pain, diarrhea, constipation, nausea or vomiting. MUSCULOSKELETAL: Denies myalgias. NEUROLOGIC: Denies numbness, tingling, headache or weakness. ENDOCRINE: Denies fatigue, weight change, polydipsia or polyurina. GENITOURINARY: Denies burning, hematuria or urgency with micturation. HEMATOLOGIC: Denies history of anemia or bleeding. DERMATOLOGY: Denies rash or skin sores PSYCH: Negative for depression or hallucinations. Past Medical History Past Medical History: Diabetes Mellitus, GERD/Reflux, Hyperlipidemia, Hypertension, Osteoarthritis (OA) Additional Past Medical History / Comment(s): tremors in hand and heads, varicose veins rt leg, occasional dizzy spells and off balance "comes and goes", seasonal allergies History of Any Multi-Drug Resistant Organisms: None Reported Past Surgical History: Appendectomy, Cholecystectomy, Hysterectomy Additional Past Surgical History / Comment(s): vein stripping lt leg. DIANA PROCEDURE 03/30/18. COLONOSCOPY. hernia repair Past Anesthesia/Blood Transfusion Reactions: No Reported Reaction Past Psychological History: No Psychological Hx Reported Smoking Status: Never smoker Past Alcohol Use History: None Reported Past Drug Use History: None Reported - Past Family History Mother Family Medical History: Coronary Artery Disease (CAD), Dementia Brother(s) Family Medical History: Cancer, Congestive Heart Failure (CHF), Coronary Artery Disease (CAD) Additional Family Medical History / Comment(s): 1 brother of cancer, 1 of heart disease, 3 brothers agent orange 1 brother alzheimer Sister(s) Family Medical History: Cancer Additional Family Medical History / Comment(s): 2 sisters young of cancer Medications and Allergies Home Medications Medication Instructions Recorded Confirmed Type Primidone [Mysoline] 50 mg PO TID@0700,1300,1900 01/01/18 02/05/23 History Propranolol [Inderal] 40 mg PO DAILY 01/01/18 02/05/23 History Aspirin [Adult Low Dose Aspirin EC] 81 mg PO DAILY 03/22/18 02/05/23 History Acetaminophen [Tylenol 8 Hour] 650 mg PO TID@0700,1300,1900 02/05/23 02/05/23 History Atorvastatin [Lipitor] 10 mg PO HS 02/05/23 02/05/23 History Docusate [Colace] 100 mg PO BID 02/05/23 02/05/23 History Escitalopram Oxalate [Lexapro] 10 mg PO DAILY 02/05/23 02/05/23 History Ferrous Sulfate [Feosol] 325 mg PO DAILY 02/05/23 02/05/23 History Omeprazole 20 mg PO DAILY 02/05/23 02/05/23 History Sodium Bicarbonate Tab 650 mg PO DAILY 02/05/23 02/05/23 History Sodium Chloride Tab 1 gm PO TID@0700,1300,1900 02/05/23 02/05/23 History Tamsulosin HCl [Flomax] 0.4 mg PO DAILY 02/05/23 02/05/23 History methocarbamoL [Robaxin-750] 750 mg PO Q6H PRN 02/05/23 02/05/23 History polyethylene glycoL 3350 [Miralax] 17 gm PO BID 02/05/23 02/05/23 History Allergies Allergy/AdvReac Type Severity Reaction Status Date / Time bee venom protein (honey bee) Allergy Swelling Verified 02/05/23 10:21 cat dander Allergy Rash/Hives Verified 02/05/23 10:21 Physical Exam Vitals: Vital Signs Temp Pulse Pulse Resp BP BP Pulse Ox 02/05/23 07:15 98.9 F 74 16 109/74 95 02/05/23 02:00 98.4 F 16 99/68 94 L 02/05/23 01:25 70 14 104/76 100 02/05/23 00:22 70 14 90/63 95 02/04/23 23:17 98.0 F 70 14 97/70 94 L Intake and Output 02/04/23 02/05/23 02/05/23 22:59 06:59 14:59 Output Total 0 Balance 0 Output: Urine 0 Other: Voiding Method Indwelling Catheter Weight 58.967 kg General: The patient is awake and alert, in no distress, and does not appear acutely ill. Skin: Skin is warm and dry and no rashes or lesions are noted. Eye: Pupils are equal, round and reactive to light, extra-ocular movements are intact; there is normal conjunctiva bilaterally. Ears, nose, mouth and throat: There are moist mucous membranes and no oral lesions. Neck: The neck is supple, there is no tenderness or JVD. Cardiovascular: There is regular rate and rhythm. No murmur, rub or gallop is appreciated. Respiratory: Lungs are clear to auscultation, respirations are non-labored, breath sounds are equal. Gastrointestinal: Soft, non-distended, non-tender abdomen without masses or organomegaly noted. There is no rebound or guarding present. Bowel sounds are unremarkable. Back: There is no tenderness to palpation in the midline. There is no obvious deformity. Musculoskeletal: Normal ROM, no tenderness, There is no pedal edema. There is no calf tenderness or swelling. Extremities: Mild bilateral pitting edema Vascular: Femoral pulse is normal. Posterior tibial pulses are normal .Dorsalis pedis is palpable. Neurological: CN II-XII intact. There are no obvious motor or sensory deficits. Speech is normal. Psychiatric: Cooperative, appropriate mood & affect, normal judgment Results 02/04/23 23:31 02/04/23 23:31 CBC 02/04/23 Range/Units 23:31 WBC 9.8 (3.8-10.6) k/uL RBC 3.23 L (3.80-5.40) m/uL Hgb 9.7 L (11.4-16.0) gm/dL Hct 29.1 L (34.0-46.0) % Plt Count 311 (150-450) k/uL Comprehensive Metabolic Panel 02/04/23 Range/Units 23:31 Sodium 129 L (137-145) mmol/L Potassium 4.6 (3.5-5.1) mmol/L Chloride 96 L (98-107) mmol/L Carbon Dioxide 25 (22-30) mmol/L BUN 16 (7-17) mg/dL Creatinine 0.55 (0.52-1.04) mg/dL Glucose 115 H (74-99) mg/dL Calcium 8.4 (8.4-10.2) mg/dL Current Medications Generic Name Dose Route Start Last Admin Trade Name Freq PRN Reason Stop Dose Admin Acetaminophen 650 mg 02/05/23 00:31 Acetaminophen Tab 325 Mg Tab PO Q6HR PRN Mild Pain or Fever > 100.5 Heparin Sodium (Porcine) 5,000 unit 02/05/23 08:00 02/05/23 08:05 Heparin Sodium,Porcine/Pf 5,000 Unit/0.5 Ml Syringe SQ 5,000 unit Q8HR SANTY Administration Sodium Chloride 1,000 mls @ 75 mls/hr 02/05/23 00:45 02/05/23 00:49 Saline 0.9% IV 75 mls/hr .[id number] SANTY Administration Insulin Aspart 0 unit 02/05/23 07:30 02/05/23 11:14 Insulin Aspart (Novolog) 100 Unit/Ml Vial SQ Not Given ACHS [facility] Protocol Morphine Sulfate 4 mg 02/05/23 00:31 02/05/23 06:52 Morphine Sulfate 4 Mg/Ml Syringe IV 4 mg Q4HR PRN Administration Severe Pain (Scale 7 to 10) Naloxone HCl 0.2 mg 02/05/23 00:31 Naloxone 0.4 Mg/Ml 1 Ml Vial IV Q2M PRN Opioid Reversal Intake and Output 02/04/23 02/05/23 02/05/23 22:59 06:59 14:59 Output Total 0 Balance 0 Output: Urine 0 Other: Voiding Method Indwelling Catheter Weight 58.967 kg 02/04/23 23:31 02/04/23 23:31 Assessment and Plan Assessment: Traumatic left femoral intertrochanteric displaced fracture Hypochloremic hyponatremia Thoracic aortic aneurysm Hypertension Hyperlipidemia Type 2 diabetes Plan: Patient is cleared from a cardiac standpoint for surgery under anesthesia Will obtain a 2-D echo cardiogram postoperatively Continue with all current cardiac medications Further recommendations based on clinical course The above impression and plan of care have been discussed and directed by the signing physician. Minal Sewell, nurse practitioner, acting as scribe for signing physician.
[2023-02-05] MEDS ORDERED: IV FLUID CONTINUATION 600 ML IV ONE (12:58)
[2023-02-05] MEDS ORDERED: SUCCINYLCHOLINE CHLORIDE 200 MG/10 ML VIAL IV ONE (14:12)
[2023-02-05] MEDS ORDERED: PHENYLEPHRINE-0.9% NACL SYG 1,000 MCG/10 ML SYRINGE ONE (14:12)
[2023-02-05] MEDS ORDERED: ePHEDrine 50 MG/ML 1 ML VIAL ONE (14:12)
[2023-02-05] MEDS ORDERED: NEOSTIGMINE 1 MG/ML 10 ML VIAL ONE (14:12)
[2023-02-05] MEDS ORDERED: LIDOCAINE 4% LTA KIT (4 ML) TOPICAL ONE (14:12)
[2023-02-05] MEDS ORDERED: PROPOFOL 10 MG/ML 20 ML VIAL IV ONE (14:12)
[2023-02-05] MEDS ORDERED: fentaNYL (PF) 50 MCG/ML 2 ML AMP ONE (14:12)
[2023-02-05] MEDS ORDERED: GLYCOPYRROLATE 0.2 MG/ML 2 ML VIAL ONE (14:12)
[2023-02-05] MEDS ORDERED: ROCURONIUM 10 MG/ML (5 ML VIAL) IV ONE (14:12)
[2023-02-05] MEDS ORDERED: LIDOCAINE 2% INJ 20 MG/ML (2 ML VIAL) ONE (14:12)
[2023-02-05] MEDS ORDERED: SODIUM CHLORIDE 0.9% 50 ML with ceFAZolin 2,000 MG IV ONE ×2 (14:46)
[2023-02-05] MEDS ORDERED: ceFAZolin 1,000 MG in SODIUM CHLORIDE 0.9% 1,000 ML IRRIGATION ONE (14:59)
--- NOTE | 2023-02-05 15:16 | P.OP ---
Date of Procedure: 02/05/23 Procedure(s) Performed: PREOPERATIVE DIAGNOSIS: Left hip intertrochanteric fracture. POSTOPERATIVE DIAGNOSIS: Left hip intertrochanteric fracture. OPERATION: Left hip intertrochanteric fracture closed reduction and intramedullary nailing using Synthes IT nail. 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 ESTIMATED BLOOD LOSS: 50 mL. COMPLICATIONS: None OPERATIVE FINDINGS: See dictation INDICATIONS: Mrs. Cid is a 77-year-old female with multiple medical problems and dementia with a history of left minimally displaced intertrochanteric fracture. The patient presents to the operating room today for closed reduction and intramedullary nailing. The risks of surgery have been discussed with the power of trust and estates attorney, daughter, in detail as being inclusive of but not limited to: Bleeding, infection, scarring, discomfort, blood vessel and/or nerve damage, need for further surgery, malunion, nonunion, gait disturbance including persistent or permanent limp, limb length inequality, arthritis, hardware failure, blood clot, pulmonary embolism, , and other risks. The consent form has been signed verbally by the patient's daughter who is her power of trust and estates attorney.. PROCEDURE: After appropriate consent was obtained, the patient was taken to the operating room and placed in supine position. Gen. anesthetic was administered and after confirmation of adequate anesthesia, the patient was carefully placed in the supine position on the operating room table in the fracture table. The patient was placed up against a well-padded peroneal post. Care was taken to make sure about that all pressure points were adequately padded. The affected leg was placed in boot traction and the unaffected leg was placed in a well leg rizzo. Using gentle longitudinal distraction as well as adduction and internal rotation, the fracture was reduced as assessed by AP and lateral C-arm imaging. Once a satisfactory reduction had been obtained, the thigh was prepped and draped in the usual aseptic fashion using ChloraPrep. Ioban drape was used for the case and the patient received intravenous antibiotics prior to incision. Timeout was called, confirming patient identity, side, procedure, and administration of antibiotics. The incision was then created with a #10 blade just proximal to the greater trochanter laterally. It was carried down through skin into the subcutaneous tissues and through fascia. Hemostasis was obtained using electrocautery. The tip of the greater trochanter was palpated and a guide pin was placed at the tip and directed into the femoral shaft as assessed with C-arm imaging. Once optimal pin position had been obtained, a 17 mm reamer was used over the guide pin to create a path for the IT nail. IT nail selected was assembled to the insertion jig on the back table and bushings were checked for accuracy. The nail was then inserted using gentle mallet taps until it was fully deployed. The amount of rotation of the implant was assessed based on the amount of anteversion of the femoral neck. This was rotated to match the patient's femoral neck anteversion and the helical blade guide was placed through the insertion jig and through an incision on the lateral side of the thigh more distal than the first. Once this guide was placed against the lateral cortex of the femur, a guide pin was drilled into the central region of the femoral head and neck as based on AP and lateral C-arm imaging. Once optimal pin position had been obtained, the guidewire was measured and appropriately sized helical blade was selected. The path for the helical blade was prepared using a tapered reamer. The helical blade was then inserted using gentle mallet taps along the guidewire until it was fully deployed. There was no displacement of the fracture during this step. The anti-rotation screw was locked down and the insertion apparatus for the helical blade was removed. The guide pin was then removed. Traction was then removed from the leg and the distal interlock was placed through the jig using standard technique. Finally, the insertion jig for the nail was removed and final C-arm images were taken and saved in both AP and lateral planes. The final x-rays showed satisfactory positioning of the implant and good reduction of the fracture. The top of the nail was plugged with a small quantity of bone wax and the incisions were then thoroughly irrigated with normal saline. Final hemostasis was obtained using electrocautery and closure of the fascia was performed using 0-Vicryl suture. 2-0 Vicryl suture was used in the subcutaneous tissues and reji were used for the skin. Sterile dressing was then applied and the patient was carefully removed from the fracture table frame and placed onto the stretcher. The patient tolerated the procedure well. There were no complications and 50 mL of blood loss. The patient was then subsequently transferred to recovery room in stable condition. Sponge and needle counts were correct.
[2023-02-05] MEDS ORDERED: LACTATED RINGERS 1,000 ML IV ONE (15:17)
[2023-02-05] MEDS ORDERED: HYDROmorphone 0.5 MG/0.5 ML SYRINGE IVP PRN (15:23)
[2023-02-05] MEDS ORDERED: HYDROcodone/APAP 5-325MG 1 EACH TAB PO PRN (15:23)
--- NOTE | 2023-02-05 15:29 | XR ---
EXAMINATION TYPE: XR Hip Complete LT DATE OF EXAM: 02/05/2023 COMPARISON: NONE HISTORY: Pain TECHNIQUE: One view submitted. FINDINGS: There is postsurgical change in near anatomic alignment. There is soft tissue edema and emphysema. IMPRESSION: 1. Postoperative change. Appears in near-anatomic alignment.
--- NOTE | 2023-02-05 15:29 | FL ---
EXAMINATION TYPE: FL guidance operating room DATE OF EXAM: 02/05/2023 HISTORY: Fluoroscopy time 39 seconds of fluoroscopy provided. DAP=1.8165 IMPRESSION: 1. Fluoroscopy time.
[2023-02-05 15:40] LABS: Glucose,Whole Blood 91 mg/dL (70-110)
[2023-02-05 16:27] LABS: Glucose,Whole Blood 93 mg/dL (70-110)
[2023-02-05 18:13] LABS: Basophils % (A) 0 %; Eosinophils % (A) 0 %; HCT 28.8 % (34.0-46.0); HGB 9.5 gm/dL (11.4-16.0); Lymphocytes # (A) 1.6 k/uL (1.0-4.8); Lymphocytes % (A) 17 %; MCH 30.9 pg (25.0-35.0); MCV 93.9 fL (80.0-100.0); Mean Platelet Volume 7.8; Monocytes # (A) 0.5 k/uL (0-1.0); Monocytes % (A) 6 %; Neutrophils # (A) 7.2 k/uL (1.3-7.7); Neutrophils % (A) 76 %; Platelet Count 302 k/uL (150-450); RBC 3.07 m/uL (3.80-5.40); RDW 13.3 % (11.5-15.5); WBC 9.4 k/uL (3.8-10.6)
[2023-02-05] MEDS: PRIMIDONE 50 MG TAB PO SCH (18:30)
[2023-02-05] MEDS: ACETAMINOPHEN TAB 325 MG TAB PO SCH (18:30)
[2023-02-05 21:31] LABS: Glucose,Whole Blood 128 mg/dL (70-110)
[2023-02-05] MEDS: DOCUSATE 100 MG CAP PO SCH (21:37)
[2023-02-05] MEDS: polyethylene glycoL 3350 17 GM POWD.PACK PO SCH (21:38)
[2023-02-05] MEDS: SENNOSIDES-DOCUSATE SODIUM 1 EACH TAB PO SCH (21:38)
[2023-02-05] MEDS: HYDROmorphone 0.5 MG/0.5 ML SYRINGE IVP PRN (21:42)
[2023-02-06] MEDS: HEPARIN SODIUM,PORCINE/PF 5,000 UNIT/0.5 ML SYRINGE SQ SCH ×3 (01:16→17:02)
[2023-02-06] MEDS: SODIUM CHLORIDE 0.9% 1,000 ML IV SCH ×2 (03:46→17:45)
[2023-02-06 06:49] LABS: HCT 24.6 % (34.0-46.0); HGB 8.2 gm/dL (11.4-16.0); MCH 30.6 pg (25.0-35.0); MCHC 33.5 g/dL (31.0-37.0); MCV 91.5 fL (80.0-100.0); Mean Platelet Volume 7.6; Platelet Count 262 k/uL (150-450); RBC 2.69 m/uL (3.80-5.40); RDW 13.1 % (11.5-15.5); WBC 6.2 k/uL (3.8-10.6)
[2023-02-06 06:50] LABS: Glucose,Whole Blood 93 mg/dL (70-110)
[2023-02-06] MEDS: HYDROmorphone 0.5 MG/0.5 ML SYRINGE IVP PRN (06:55)
[2023-02-06 07:13] LABS: African American GFR (CKD) >90 (>60 ml/min/1.73 sqM); Anion Gap 6 mmol/L; Blood Urea Nitrogen 13 mg/dL (7-17); Calcium 7.7 mg/dL (8.4-10.2); Carbon Dioxide 27 mmol/L (22-30); Chloride 97 mmol/L (98-107); Glucose 87 mg/dL (74-99); Non-African American GFR(CKD) >90 (>60 ml/min/1.73 sqM); Potassium 3.7 mmol/L (3.5-5.1); Sodium 130 mmol/L (137-145)
[2023-02-06] MEDS: INSULIN ASPART (NovoLOG) 100 UNIT/ML VIAL SQ SCH ×4 (07:24→21:51)
[2023-02-06] MEDS: PRIMIDONE 50 MG TAB PO SCH ×3 (07:25→21:52)
[2023-02-06] MEDS: PANTOPRAZOLE 40 MG TABLET PO SCH (07:25)
[2023-02-06] MEDS: ACETAMINOPHEN TAB 325 MG TAB PO SCH (07:25)
[2023-02-06] MEDS: polyethylene glycoL 3350 17 GM POWD.PACK PO SCH ×2 (08:53→21:51)
[2023-02-06] MEDS: DOCUSATE 100 MG CAP PO SCH ×2 (08:54→21:51)
[2023-02-06] MEDS: TAMSULOSIN 0.4 MG CAP.ER.24H PO SCH (08:54)
[2023-02-06] MEDS: ASPIRIN 81 MG PO SCH (08:54)
[2023-02-06] MEDS: ESCITALOPRAM 10 MG TAB PO SCH (08:54)
[2023-02-06] MEDS: PROPRANOLOL 40 MG TAB PO SCH (08:55)
--- NOTE | 2023-02-06 08:59 | P.PN ---
Subjective Progress Note Date: 02/06/23 HISTORY OF PRESENT ILLNESS: 77-year-old female has a known history of type 2 diabetes, hypertension, and tremors, patient resides at [facility]. We've been asked to see the patient for syncope and preoperative clearance. Patient was getting up from going to the bathroom and fallen in her bathroom. Patient is pleasantly confused and a poor historian. Her fall was unwitnessed, and unsure whether or not the patient had fallen or had a syncopal episode. Patient was brought into the ER and found to have a left hip fracture. Her EKG showed sinus rhythm. She underwent a CT of the chest without contrast and was found to have an enlarged aortic arch measuring is possibly large as 5.7 cm. Cardiothoracic has been consulted and a chest CTA has been ordered. Patient will under need to go surgery for the left hip fracture. Patient is resting comfortably in bed in no signs of acute distress at the time of exam. Upon physical exam patient does not have any symptoms of congestive heart failure. She denies any episodes of chest pain. There is no noted systolic heart murmur. Patient does have an aortic aneurysm, will obtain a 2-D echocardiogram after surgery. At that time there is no complete contraindications for surgery under anesthesia. 02/06/2023 Patient is status post closed reduction and intramedullary nailing of left hip fracture. Postop day #1. Patient examined this morning at the bedside. Patient denies chest pain or pressure. She denies shortness of breath. Blood pressures are on the lower side today, however were well controlled prior to surgery. PHYSICAL EXAM: VITAL SIGNS: Reviewed. GENERAL: Well-developed in no acute distress. NECK: Supple. No JVD or thyromegaly LUNGS: Respirations even and unlabored. Lungs essentially clear to auscultation bilaterally. HEART: Regular rate and rhythm. S1 and S2 heard. EXTREMITIES: Normal range of motion. No clubbing or cyanosis. Peripheral pulses intact. No lower extremity edema ASSESSMENT: Traumatic left femoral intertrochanteric displaced fracture Possible syncope Hyponatremia Thoracic aortic aneurysm Hypertension Hyperlipidemia Diabetes Anemia PLAN: 2-D echo has been ordered. Await results Monitor blood pressure Begin telemetry monitoring as patient may have had a syncopal episode versus vasovagal episode leading to her hip fracture Continue current cardiac medications Further recommendations pending patient's course Nurse practitioner note has been reviewed by physician. Signing provider agrees with the documented findings, assessment, and plan of care. Objective - Vital Signs Vital signs: Vital Signs Temp 98.1 F 02/06/23 07:26 Pulse 74 02/06/23 07:26 Resp 15 02/06/23 07:26 BP 109/54 02/06/23 07:26 Pulse Ox 91 L 02/06/23 08:23 FiO2 Intake & Output 02/05/23 02/06/23 02/06/23 18:59 06:59 18:59 Intake Total 1751 Output Total 700 300 Balance 1051 -300 Intake: IV 1651 LR 600 Intake, IV Titration 100 Amount ceFAZolin 2 gm In Sodium 100 Chloride 0.9% 50 ml @ 100 mls/hr IVPB Q8HR [facility] Rx# :[id number] Output: Urine 650 300 Estimated Blood Loss 50 Other: Voiding Method Indwelling Catheter Indwelling Catheter - Labs CBC & Chem 7: 02/06/23 05:49 02/06/23 05:49 Labs: Abnormal Lab Results - Last 24 Hours (Table) 02/05/23 02/05/23 02/06/23 Range/Units 17:18 21:29 05:49 RBC 3.07 L 2.69 L (3.80-5.40) m/uL Hgb 9.5 L 8.2 L (11.4-16.0) gm/dL Hct 28.8 L 24.6 L (34.0-46.0) % Sodium (137-145) mmol/L Chloride (98-107) mmol/L POC Glucose (mg/dL) 128 H (70-110) mg/dL Calcium (8.4-10.2) mg/dL 02/06/23 Range/Units 05:49 RBC (3.80-5.40) m/uL Hgb (11.4-16.0) gm/dL Hct (34.0-46.0) % Sodium 130 L (137-145) mmol/L Chloride 97 L (98-107) mmol/L POC Glucose (mg/dL) (70-110) mg/dL Calcium 7.7 L (8.4-10.2) mg/dL
[2023-02-06] MEDS ORDERED: SODIUM BICARBONATE TAB 650 MG TAB PO SCH (09:00)
[2023-02-06] MEDS: FERROUS SULFATE 325 MG TAB PO SCH (09:00)
--- NOTE | 2023-02-06 09:24 | P.PN ---
Subjective Progress Note Date: 02/06/23 Principal diagnosis: Intertrochanteric fracture left hip. Status post close reduction with insertion of intertrochanteric nail left hip. This is a 77-year-old female who presented to the emergency department yesterday after falling when she was getting up to go to the bathroom. The patient resides at [facility]. The patient is a poor historian. History is obtained from the chart. She was brought to the emergency department and on exam and x- ray she was found to have an intertrochanteric fracture of the left hip. She is admitted to our service for further intervention and care. 02/06/2023: The patient is postop day #1 status post close reduction with insertion of intertrochanteric nail left hip. She has no new complaints or concerns today. Objective - Vital Signs Vital signs: Vital Signs Temp 98.1 F 02/06/23 07:26 Pulse 74 02/06/23 07:26 Resp 15 02/06/23 07:26 BP 109/54 02/06/23 07:26 Pulse Ox 91 L 02/06/23 08:23 FiO2 Intake & Output 02/05/23 02/06/23 02/06/23 18:59 06:59 18:59 Intake Total 1751 Output Total 700 300 Balance 1051 -300 Intake: IV 1651 LR 600 Intake, IV Titration 100 Amount ceFAZolin 2 gm In Sodium 100 Chloride 0.9% 50 ml @ 100 mls/hr IVPB Q8HR [facility] Rx# :[id number] Output: Urine 650 300 Estimated Blood Loss 50 Other: Voiding Method Indwelling Catheter Indwelling Catheter - Exam This is a pleasant 77-year-old female in no acute distress. She is alert and oriented to person and place. Exam of the left hip reveals that her dressing is clean, dry and intact. There is mild soft tissue swelling noted to the anterior and lateral thigh. No erythema or ecchymosis. She has full foot and ankle motion without difficulty or pain. - Labs CBC & Chem 7: 02/06/23 05:49 02/06/23 05:49 Labs: Abnormal Lab Results - Last 24 Hours (Table) 02/05/23 02/05/23 02/06/23 Range/Units 17:18 21:29 05:49 RBC 3.07 L 2.69 L (3.80-5.40) m/uL Hgb 9.5 L 8.2 L (11.4-16.0) gm/dL Hct 28.8 L 24.6 L (34.0-46.0) % Sodium (137-145) mmol/L Chloride (98-107) mmol/L POC Glucose (mg/dL) 128 H (70-110) mg/dL Calcium (8.4-10.2) mg/dL 02/06/23 Range/Units 05:49 RBC (3.80-5.40) m/uL Hgb (11.4-16.0) gm/dL Hct (34.0-46.0) % Sodium 130 L (137-145) mmol/L Chloride 97 L (98-107) mmol/L POC Glucose (mg/dL) (70-110) mg/dL Calcium 7.7 L (8.4-10.2) mg/dL Assessment and Plan (1) Fall Current Visit: Yes Status: Acute Code(s): W19.XXXA - UNSPECIFIED FALL, I NITIAL ENCOUNTER SNOMED Code(s): 5415989 (2) Hip fracture Current Visit: Yes Status: Acute Code(s): S72.009A - FRACTURE OF UNSP PART OF NECK OF UNSP FEMUR, INIT SNOMED Code(s): 658601401 (3) Syncope Current Visit: No Status: Acute Code(s): R55 - SYNCOPE AND COLLAPSE SNOMED Code(s): 420919384 Plan: The clinical are discussed with the patient and nursing staff. The patient will be discharged to [facility] where she resides. She may be discharged when cleared medically. From an orthopedic standpoint she is stable for discharge.
--- NOTE | 2023-02-06 10:48 | P.PN ---
Subjective Progress Note Date: 02/06/23 Principal diagnosis: Thoracic aortic aneurysm reported on cervical CT report She was seen and examined today is for follow-up. Yesterday she underwent closed reduction with insertion of intertrochanteric nail left hip. Patient denies any abdominal pain, no chest pain or shortness of breath. No acute changes through the night. Objective - Vital Signs Vital signs: Vital Signs Temp 98.1 F 02/06/23 07:26 Pulse 74 02/06/23 07:26 Resp 15 02/06/23 07:26 BP 109/54 02/06/23 07:26 Pulse Ox 91 L 02/06/23 08:23 FiO2 Intake & Output 02/05/23 02/06/23 02/06/23 18:59 06:59 18:59 Intake Total 1751 Output Total 700 300 Balance 1051 -300 Intake: IV 1651 LR 600 Intake, IV Titration 100 Amount ceFAZolin 2 gm In Sodium 100 Chloride 0.9% 50 ml @ 100 mls/hr IVPB Q8HR [facility] Rx# :[id number] Output: Urine 650 300 Estimated Blood Loss 50 Other: Voiding Method Indwelling Catheter Indwelling Catheter - Exam General appearance: The patient is alert, oriented, appears in no acute distress. HET: Head is normocephalic and atraumatic. Pupils are equal and reactive. Neck: Supple. Heart: Regular. Lungs: Equal expansion, normal respiratory effort. Abdomen: Soft, nontender, nondistended. Extremities: Normal skin color and turgor. Palpable bilateral DP and radial pulses. Neurological: No focal deficits noted. - Labs CBC & Chem 7: 02/06/23 05:49 02/06/23 05:49 Labs: Abnormal Lab Results - Last 24 Hours (Table) 02/05/23 02/05/23 02/06/23 Range/Units 17:18 21:29 05:49 RBC 3.07 L 2.69 L (3.80-5.40) m/uL Hgb 9.5 L 8.2 L (11.4-16.0) gm/dL Hct 28.8 L 24.6 L (34.0-46.0) % Sodium (137-145) mmol/L Chloride (98-107) mmol/L POC Glucose (mg/dL) 128 H (70-110) mg/dL Calcium (8.4-10.2) mg/dL 02/06/23 Range/Units 05:49 RBC (3.80-5.40) m/uL Hgb (11.4-16.0) gm/dL Hct (34.0-46.0) % Sodium 130 L (137-145) mmol/L Chloride 97 L (98-107) mmol/L POC Glucose (mg/dL) (70-110) mg/dL Calcium 7.7 L (8.4-10.2) mg/dL Assessment and Plan Assessment: 1. Thoracic aortic aneurysm her head and cervical spine CT report 2. Traumatic left femoral intertrochanteric dislplaced fracture status post closed reduction with insertion of intertrochanteric nail left hip 3. Parasellar mass 4. Normocytic anemia 5. Type 2 diabetes mellitus 6. Hypertension 7. Hyperlipidemia Plan: Dr. Turner Reviewed CT brain and neck independently and there is evidence of aneurysmal disease involving the aortic arch but the study is without contrast. To better evaluate the aortic aneurysm she will require a CTA of the chest. She is not having any symptoms of the aneurysm at this time and therefore no need for surgical intervention and should not preclude the patient to undergo surgical intervention for her hip. She can follow-up as an outpatient with vascular surgery Thank you for the consultation. We will sign off at this time. The impression and plan of care has been dictated as directed. Dr. Turner I performed a history and examination of this patient, discussed the same with the dictator. I agree with the dictator's note ,documented as a scribe. Any additional findings or plans will be note
--- NOTE | 2023-02-06 11:32 | P.PN ---
Subjective Progress Note Date: 02/06/23 Subjective: Patient examined at bedside. No acute events overnight. She is complaining of mild left hip tenderness, but denies any chest pain, shortness of breath, abdominal pain, nausea, vomiting, diarrhea, constipation, or urinary complaints. She currently has a urinary catheter in place. Pertinent positives and negatives as discussed above, a complete review of systems was performed and all other systems are negative. Vitals Signs Reviewed. General: nontoxic, no distress, appears at stated age Derm: warm, dry, right hip dressing clean, dry, intact Head: atraumatic, normocephalic, symmetric Eyes: EOMI, no lid lag, anicteric sclera Mouth: no lip lesion, mucus membranes moist Cardiovascular: S1S2 reg, no murmur Lungs: CTA bilateral, no rhonchi, no rales , no accessory muscle use Abdominal: soft, nontender to palpation, no guarding, no appreciable organomegaly Ext: no gross muscle atrophy, no edema, no contractures Neuro: CN II-XI grossly intact, no focal neuro deficits Psych: Alert, oriented, appropriate affect Data Reviewed Today: Pertinent Labs: Hemoglobin 8.2, sodium 130, creatinine 0.54 Assessment and Plan: Active: Traumatic intertrochanteric left femoral fracture status post repair Normocytic anemia, anticipated outcome of surgery Frequent syncopal episodes Thoracic aortic aneurysm -Ortho note reviewed: Patient is stable for discharge from their standpoint -On oral Tylenol, oral Sassafras, and IV Dilaudid as needed for pain -On subcu heparin for DVT prophylaxis -Patient has no active bleeding -Syncope possibly related to valvular dysfunction given significant thoracic aortic aneurysm, versus vasovagal versus polypharmacy -Cardiology note reviewed: Echocardiogram pending, patient on telemetry Chronic: Hyponatremia Hypertension Dyslipidemia Essential tremors Patient will likely be to be discharged back to nursing facility after her syncope workup is completed. Objective - Vital Signs Vital signs: Vital Signs Temp 98.1 F 02/06/23 07:26 Pulse 74 02/06/23 07:26 Resp 15 02/06/23 07:26 BP 109/54 02/06/23 07:26 Pulse Ox 91 L 02/06/23 08:23 FiO2 Intake & Output 02/05/23 02/06/23 02/06/23 18:59 06:59 18:59 Intake Total 1751 Output Total 700 300 Balance 1051 -300 Intake: IV 1651 LR 600 Intake, IV Titration 100 Amount ceFAZolin 2 gm In Sodium 100 Chloride 0.9% 50 ml @ 100 mls/hr IVPB Q8HR [facility] Rx# :[id number] Output: Urine 650 300 Estimated Blood Loss 50 Other: Voiding Method Indwelling Catheter Indwelling Catheter - Labs CBC & Chem 7: 02/06/23 05:49 02/06/23 05:49 Labs: Abnormal Lab Results - Last 24 Hours (Table) 02/05/23 02/05/23 02/06/23 Range/Units 17:18 21:29 05:49 RBC 3.07 L 2.69 L (3.80-5.40) m/uL Hgb 9.5 L 8.2 L (11.4-16.0) gm/dL Hct 28.8 L 24.6 L (34.0-46.0) % Sodium (137-145) mmol/L Chloride (98-107) mmol/L POC Glucose (mg/dL) 128 H (70-110) mg/dL Calcium (8.4-10.2) mg/dL 02/06/23 Range/Units 05:49 RBC (3.80-5.40) m/uL Hgb (11.4-16.0) gm/dL Hct (34.0-46.0) % Sodium 130 L (137-145) mmol/L Chloride 97 L (98-107) mmol/L POC Glucose (mg/dL) (70-110) mg/dL Calcium 7.7 L (8.4-10.2) mg/dL
[2023-02-06 11:58] LABS: Glucose,Whole Blood 129 mg/dL (70-110)
--- NOTE | 2023-02-06 14:45 | CA ---
Transthoracic Echo Report Name: Janett Cid Age: 77 Gender: F : 1945 Exam Date: 02/06/2023 09:37 Exam Location: [facility] [place] [facility] Ht (in): 62 Wt (lb): 130 Ordering Physician: Ike Aguirre MD Attending/Referring Phys: Specialty Sales Representative Fortunato Fine, BRENDA Procedure CPT: Indications: syncope and aortic aneurysm Cardiac Hx: Aortic Aneurysm Technical Quality: Very technically difficult study; the patient was violent (verbally) Contrast 1: Total Dose (mL): Contrast 2: Total Dose (mL): MEASUREMENTS (Male / Female) Normal Values 2D ECHO LV Diastolic Diameter PLAX 2.5 cm 4.2 - 5.9 / 3.9 - 5.3 cm LV Systolic Diameter PLAX 2.1 cm LV Fractional Shortening PLAX 15.9 % IVS Diastolic Thickness 1.3 cm 0.6 - 1.0 / 0.6 - 0.9 cm IVS Systolic Thickness 1.5 cm LVPW Diastolic Thickness 1.2 cm 0.6 - 1.0 / 0.6 - 0.9 cm LVPW Systolic Thickness 1.5 cm LV Relative Wall Thickness 1.0 RV Internal Dim ED PLAX 2.6 cm Ascending Aorta Diameter 3.0 cm M-MODE Aortic Root Diameter MM 3.9 cm LA Systolic Diameter MM 3.7 cm LA Ao Ratio MM 1.0 AV Cusp Separation MM 0.9 cm DOPPLER PV Peak Velocity 101.6 cm/s PV Peak Gradient 4.1 mmHg FINDINGS Left Ventricle Left ventricular ejection fraction is estimated at 45-50%. Borderline left ventricular hypertrophy. Right Ventricle Normal right ventricular size and function. Right Atrium Not recorded Left Atrium Normal left atrial size. Mitral Valve Structurally normal mitral valve. Aortic Valve Aortic valve not well visualized. Tricuspid Valve not recorded Pulmonic Valve not recorded Pericardium Normal pericardium. Aorta Mild aortic dilatation at the level of the sinuses of valsalva (root). CONCLUSIONS Technically difficult study, very suboptimal windows, off axis views LV ejection fraction probably 45% Previewed by: Dr. Harvey Ramirez MD (Electronically Signed) Final Date: 06 February 2023 14:44
[2023-02-06 17:11] LABS: Glucose,Whole Blood 135 mg/dL (70-110)
[2023-02-06 20:23] LABS: Glucose,Whole Blood 108 mg/dL (70-110)
[2023-02-06] MEDS: SENNOSIDES-DOCUSATE SODIUM 1 EACH TAB PO SCH (21:51)
[2023-02-07] MEDS: HEPARIN SODIUM,PORCINE/PF 5,000 UNIT/0.5 ML SYRINGE SQ SCH ×3 (00:04→16:56)
[2023-02-07] MEDS: PRIMIDONE 50 MG TAB PO SCH ×3 (05:13→18:35)
[2023-02-07] MEDS: PANTOPRAZOLE 40 MG TABLET PO SCH (05:13)
[2023-02-07 06:16] LABS: Glucose,Whole Blood 125 mg/dL (70-110)
[2023-02-07] MEDS: FERROUS SULFATE 325 MG TAB PO SCH (08:20)
[2023-02-07] MEDS: polyethylene glycoL 3350 17 GM POWD.PACK PO SCH ×2 (08:20→21:28)
[2023-02-07] MEDS: TAMSULOSIN 0.4 MG CAP.ER.24H PO SCH (08:20)
[2023-02-07] MEDS: ASPIRIN 81 MG PO SCH (08:20)
[2023-02-07] MEDS: PROPRANOLOL 40 MG TAB PO SCH (08:20)
[2023-02-07] MEDS: DOCUSATE 100 MG CAP PO SCH ×2 (08:21→21:27)
[2023-02-07] MEDS: SODIUM CHLORIDE 0.9% 1,000 ML IV SCH ×2 (08:34→09:25)
[2023-02-07] MEDS: INSULIN ASPART (NovoLOG) 100 UNIT/ML VIAL SQ SCH ×4 (08:46→21:29)
[2023-02-07] MEDS ORDERED: SODIUM CHLORIDE 0.9% 500 ML 500 ML IV ONE (09:54)
[2023-02-07 10:01] LABS: Glucose,Whole Blood 181 mg/dL (70-110)
--- NOTE | 2023-02-07 10:32 | P.PN ---
Subjective Progress Note Date: 02/07/23 HISTORY OF PRESENT ILLNESS: 77-year-old female has a known history of type 2 diabetes, hypertension, and tremors, patient resides at [facility]. We've been asked to see the patient for syncope and preoperative clearance. Patient was getting up from going to the bathroom and fallen in her bathroom. Patient is pleasantly confused and a poor historian. Her fall was unwitnessed, and unsure whether or not the patient had fallen or had a syncopal episode. Patient was brought into the ER and found to have a left hip fracture. Her EKG showed sinus rhythm. She underwent a CT of the chest without contrast and was found to have an enlarged aortic arch measuring is possibly large as 5.7 cm. Cardiothoracic has been consulted and a chest CTA has been ordered. Patient will under need to go surgery for the left hip fracture. Patient is resting comfortably in bed in no signs of acute distress at the time of exam. Upon physical exam patient does not have any symptoms of congestive heart failure. She denies any episodes of chest pain. There is no noted systolic heart murmur. Patient does have an aortic aneurysm, will obtain a 2-D echocardiogram after surgery. At that time there is no complete contraindications for surgery under anesthesia. 02/06/2023 Patient is status post closed reduction and intramedullary nailing of left hip fracture. Postop day #1. Patient examined this morning at the bedside. Patient denies chest pain or pressure. She denies shortness of breath. Blood pressures are on the lower side today, however were well controlled prior to surgery. 02/07/2023 Patient examined this morning at the bedside. Patient denies chest pain or pressure prior to denies shortness of breath. Telemetry reviewed with no evidence of atrial fibrillation or high-grade AV block. Patient's blood pressures are soft with a systolic in the 90s. Echocardiogram completed revealing ejection fraction 45-50%. PHYSICAL EXAM: VITAL SIGNS: Reviewed. GENERAL: Well-developed in no acute distress. NECK: Supple. No JVD or thyromegaly LUNGS: Respirations even and unlabored. Lungs essentially clear to auscultation bilaterally. HEART: Regular rate and rhythm. S1 and S2 heard. EXTREMITIES: Normal range of motion. No clubbing or cyanosis. Peripheral pulses intact. No lower extremity edema ASSESSMENT: Traumatic left femoral intertrochanteric displaced fracture Borderline hypotension Possible syncope Hyponatremia Thoracic aortic aneurysm Hypertension Hyperlipidemia Diabetes Anemia PLAN: Continue current cardiac medications Patient appears dry. She did not eat any of her breakfast of the time of examination. Begin IV fluids at 75 mL an hour Continue to monitor blood pressure Further recommendations pending patient's course Nurse practitioner note has been reviewed by physician. Signing provider agrees with the documented findings, assessment, and plan of care. Objective - Vital Signs Vital signs: Vital Signs Temp 97.6 F 02/07/23 08:00 Pulse 80 02/07/23 08:00 Resp 17 02/07/23 08:00 BP 99/71 02/07/23 08:00 Pulse Ox 94 L 02/07/23 09:30 FiO2 21 02/07/23 09:30 Intake & Output 02/06/23 02/07/23 02/07/23 18:59 06:59 18:59 Output Total 400 400 Balance -400 -400 Output: Urine 400 400 Other: Voiding Method Indwelling Catheter - Labs CBC & Chem 7: 02/06/23 05:49 02/06/23 05:49 Labs: Abnormal Lab Results - Last 24 Hours (Table) 02/06/23 02/06/23 02/07/23 Range/Units 11:33 17:09 06:12 POC Glucose (mg/dL) 129 H 135 H 125 H (70-110) mg/dL 02/07/23 Range/Units 09:59 POC Glucose (mg/dL) 181 H (70-110) mg/dL
[2023-02-07] MEDS ORDERED: SODIUM CHLORIDE 0.9% 1,000 ML IV ONE (10:52)
[2023-02-07 11:05] LABS: Glucose,Whole Blood 142 mg/dL (70-110)
--- NOTE | 2023-02-07 11:29 | XR ---
EXAMINATION TYPE: XR chest 1V portable DATE OF EXAM: 02/07/2023 COMPARISON: NONE HISTORY: Hypotension TECHNIQUE: Single frontal view of the chest is obtained. FINDINGS: The bowel appears to be distended within the abdomen with elevated hemidiaphragms and biba silar subsegmental consolidation. Heart is enlarged and there is prominence to the thoracic aorta hig hly suspicious for a large thoracic aneurysm. No pneumothorax. Hypertrophic degenerative changes spin e. Arthropathy of the shoulders. There is calcific tendinosis of the right shoulder. IMPRESSION: 1. Findings are highly suspicious for a large thoracic aortic aneurysm. 2. Dilated bowel loops within the abdomen correlate clinically for ileus or obstruction 3. Basilar atelectasis versus early infiltrate.
--- NOTE | 2023-02-07 12:10 | P.PN ---
Subjective Progress Note Date: 02/07/23 This 77-year-old female who is status post closed reduction with insertion of intertrochanteric nail left hip. This is postoperative day #2 and patient is seen and evaluated at bedside today. Patient was sleeping when evaluated at bedside today and did not wake up in response to questioning. Objective - Vital Signs Vital signs: Vital Signs Temp 97.6 F 02/07/23 08:00 Pulse 58 L 02/07/23 10:56 Resp 14 02/07/23 10:56 BP 77/37 02/07/23 10:56 Pulse Ox 95 02/07/23 10:56 FiO2 21 02/07/23 09:30 Intake & Output 02/06/23 02/07/23 02/07/23 18:59 06:59 18:59 Output Total 400 400 Balance -400 -400 Output: Urine 400 400 Other: Voiding Method Indwelling Catheter Indwelling Catheter - Exam On exam patient is resting comfortably in bed in no acute distress. Incisions are clean, dry and intact. No drainage. No erythema. Calf is soft and nontender to palpation. Sensation intact. Neurovascular status and circulatory status are intact. - Labs CBC & Chem 7: 02/06/23 05:49 02/06/23 05:49 Labs: Abnormal Lab Results - Last 24 Hours (Table) 02/06/23 02/06/23 02/07/23 Range/Units 11:33 17:09 06:12 POC Glucose (mg/dL) 129 H 135 H 125 H (70-110) mg/dL 02/07/23 Range/Units 09:59 POC Glucose (mg/dL) 181 H (70-110) mg/dL Assessment and Plan (1) Fall Current Visit: Yes Status: Acute Code(s): W19.XXXA - UNSPECIFIED FALL, INI TIAL ENCOUNTER SNOMED Code(s): 1506461 (2) Hip fracture Current Visit: Yes Status: Acute Code(s): S72.009A - FRACTURE OF UNSP PART OF NECK OF UNSP FEMUR, INIT SNOMED Code(s): 978729816 Plan: Status post closed reduction with insertion of the Intertrochanteric nail left hip 1. Patient may weight-bear as tolerated. 2. Appreciate input from internal medicine. 3. Patient's code status is changed to no code per patient's family's wishes. 4. Patient is clear for discharge back to [facility] once cleared medically. Cristina espinoza is being monitored by internal medicine and cardiology for hypotension and mental status changes.
[2023-02-07 12:49] LABS: African American GFR (CKD) >90 (>60 ml/min/1.73 sqM); Anion Gap 5 mmol/L; Blood Urea Nitrogen 14 mg/dL (7-17); Calcium 7.1 mg/dL (8.4-10.2); Carbon Dioxide 25 mmol/L (22-30); Chloride 101 mmol/L (98-107); Glucose 109 mg/dL (74-99); Non-African American GFR(CKD) >90 (>60 ml/min/1.73 sqM); Potassium 3.7 mmol/L (3.5-5.1); Sodium 131 mmol/L (137-145)
[2023-02-07] MEDS: ESCITALOPRAM 10 MG TAB PO SCH (13:03)
[2023-02-07 13:58] LABS: HCT 20.9 % (34.0-46.0); HGB 7.1 gm/dL (11.4-16.0); MCH 30.7 pg (25.0-35.0); MCHC 33.9 g/dL (31.0-37.0); MCV 90.8 fL (80.0-100.0); Mean Platelet Volume 7.5; Platelet Count 243 k/uL (150-450); RDW 13.2 % (11.5-15.5); WBC 5.2 k/uL (3.8-10.6)
[2023-02-07 14:33] LABS: Appearance,Urine Cloudy (Clear); Bacteria,Urine Rare /hpf; Bilirubin,Urine Negative (Negative); Blood,Urine Negative (Negative); Color,Urine Yellow; Glucose,Urine (UA) Negative (Negative); Ketones,Urine Negative (Negative); Leukocyte Esterase,Urine Large (Negative); Mucus,Urine Many /hpf; Nitrite,Urine Negative (Negative); Protein,Urine 1+ (Negative); Squamous Epithelial Cell,Urine 2 /hpf (0-4); Urobilinogen,Urine <2.0 mg/dL (<2.0); WBC,Urine 47 /hpf (0-5)
--- NOTE | 2023-02-07 16:41 | P.PN ---
Subjective Progress Note Date: 02/07/23 Patient examined at bedside. No acute events overnight. Patient is confused and somnelent today. She reports pain in her left hip but unable to quantify any further. She currently has a urinary catheter in place. General: nontoxic, no distress, appears at stated age Derm: warm, dry, left hip incision clean Head: atraumatic, normocephalic, symmetric Eyes: EOMI, no lid lag, anicteric sclera Mouth: no lip lesion, mucus membranes moist Cardiovascular: S1S2 reg, no murmur Lungs: CTA bilateral, no rhonchi, no rales , no accessory muscle use Abdominal: soft, nontender to palpation, no guarding, no appreciable organomegaly Ext: no gross muscle atrophy, no edema, no contractures Neuro: no focal neuro deficits Psych: Alert, oriented x 0-1 Active: Hypovolemic hypotension Acute blood loss anemia, anticipated outcome of surgery Urinary tract infection Traumatic intertrochanteric left femoral fracture status post repair Frequent syncopal episodes Thoracic aortic aneurysm Chronic: Hyponatremia Hypertension Dyslipidemia Essential tremors Based on my assessment of this patient, this patient meets a high complexity level of care. Patient has an acute diagnosis of hypotension that poses a threat to life or bodily function. She is status post closed reduction with insertion of intertrochanteric nail left hip POD 2. Nursing reported blood pressure of 77/33 this morning.She has recieved 1.5L bolus of fluids and is continued on normal saline at 75 cc/hr. Prior to her labs coming back, there was some concerns for sepsis. She has no leukocytosis or tachycardia. Chest x-ray shows findings of large thoracic aortic aneurysm with dilated bowel loops concerning for ileus. Urinalysis was collected which was large leukocyte esterase. Patient started on Rocephin 1 g IV daily. Blood culture is collected. Propranolol is discontinued. I have reviewed the following life consultant notes: Orthopedic note 02/07, patient is clear for discharge back to [facility] once cleared medically Cardiology note 02/07, patient appears dry, begin IV fluids at 75 mL an hour I have reviewed the results of the following tests: CBC shows hemoglobin of 7.1. BMP shows sodium 131, creatinine of 0.48, glucose 109 and calcium of 7.1. Urinalysis shows large leukocyte esterase. I have ordered the following tests: Urine culture ordered. Blood culture ordered. CBC ordered for tomorrow morning . I have discussed the care of this patient with the following independent historian: The case was discussed with nursing regarding the patient's blood pressure and decision made to bolus normal saline and continue maintenance fluids. I have independently interpreted the following test below: Chest x-ray shows findings of large thoracic aortic aneurysm which looks similar to her chest x-ray on admission. I have discussed the management of this patient with the following physician: None. This patient has a high risk of morbidity due to the following reasons: Patient has an acute diagnosis of hypotension that poses a threat to life or bodily function. She is status post closed reduction with insertion of intertrochanteric nail left hip POD 2. Nursing reported blood pressure of 77/33 this morning.She has recieved 1.5L bolus of fluids and is continued on normal saline at 75 cc/hr. Prior to her labs coming back, there was some concerns for sepsis. She has no leukocytosis or tachycardia. Chest x-ray shows findings of large thoracic aortic aneurysm with dilated bowel loops concerning for ileus. Urinalysis was collected which was large leukocyte esterase. Patient started on Rocephin 1 g IV daily. Blood culture is collected. Propranolol is discontinued. Objective - Vital Signs Vital signs: Vital Signs Temp 98.6 F 02/07/23 14:00 Pulse 56 L 02/07/23 14:00 Resp 16 02/07/23 14:00 BP 97/54 02/07/23 14:00 Pulse Ox 91 L 02/07/23 14:00 FiO2 21 02/07/23 09:30 Intake & Output 02/06/23 02/07/23 02/07/23 18:59 06:59 18:59 Output Total 400 400 Balance -400 -400 Output: Urine 400 400 Other: Voiding Method Indwelling Catheter Indwelling Catheter - Labs CBC & Chem 7: 02/07/23 13:42 02/07/23 12:19 Labs: Abnormal Lab Results - Last 24 Hours (Table) 02/06/23 02/07/23 02/07/23 Range/Units 17:09 06:12 09:59 RBC (3.80-5.40) m/uL Hgb (11.4-16.0) gm/dL Hct (34.0-46.0) % Sodium (137-145) mmol/L Creatinine (0.52-1.04) mg/dL Glucose (74-99) mg/dL POC Glucose (mg/dL) 135 H 125 H 181 H (70-110) mg/dL Calcium (8.4-10.2) mg/dL Urine Appearance (Clear) Urine Protein (Negative) Ur Leukocyte Esterase (Negative) Urine WBC (0-5) /hpf Urine Bacteria (None) /hpf Urine Mucus (None) /hpf 02/07/23 02/07/23 02/07/23 Range/Units 11:03 12:19 13:42 RBC 2.30 L (3.80-5.40) m/uL Hgb 7.1 L (11.4-16.0) gm/dL Hct 20.9 L (34.0-46.0) % Sodium 131 L (137-145) mmol/L Creatinine 0.48 L (0.52-1.04) mg/dL Glucose 109 H (74-99) mg/dL POC Glucose (mg/dL) 142 H (70-110) mg/dL Calcium 7.1 L (8.4-10.2) mg/dL Urine Appearance (Clear) Urine Protein (Negative) Ur Leukocyte Esterase (Negative) Urine WBC (0-5) /hpf Urine Bacteria (None) /hpf Urine Mucus (None) /hpf 02/07/23 Range/Units 14:00 RBC (3.80-5.40) m/uL Hgb (11.4-16.0) gm/dL Hct (34.0-46.0) % Sodium (137-145) mmol/L Creatinine (0.52-1.04) mg/dL Glucose (74-99) mg/dL POC Glucose (mg/dL) (70-110) mg/dL Calcium (8.4-10.2) mg/dL Urine Appearance Cloudy H (Clear) Urine Protein 1+ H (Negative) Ur Leukocyte Esterase Large H (Negative) Urine WBC 47 H (0-5) /hpf Urine Bacteria Rare H (None) /hpf Urine Mucus Many H (None) /hpf
[2023-02-07 17:02] LABS: Glucose,Whole Blood 115 mg/dL (70-110)
[2023-02-07 19:31] LABS: Basophils % (A) 0 %; Eosinophils # (A) 0.1 k/uL (0-0.7); Eosinophils % (A) 1 %; HCT 20.8 % (34.0-46.0); HGB 7.1 gm/dL (11.4-16.0); Lymphocytes # (A) 1.1 k/uL (1.0-4.8); Lymphocytes % (A) 21 %; MCH 31.4 pg (25.0-35.0); MCHC 34.2 g/dL (31.0-37.0); MCV 91.8 fL (80.0-100.0); Mean Platelet Volume 7.5; Monocytes # (A) 0.2 k/uL (0-1.0); Monocytes % (A) 4 %; Neutrophils # (A) 4.1 k/uL (1.3-7.7); Neutrophils % (A) 74 %; Platelet Count 245 k/uL (150-450); RBC 2.26 m/uL (3.80-5.40); RDW 13.3 % (11.5-15.5); WBC 5.5 k/uL (3.8-10.6)
[2023-02-07 20:53] LABS: Glucose,Whole Blood 110 mg/dL (70-110)
[2023-02-08] MEDS: HEPARIN SODIUM,PORCINE/PF 5,000 UNIT/0.5 ML SYRINGE SQ SCH ×2 (03:37→09:33)
[2023-02-08 06:06] LABS: Glucose,Whole Blood 105 mg/dL (70-110)
[2023-02-08] MEDS: INSULIN ASPART (NovoLOG) 100 UNIT/ML VIAL SQ SCH ×2 (06:30→11:42)
[2023-02-08] MEDS: PANTOPRAZOLE 40 MG TABLET PO SCH (06:31)
[2023-02-08] MEDS: PRIMIDONE 50 MG TAB PO SCH ×2 (06:31→13:00)
[2023-02-08] MEDS: SODIUM CHLORIDE 0.9% 1,000 ML IV SCH ×2 (06:44→09:36)
--- NOTE | 2023-02-08 07:33 | P.PN ---
Subjective Progress Note Date: 02/08/23 Principal diagnosis: Intertrochanteric fracture left hip. Status post close reduction with insertion of intertrochanteric nail left hip. This is a 77-year-old female who presented to the emergency department yesterday after falling when she was getting up to go to the bathroom. The patient resides at [facility]. The patient is a poor historian. History is obtained from the chart. She was brought to the emergency department and on exam and x- ray she was found to have an intertrochanteric fracture of the left hip. She is admitted to our service for further intervention and care. 02/06/2023: The patient is postop day #1 status post close reduction with insertion of intertrochanteric nail left hip. She has no new complaints or concerns today. 02/08/2023: Patient is postoperative day #3 status post closed reduction with insertion of intertrochanteric nail of the left hip. She has no new complaints or concerns today. She is resting soundly. Vital signs are stable. Objective - Vital Signs Vital signs: Vital Signs Temp 98.4 F 02/08/23 06:55 Pulse 64 02/08/23 06:55 Resp 15 02/08/23 06:55 BP 113/60 02/08/23 06:55 Pulse Ox 95 02/08/23 06:55 FiO2 21 02/07/23 09:30 Intake & Output 02/07/23 02/08/23 02/08/23 18:59 06:59 18:59 Output Total 400 400 Balance -400 -400 Output: Urine 400 400 Other: Voiding Method Indwelling Catheter Indwelling Catheter # Bowel Movements 1 - Exam This is a pleasant 77-year-old female in no acute distress. The patient is resting soundly. Exam of the left hip reveals that her dressing is clean, dry and intact. There is mild soft tissue swelling noted to the anterior and lateral thigh. No erythema or ecchymosis. Neurovascular status to the lower extremities grossly intact. - Labs CBC & Chem 7: 02/07/23 19:20 02/07/23 12:19 Labs: Abnormal Lab Results - Last 24 Hours (Table) 02/07/23 02/07/23 02/07/23 Range/Units 09:59 11:03 12:19 RBC (3.80-5.40) m/uL Hgb (11.4-16.0) gm/dL Hct (34.0-46.0) % Sodium 131 L (137-145) mmol/L Creatinine 0.48 L (0.52-1.04) mg/dL Glucose 109 H (74-99) mg/dL POC Glucose (mg/dL) 181 H 142 H (70-110) mg/dL Calcium 7.1 L (8.4-10.2) mg/dL Urine Appearance (Clear) Urine Protein (Negative) Ur Leukocyte Esterase (Negative) Urine WBC (0-5) /hpf Urine Bacteria (None) /hpf Urine Mucus (None) /hpf 02/07/23 02/07/23 02/07/23 Range/Units 13:42 14:00 17:00 RBC 2.30 L (3.80-5.40) m/uL Hgb 7.1 L (11.4-16.0) gm/dL Hct 20.9 L (34.0-46.0) % Sodium (137-145) mmol/L Creatinine (0.52-1.04) mg/dL Glucose (74-99) mg/dL POC Glucose (mg/dL) 115 H (70-110) mg/dL Calcium (8.4-10.2) mg/dL Urine Appearance Cloudy H (Clear) Urine Protein 1+ H (Negative) Ur Leukocyte Esterase Large H (Negative) Urine WBC 47 H (0-5) /hpf Urine Bacteria Rare H (None) /hpf Urine Mucus Many H (None) /hpf 02/07/23 Range/Units 19:20 RBC 2.26 L (3.80-5.40) m/uL Hgb 7.1 L (11.4-16.0) gm/dL Hct 20.8 L (34.0-46.0) % Sodium (137-145) mmol/L Creatinine (0.52-1.04) mg/dL Glucose (74-99) mg/dL POC Glucose (mg/dL) (70-110) mg/dL Calcium (8.4-10.2) mg/dL Urine Appearance (Clear) Urine Protein (Negative) Ur Leukocyte Esterase (Negative) Urine WBC (0-5) /hpf Urine Bacteria (None) /hpf Urine Mucus (None) /hpf Microbiology - Last 24 Hours (Table) 02/07/23 14:00 Urine Culture - Preliminary Urine,Voided Assessment and Plan (1) Fall Current Visit: Yes Status: Acute Code(s): W19.XXXA - UNSPECIFIED FALL, INITIAL ENCOUNTER SNOMED Code(s): 2949249 (2) Hip fracture Current Visit: Yes Status: Acute Code(s): S72.009A - FRACTURE OF UNSP PART OF NECK OF UNSP FEMUR, INIT SNOMED Code(s): 910065237 (3) Syncope Current Visit: No Status: Acute Code(s): R55 - SYNCOPE AND COLLAPSE SNOMED Code(s): 859606987 Plan: The clinical are discussed with the patient and nursing staff. The patient will be discharged to [facility] where she resides. She may be discharged when cleared medically. From an orthopedic standpoint she is stable for discharge.
[2023-02-08] MEDS: FERROUS SULFATE 325 MG TAB PO SCH (09:34)
[2023-02-08] MEDS: ASPIRIN 81 MG PO SCH (09:34)
[2023-02-08] MEDS: polyethylene glycoL 3350 17 GM POWD.PACK PO SCH (09:34)
[2023-02-08] MEDS: DOCUSATE 100 MG CAP PO SCH (09:34)
[2023-02-08] MEDS: TAMSULOSIN 0.4 MG CAP.ER.24H PO SCH (09:34)
[2023-02-08] MEDS: ESCITALOPRAM 10 MG TAB PO SCH (09:35)
--- NOTE | 2023-02-08 11:12 | P.PN ---
Subjective Progress Note Date: 02/08/23 HISTORY OF PRESENT ILLNESS: 77-year-old female has a known history of type 2 diabetes, hypertension, and tremors, patient resides at [facility]. We've been asked to see the patient for syncope and preoperative clearance. Patient was getting up from going to the bathroom and fallen in her bathroom. Patient is pleasantly confused and a poor historian. Her fall was unwitnessed, and unsure whether or not the patient had fallen or had a syncopal episode. Patient was brought into the ER and found to have a left hip fracture. Her EKG showed sinus rhythm. She underwent a CT of the chest without contrast and was found to have an enlarged aortic arch measuring is possibly large as 5.7 cm. Cardiothoracic has been consulted and a chest CTA has been ordered. Patient will under need to go surgery for the left hip fracture. Patient is resting comfortably in bed in no signs of acute distress at the time of exam. Upon physical exam patient does not have any symptoms of congestive heart failure. She denies any episodes of chest pain. There is no noted systolic heart murmur. Patient does have an aortic aneurysm, will obtain a 2-D echocardiogram after surgery. At that time there is no complete contraindications for surgery under anesthesia. 02/06/2023 Patient is status post closed reduction and intramedullary nailing of left hip fracture. Postop day #1. Patient examined this morning at the bedside. Patient denies chest pain or pressure. She denies shortness of breath. Blood pressures are on the lower side today, however were well controlled prior to surgery. 02/07/2023 Patient examined this morning at the bedside. Patient denies chest pain or pressure prior to denies shortness of breath. Telemetry reviewed with no evidence of atrial fibrillation or high-grade AV block. Patient's blood pressures are soft with a systolic in the 90s. Echocardiogram completed revealing ejection fraction 45-50%. 02/08/2023 Patient examined this more at the bedside. Patient is more awake today. She denies chest pain or pressure. She denies shortness of breath. Vital signs are stable. PHYSICAL EXAM: VITAL SIGNS: Reviewed. GENERAL: Well-developed in no acute distress. NECK: Supple. No JVD or thyromegaly LUNGS: Respirations even and unlabored. Lungs essentially clear to auscultation bilaterally. HEART: Regular rate and rhythm. S1 and S2 heard. EXTREMITIES: Normal range of motion. No clubbing or cyanosis. Peripheral pulses intact. No lower extremity edema ASSESSMENT: Traumatic left femoral intertrochanteric displaced fracture Borderline hypotension Possible syncope Hyponatremia Thoracic aortic aneurysm Hypertension Hyperlipidemia Diabetes Anemia PLAN: Continue current cardiac medications Patient is stable from a cardiology perspective No further inpatient recommendations from a cardiac standpoint We will sign off. Please reconsult if needed. Nurse practitioner note has been reviewed by physician. Signing provider agrees with the documented findings, assessment, and plan of care. Objective - Vital Signs Vital signs: Vital Signs Temp 98.4 F 02/08/23 06:55 Pulse 64 02/08/23 06:55 Resp 15 02/08/23 06:55 BP 113/60 02/08/23 06:55 Pulse Ox 95 02/08/23 08:52 FiO2 21 02/07/23 09:30 Intake & Output 02/07/23 02/08/23 02/08/23 18:59 06:59 18:59 Output Total 400 400 Balance -400 -400 Output: Urine 400 400 Other: Voiding Method Indwelling Catheter Indwelling Catheter # Bowel Movements 1 - Labs CBC & Chem 7: 02/07/23 19:20 02/07/23 12:19 Labs: Abnormal Lab Results - Last 24 Hours (Table) 02/07/23 02/07/23 02/07/23 Range/Units 12:19 13:42 14:00 RBC 2.30 L (3.80-5.40) m/uL Hgb 7.1 L (11.4-16.0) gm/dL Hct 20.9 L (34.0-46.0) % Sodium 131 L (137-145) mmol/L Creatinine 0.48 L (0.52-1.04) mg/dL Glucose 109 H (74-99) mg/dL POC Glucose (mg/dL) (70-110) mg/dL Calcium 7.1 L (8.4-10.2) mg/dL Urine Appearance Cloudy H (Clear) Urine Protein 1+ H (Negative) Ur Leukocyte Esterase Large H (Negative) Urine WBC 47 H (0-5) /hpf Urine Bacteria Rare H (None) /hpf Urine Mucus Many H (None) /hpf 02/07/23 02/07/23 Range/Units 17:00 19:20 RBC 2.26 L (3.80-5.40) m/uL Hgb 7.1 L (11.4-16.0) gm/dL Hct 20.8 L (34.0-46.0) % Sodium (137-145) mmol/L Creatinine (0.52-1.04) mg/dL Glucose (74-99) mg/dL POC Glucose (mg/dL) 115 H (70-110) mg/dL Calcium (8.4-10.2) mg/dL Urine Appearance (Clear) Urine Protein (Negative) Ur Leukocyte Esterase (Negative) Urine WBC (0-5) /hpf Urine Bacteria (None) /hpf Urine Mucus (None) /hpf Microbiology - Last 24 Hours (Table) 02/07/23 14:00 Urine Culture - Preliminary Urine,Voided
[2023-02-08 11:15] LABS: Glucose,Whole Blood 130 mg/dL (70-110)
[2023-02-08 11:54] LABS: HCT 21.5 % (34.0-46.0); HGB 7.2 gm/dL (11.4-16.0); MCH 30.4 pg (25.0-35.0); MCHC 33.5 g/dL (31.0-37.0); MCV 90.7 fL (80.0-100.0); Mean Platelet Volume 8.6; Platelet Count 244 k/uL (150-450); RBC 2.37 m/uL (3.80-5.40); RDW 13.4 % (11.5-15.5); WBC 5.3 k/uL (3.8-10.6)
--- NOTE | 2023-02-08 12:08 | P.PN ---
Subjective Progress Note Date: 02/08/23 Patient examined at bedside. No acute events overnight. Patient is much more awake and responsive today. She was able to eat most of her breakfast. She denies any complaints. She currently has a urinary catheter in place. BP 113/60 much improved since yesterday. General: nontoxic, no distress, appears at stated age Derm: warm, dry, left hip incision clean Head: atraumatic, normocephalic, symmetric Eyes: EOMI, no lid lag, anicteric sclera Mouth: no lip lesion, mucus membranes moist Cardiovascular: S1S2 reg, no murmur Lungs: CTA bilateral, no rhonchi, no rales , no accessory muscle use Abdominal: soft, nontender to palpation, no guarding, no appreciable organomegaly, + da silva catheter Ext: no gross muscle atrophy, no edema, no contractures Neuro: no focal neuro deficits Psych: Alert, oriented x 0-1 Active: Hypovolemic hypotension Acute blood loss anemia, anticipated outcome of surgery Urinary tract infection Traumatic intertrochanteric left femoral fracture status post repair Frequent syncopal episodes Thoracic aortic aneurysm Chronic: Hyponatremia Hypertension Dyslipidemia Essential tremors Based on my assessment of this patient, this patient meets a moderate complexity level of care. I have reviewed the following ibm websphere commerce consultant notes: None. I have reviewed the results of the following tests: None. I have ordered the following tests: Urine culture pending. Blood culture is pending. CBC is pending. I have discussed the care of this patient with the following independent historian: The case was discussed with nursing, her mentation has improved since yesterday and she was able to eat most of her breakfast. I have independently interpreted the following test below: None. I have discussed the management of this patient with the following physician: None. This patient has a high risk of morbidity due to the following reasons: Patient has an acute diagnosis of hypotension that poses a threat to life or bodily function. She is status post closed reduction with insertion of intertrochanteric nail left hip POD 3. Nursing reported blood pressure of 77/33 on 02/07. She was hydrated overnight and Propranolol was held, BP improved. She has no leukocytosis or is not tachycardic, she does not meet sepsis criteria. Her UA is concerning for UTI and she has received 2 days of Rocephin. She is to continue 3 more days of Bactrim. She is to repeat CBC in 3 days to be followed up by her PCP. She has been cleared by Cardiology for discharge. She is medically cleared for discharge if today's hemoglobin remains stable and > 7. Objective - Vital Signs Vital signs: Vital Signs Temp 98.4 F 02/08/23 06:55 Pulse 64 02/08/23 06:55 Resp 15 02/08/23 06:55 BP 113/60 02/08/23 06:55 Pulse Ox 95 02/08/23 08:52 FiO2 21 02/07/23 09:30 Intake & Output 02/07/23 02/08/23 02/08/23 18:59 06:59 18:59 Output Total 400 400 Balance -400 -400 Output: Urine 400 400 Other: Voiding Method Indwelling Catheter Indwelling Catheter # Bowel Movements 1 - Labs CBC & Chem 7: 02/08/23 11:24 02/07/23 12:19 Labs: Abnormal Lab Results - Last 24 Hours (Table) 02/07/23 02/07/23 02/07/23 Range/Units 12:19 13:42 14:00 RBC 2.30 L (3.80-5.40) m/uL Hgb 7.1 L (11.4-16.0) gm/dL Hct 20.9 L (34.0-46.0) % Sodium 131 L (137-145) mmol/L Creatinine 0.48 L (0.52-1.04) mg/dL Glucose 109 H (74-99) mg/dL POC Glucose (mg/dL) (70-110) mg/dL Calcium 7.1 L (8.4-10.2) mg/dL Urine Appearance Cloudy H (Clear) Urine Protein 1+ H (Negative) Ur Leukocyte Esterase Large H (Negative) Urine WBC 47 H (0-5) /hpf Urine Bacteria Rare H (None) /hpf Urine Mucus Many H (None) /hpf 02/07/23 02/07/23 02/08/23 Range/Units 17:00 19:20 11:13 RBC 2.26 L (3.80-5.40) m/uL Hgb 7.1 L (11.4-16.0) gm/dL Hct 20.8 L (34.0-46.0) % Sodium (137-145) mmol/L Creatinine (0.52-1.04) mg/dL Glucose (74-99) mg/dL POC Glucose (mg/dL) 115 H 130 H (70-110) mg/dL Calcium (8.4-10.2) mg/dL Urine Appearance (Clear) Urine Protein (Negative) Ur Leukocyte Esterase (Negative) Urine WBC (0-5) /hpf Urine Bacteria (None) /hpf Urine Mucus (None) /hpf 02/08/23 Range/Units 11:24 RBC 2.37 L (3.80-5.40) m/uL Hgb 7.2 L (11.4-16.0) gm/dL Hct 21.5 L (34.0-46.0) % Sodium (137-145) mmol/L Creatinine (0.52-1.04) mg/dL Glucose (74-99) mg/dL POC Glucose (mg/dL) (70-110) mg/dL Calcium (8.4-10.2) mg/dL Urine Appearance (Clear) Urine Protein (Negative) Ur Leukocyte Esterase (Negative) Urine WBC (0-5) /hpf Urine Bacteria (None) /hpf Urine Mucus (None) /hpf Microbiology - Last 24 Hours (Table) 02/07/23 14:00 Urine Culture - Preliminary Urine,Voided
[2023-02-08 12:18] LABS: African American GFR (CKD) >90 (>60 ml/min/1.73 sqM); Anion Gap 6 mmol/L; Blood Urea Nitrogen 7 mg/dL (7-17); Calcium 7.3 mg/dL (8.4-10.2); Carbon Dioxide 24 mmol/L (22-30); Chloride 100 mmol/L (98-107); Glucose 110 mg/dL (74-99); Non-African American GFR(CKD) >90 (>60 ml/min/1.73 sqM); Potassium 3.2 mmol/L (3.5-5.1); Sodium 130 mmol/L (137-145)
[2023-02-08] MEDS ORDERED: POTASSIUM CHLORIDE ER 20 MEQ TAB.ER PO STA (12:46)
[2023-02-08 13:46] VITALS: BP 88/54; PULSE 76; RESP 16; TEMP 98.3
--- NOTE | 2023-02-08 13:52 | P.DS ---
Providers Date of admission: 02/05/23 00:31 Expected date of discharge: 02/08/23 Attending physician: Francisco Javier Perez Consults: 02/05/23 00:26 Consult Physician Routine Consulting Provider: Joe Chu Consult Reason/Comments: IM consultation Do you want consulting provider notified?: Yes Primary care physician: Arlyn Noriega, DO - Discharge Diagnosis(es) (1) Fall Current Visit: Yes Status: Acute (2) Hip fracture Current Visit: Yes Status: Acute (3) Syncope Current Visit: No Status: Acute Hospital Course: This is a 77-year-old female who was admitted through the emergency department on 02/04/2023 after falling and sustaining injury to her left hip. On exam and x- ray in the emergency department she was found to have an intertrochanteric fracture of the left hip. She was admitted to our service for surgical intervention and care. The patient is taken to the OR for closed reduction and insertion of intertrochanteric nail of the left hip on 02/05/2023. The procedure was performed without complication or sequelae. The patient was evaluated preoperatively by internal medicine and cardiology. The patient is stable from an arthritic standpoint on postop day #3. She may be discharged back to [facility] today. Please see med rec for accurate list of home medications. Patient Condition at Discharge: Serious Plan - Discharge Summary Discharge Rx Participant: No New Discharge Prescriptions: New Aspirin [Adult Low Dose Aspirin EC] 81 mg PO BID #60 tab HYDROcodone/APAP 5-325MG [[place] 5-325] 1 tab PO Q6HR PRN #20 tab PRN Reason: Pain Sulfamethox-Tmp 800-160Mg [Bactrim DS 800-160 mg] 1 tab PO Q12HR #6 tab Continue Primidone [Mysoline] 50 mg PO TID@0700,1300,1900 Sodium Chloride Tab 1 gm PO TID@0700,1300,1900 Omeprazole 20 mg PO DAILY Tamsulosin HCl [Flomax] 0.4 mg PO DAILY Escitalopram Oxalate [Lexapro] 10 mg PO DAILY polyethylene glycoL 3350 [Miralax] 17 gm PO BID Docusate [Colace] 100 mg PO BID Ferrous Sulfate [Iron (65 MG Elemental)] 325 mg PO DAILY Atorvastatin [Lipitor] 10 mg PO HS Changed Acetaminophen [Tylenol 8 Hour] 650 mg PO TID@0700,1300,1900 PRN #0 PRN Reason: Pain Discontinued Propranolol [Inderal] 40 mg PO DAILY Aspirin [Adult Low Dose Aspirin EC] 81 mg PO DAILY methocarbamoL [Robaxin-750] 750 mg PO Q6H PRN PRN Reason: Muscle Spasm Sodium Bicarbonate Tab 650 mg PO DAILY Discharge Medication List Primidone [Mysoline] 50 mg PO TID@0700,1300,1900 01/01/18 [History] Atorvastatin [Lipitor] 10 mg PO HS 02/05/23 [History] Docusate [Colace] 100 mg PO BID 02/05/23 [History] Escitalopram Oxalate [Lexapro] 10 mg PO DAILY 02/05/23 [History] Ferrous Sulfate [Iron (65 MG Elemental)] 325 mg PO DAILY 02/05/23 [History] Omeprazole 20 mg PO DAILY 02/05/23 [History] Sodium Chloride Tab 1 gm PO TID@0700,1300,1900 02/05/23 [History] Tamsulosin HCl [Flomax] 0.4 mg PO DAILY 02/05/23 [History] polyethylene glycoL 3350 [Miralax] 17 gm PO BID 02/05/23 [History] Aspirin [Adult Low Dose Aspirin EC] 81 mg PO BID #60 tab 02/06/23 [Rx] HYDROcodone/APAP 5-325MG [[place] 5-325] 1 tab PO Q6HR PRN #20 tab 02/06/23 [Rx] Acetaminophen [Tylenol 8 Hour] 650 mg PO TID@0700,1300,1900 PRN #0 02/08/23 [Rx] Sulfamethox-Tmp 800-160Mg [Bactrim DS 800-160 mg] 1 tab PO Q12HR #6 tab 02/08/23 [Rx] Follow up Appointment(s)/Referral(s): Winter Chacon PAC [PHYSICIAN CUSTOMER SERVICE CORRESPONDENCE CLERK] - 3 Weeks Irina Jackson DO [REFERRING] - 1-2 days Ambulatory/Diagnostic Orders: Complete Blood Count w/diff [LAB.AMB] Time Frame: 3 Days, Location: None Selected Patient Instructions/Handouts: Intramedullary Nailing (DC), ORIF of Hip Fracture (DC) Activity/Diet/Wound Care/Special Instructions: May be weightbearing as tolerated with walker. May shower. May remove Dermabond tape 2 weeks postoperatively. Follow up with your PCP within 1-2 days of discharge. Repeat CBC in 3 days to be followed up with PCP. Bactrim for 3 more days for treatment of UTI. Discontinue [place]illa catheter on 02/09. Discharge Disposition: TRANSFER TO SNF/ECF
== END 2023-02-08 15:52 | DRG 481 ==
LOC: EC 23:13 → 4SSUR 02-05 00:31
PROVIDERS: ADMIT Orthopaedic Surgery; ATTEND Orthopaedic Surgery
PROC: 8E0YXBF Computer Assisted Procedure of Lower Extremity, With Fluoroscopy (ICD-10-PCS; 2023-02-05)
PROC: 0QS736Z Reposition Left Upper Femur with Intramedullary Internal Fixation Device, Percutaneous Approach (ICD-10-PCS; principal; 2023-02-05 11:30)
PROC: B246ZZ4 Ultrasonography of Right and Left Heart, Transesophageal (ICD-10-PCS; 2023-02-06)
DX: S72.142A Displaced intertrochanteric fracture of left femur, initial encounter for closed fracture (principal); D62 Acute posthemorrhagic anemia; E87.1 Hypo-osmolality and hyponatremia; F03.911 Unspecified dementia, unspecified severity, with agitation; R29.6 Repeated falls; E11.41 Type 2 diabetes mellitus with diabetic mononeuropathy; E78.5 Hyperlipidemia, unspecified; W19.XXXA Unspecified fall, initial encounter; E86.1 Hypovolemia; I95.9 Hypotension, unspecified; G25.0 Essential tremor; R55 Syncope and collapse; E87.8 Other disorders of electrolyte and fluid balance, not elsewhere classified; E23.6 Other disorders of pituitary gland; I10 Essential (primary) hypertension; I71.20 Thoracic aortic aneurysm, without rupture, unspecified; M19.90 Unspecified osteoarthritis, unspecified site; J30.81 Allergic rhinitis due to animal (cat) (dog) hair and dander; J30.2 Other seasonal allergic rhinitis; Z90.710 Acquired absence of both cervix and uterus; Z90.49 Acquired absence of other specified parts of digestive tract; Z87.19 Personal history of other diseases of the digestive system; Z91.030 Bee allergy status; Z79.82 Long term (current) use of aspirin
CPT/HCPCS: 36415; 70450; 71045; 72125; 72170; 73502; 80048; 81001; 85025; 85027; 87040; 87086; 93005; 93306; 94760; 96361; 96374; 99285